=== PATIENT | female | born 1950 | race Caucasian/White ===

== ENCOUNTER 2018-04-21 06:08 | Inpatient (IN) ==
[~2018-04-21 06:08] MED LIST: SODIUM CHLORIDE IX ONE; TALC IX ONE
[2018-04-21] MEDS ORDERED: SUGAMMADEX SODIUM 500 MG/5 ML VIAL IV ONE (06:32)
--- NOTE | 2018-04-21 06:35 | Anesthesia Evaluation PreOp ---
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: Denies Any Significant HX Other Medical History: GERD, Other (esophageal cancer treated with chemo) Anesthesia History: No Prior Anesthetic Complications, Past Anesthesia (EDWARD, EGD, Hernia repair, c-scope) Alcohol Use: none Drug use: none Medications and Allergies Omeprazole [PriLOSEC] 20 mg PO BIDAC 12/12/17 [History] Lisinopril-HCTZ 10-12.5 [Prinzide 10-12.5] 10 - 12.5 mg DAILY 04/21/18 [History] Allergy/AdvReac Type Severity Reaction Status Date / Time No Known Allergies Allergy Verified 04/13/18 09:45 - Meds/Allergy Pre-op Review Medications Reviewed: Yes Allergies Reviewed: Yes Beta Blockers on Current Med List: No Anesthesia Results - Labs Laboratory Tests 03/01/18 04/13/18 04/13/18 08:17 09:50 09:50 Hgb 13.2 Hct 40.2 Plt Count 178 Sodium 137 Potassium 4.2 Chloride 102 Carbon Dioxide 26 BUN 15 Creatinine 0.95 Serum Total Protein 6.3 L - Imaging EKG: report reviewed (SINUS RHYTHM MARKED LEFT AXIS DEVIATION) Anesthesia Exam Weight: 77kg BMI35 NPO (# of Hours): 8 Pain Scale: 8 - HEENT Pupil (Motor): EOMI Mallampati: II Teeth: Edentulous Oral Opening: Greater than 3 - FARM MANAGEMENT AGENT LOC: Oriented FARM MANAGEMENT AGENT Motor: Normal RUE, Normal LUE, Normal RLE, Normal LLE, Normal Face FARM MANAGEMENT AGENT Sensory: Normal: RUE, LUE, RLE, LLE, Face - Cardiac Rhythm: Regular Murmur: None - Pulmonary Breath Sounds: bilateral Clear Respiratory Effort: Symmetrical Anesthesia Assess/Plan ASA Score: 3 Level of consciousness: Cooperative, Oriented, Tranquil Anesthetic Plan: General Monitoring Plan: Standard Monitors, A-Line Recovery Plan: PACU (agrees to GA, a-line, bllod and possible ICU stay. Aware of possible prolonged intubation)
[2018-04-21] MEDS ORDERED: *HR* FentaNYL (PF) 100 MCG/2 ML VIAL ONE ×2 (06:37→10:50)
[2018-04-21] MEDS ORDERED: Lidocaine -MPF 2% 2 ML VIAL ONE ×2 (06:38→06:48)
[2018-04-21] MEDS ORDERED: *HR* Propofol 200 MG/20 ML VIAL IVP ONE ×2 (06:39→13:15)
[2018-04-21] MEDS ORDERED: Dexamethasone 4 MG/ML VIAL ONE (06:40)
[2018-04-21] MEDS ORDERED: Ondansetron 4 MG/2 ML VIAL ONE (06:40)
[2018-04-21] MEDS ORDERED: *HR* Succinylcholine 200 MG/10 ML VIAL IVP ONE ×2 (06:40→13:28)
[2018-04-21] MEDS ORDERED: *HR* Rocuronium Bromide 50 MG/5 ML VIAL ONE (06:40)
[2018-04-21] MEDS ORDERED: Albuterol 2.5 MG/3 ML NEBULIZER IH ONE (06:44)
[2018-04-21] MEDS ORDERED: Albuterol 2.5 MG/3 ML NEBULIZER ONE (06:46)
[2018-04-21] MEDS ORDERED: CeFAZolin Syr 2,000MG/20 ML 2,000 MG/20 ML SYRINGE IVPB ONE (06:56)
[2018-04-21] MEDS ORDERED: Ketorolac 30 MG/ML VIAL ONE (07:01)
--- NOTE | 2018-04-21 07:03 | History & Physical Report ---
Date of Encounter: 04/21/18 Time of Encounter: 07:00 24 Hour HP Update - Instructions Instructions: If the History and Physical is less than 30 days old and was completed prior to A.M. admission and or procedure and has NOT been updated on calendar day of procedure please complete this update prior to performing procedure. - Update Patient reports changes in Medical Condition: No Changes in examination, assessment, or condition: No Changes in Medication: No Preop tests/diagnostics Reviewed: Yes Surgery Remains Indicated: Yes Consent for Planned Operative Procedure(s) Verified: Yes - Pre-Operative Checklist Preoperative Checklist Indicated: Yes Prophylactic Antibiotic Ordered: Yes Home Medications Include Beta Usha: No Is VTE Prophylaxis Indicated?: Yes
[2018-04-21] MEDS ORDERED: KETAMINE HCL 50 MG/ML SYRINGE IV ONE (07:08)
--- NOTE | 2018-04-21 07:30 | History & Physical Report ---
Date of Encounter: 04/21/18 Time of Encounter: 07:30 24 Hour HP Update - Instructions Instructions: If the History and Physical is less than 30 days old and was completed prior to A.M. admission and or procedure and has NOT been updated on calendar day of procedure please complete this update prior to performing procedure. - Update Patient reports changes in Medical Condition: No Changes in examination, assessment, or condition: No Changes in Medication: No Preop tests/diagnostics Reviewed: No Pre-Op MRSA Screen: Negative Surgery Remains Indicated: Yes Consent for Planned Operative Procedure(s) Verified: Yes - Pre-Operative Checklist Preoperative Checklist Indicated: Yes Prophylactic Antibiotic Ordered: Yes Home Medications Include Beta Usha: No Beta Usha Taken Today (Day of Surgery): No Beta Usha Taken Yesterday (Day Prior to Surgery): No Is VTE Prophylaxis Indicated?: Yes
[2018-04-21] MEDS: Ringers Solution, Lactated 1,000 ML IVC SCH ×3 (07:43→20:27)
[2018-04-21] MEDS ORDERED: LIDOCAINE 1% PF 2 ML AMPUL ONE (07:50)
[2018-04-21] MEDS ORDERED: Albumin Human 5% 25.0 GM/500 ML VIAL ONE (11:26)
[2018-04-21] MEDS ORDERED: *HR* Vasopressin 20 UNIT/ML VIAL ONE (11:27)
[2018-04-21] MEDS ORDERED: *HR* Midazolam HCl 2 MG/2 ML VIAL ONE (11:27)
[2018-04-21] MEDS ORDERED: Vasopressin 40 UNIT in D5% in Water 100 ML IV SCH (13:00)
[2018-04-21] MEDS ORDERED: *HR* PHENYLEPHRINE 1,000 MCG/10 ML SYRINGE IVP ONE (13:29)
[2018-04-21] MEDS ORDERED: Lidocaine -MPF 1% 5 ML AMPUL INFILT ONE ×2 (13:50→15:06)
--- NOTE | 2018-04-21 14:09 | Operative Note ---
Date of procedure: 04/21/18 Pre-op diagnosis: Esophageal cancer Post-op diagnosis: same Procedure: #1 transhiatal esophagectomy #2 jejunostomy Anesthesia: MIRYAM Surgeon: Дмитрий Lennon Was there an events and promotions assistant present: Yes Center Consultant: Alli Kumar Estimated blood loss (cc): 200 Specimen: Esophagogastrectomy Condition: stable Disposition: ICU Procedure in Detail: After informed consent the patients taking major operative suite placed supine position given adequate general endotracheal anesthesia. Timeout was taken and patient was identified. Dr. Kumar performed bronchoscopy to confirm that there was no evidence of tissue reaction or invasion in the membranous portion of the trachea or mainstem bronchus on the right lower left. The bronchoscopy appeared to be within normal limits and we decided to proceed with transhiatal esophagectomy without thoracoscopy. The patient was positioned. I started with the neck incision. I made an oblique incision and dissected down the sternocleidomastoid muscle was retracted posteriorly. The jugular vein and the carotid artery were retracted posteriorly the left lobe of the thyroid was retracted anteriorly and I identified the recurrent laryngeal nerve. The nerve was preserved. I was able to identify and surround the esophagus. I started the dissection into the superior mediastinum staying close to the esophagus. Dissection was carried down 8-10 cm. There was no bleeding. Nasogastric tube was advanced to the level of stenosis. Nasogastric tube assist in the dissection. I surrounded the esophagus with a Mcdermitt drain. Attention was then turned to the abdomen. Made a bilateral subcostal bucket handle incision. The abdomen was entered. There was no evidence of metastatic disease. I performed a Berwick maneuver mobilizing the duodenum all the way to the inferior vena cava. The hepatocolic ligament was divided and mobilized. The gastroepiploic artery and vascular arcade was identified and preserved at all times. I divided the omentum off the stomach with clamps and hemostatic ligatures and entered the lesser sac. The lesser sac was scarred and had to be divided manually. Once this was done I began to divide the tissue on the greater curvature the stomach past the last entry site of the gastroepiploic. Most short gastrics had already been taken down from previous Della fundoplication. The gastroesophageal junction was densely scarred with previous Della fundoplication. I undertook a lysis of adhesions and dissection lasting 1 hour to completely take down the Della fundoplication and mobilize and identify the right and left crura of the diaphragm. I was able to make an initial dissection and mediastinum and successfully passed nasogastric tube past the area of stenosis into the stomach. Arterial line had previously been placed and using arterial line guidance for any changes and systolic blood pressure secondary to cardiac compression, I performed a series of mediastinal blunt dissections mobilizing the distal esophagus. Each time the patient should not became hypotensive from compression I removed my arm from the mediastinum and allow the patient recovered. Dissection was carried out until I could reach a ring clamp from the cervical dissection posteriorly along the anterior spinal fascia. I then worked to closely dissected the tissues free from the right and left side of the esophagus until complete mobilization was achieved the nasogastric tube was pulled back and the esophagus was divided at the level of clavicles. I sutured a Jose drain to the esophagus and brought the esophagus and stomach out through the abdominal incision. Gastrectomy was then performed with WILLIS stapler making a lucille-esophagus out of the greater curvature of the stomach. The staple line used 3 loads of WILLIS and was reinforced along its entire length using interrupted 2-[address] Kumar was present for the mediastinal issection in its entirety Pyloroplasty was performed. I opened the pylorus axial and closed longitudinally with interrupted 2-0 Silk. This gave an excellent technical result. The lucille-esophagus was then passed into the posterior mediastinum and placed in a tension-free manner in the lower neck. I aligned the esophagus and stomach in such way that I was able to open the distal staple line of the esophagus and the side of the stomach and advance the laparoscopic stapler from distal to proximal. Stapler was fired. I closed the resulting enterotomy with interrupted Vicryl and silk this gave an excellent technical result. The stomach was sutured to the anterior cervical fascia above the anastomosis creating a completely tension-free anastomosis. Thomas-Stratton drain was placed. The neck was closed in multiple layers using interrupted 2-0 Vicryl. Skin clips were used on the skin. X I returned the abdomen and identified the proximal jejunum. I brought up a loop of jejunum and placed a pursestring stitch. A red rubber catheter was then placed in the distal bowel limb. The pursestring stitch was tied. I then created a Witzel tunnel with 3 stitches of 2-0 silk. This gave an excellent technical result. I was concerned that there may be a relative obstruction at the level of the jejunostomy decided to perform a [id number] enteroenterostomy about 15 cm past the Witzel tunnel. A side to side anastomosis was created using 2-0 silk for the seromuscular layer and running 3-0 chromic for the mucosal layer. This gave an excellent technical result. I irrigated with copious amounts of antibiotic containing solution. I injected 30 mL of Marcaine for local pain management. The abdomen was closed with looped 0 PDS on the posterior fascia and looped 0 PDS on the anterior fascia. Skin was closed with interrupted 2-0 Vicryl's and skin clips. All sponge and needle counts were cor rect. Total blood loss 200 mL. Specimen was sent as esophagogastrectomy. Patient tolerated the procedure well and was transferred to the intensive care unit in stable condition.
--- NOTE | 2018-04-21 14:10 | Event Note ---
Date of Encounter: 04/21/18 Time of Encounter: 14:07 Pt to ICU s/p (see op report) NG in place; Secure and do not reposition EL to neck, maintain suction. Daily dressing care. See orders Plug J-tube, no need for drain PICC/TPN Daily labs LR @ 100 ml May bolus 500 ml for SBP less thna 90, not to exceed 1500 ml. Call surgeon if f urther orders needed Ancef 2G Q8H x2 doses
[2018-04-21] MEDS ORDERED: Phenylephrine 20 MG in D5% in Water 500 ML IVC SCH (14:30)
[2018-04-21] MEDS ORDERED: D10% in Water 500 ML IVC PRN (14:40)
[2018-04-21 15:27] LABS: Basophils % 0.2 %; Hematocrit 27.9 % (35.3-44.9); Immature Granulocytes % 0.3 % (0-4); Lymphocytes # 0.4 K/mcL (0.6-4.6); Lymphocytes % 3.4 %; Mean Corpuscular HGB Conc 32.3 g/dL (31.6-35.5); Mean Corpuscular Hemoglobin 31.9 pg (28.0-33.3); Mean Corpuscular Volume 98.9 fL (83.0-100.0); Mean Platelet Volume 9.3 fL (9.4-12.4); Monocytes # 0.6 K/mcL (0.0-1.3); Neutrophils # 11.6 K/mcL (1.6-8.9); Platelet Count 142 K/mcL (140-400); Red Blood Count 2.82 M/mcL (3.82-4.97); Red Cell Distribution Width 12.9 % (11.5-14.5); Segmented Neutrophils % 91.1 %
[2018-04-21 15:36] LABS: BUN/Creatinine Ratio 20 (6-26); Blood Urea Nitrogen 16 mg/dL (8-23); Calcium 8.1 mg/dL (8.6-10.3); Carbon Dioxide 21 mEq/L (23-29); Chloride 106 mEq/L (98-107); Glucose 229 mg/dL (70-105); Magnesium 1.2 mg/dL (1.6-2.6); Osmolality,Calculated 288 (280-300); Phosphorous 4.8 mg/dL (2.7-4.5); Potassium 3.9 mEq/L (3.5-5.1); Sodium 135 mEq/L (136-145); eGFR For Non-African Americans > 60 (> 60)
[2018-04-21] MEDS ORDERED: Clinimix E 5%-15% SOLUTION 2,000 ML with MVI, adult with vitamin K 10 ML IVC SCH (17:00)
[2018-04-21] MEDS ORDERED: *HR* Heparin 5,000 UNIT/ML VIAL SQ SCH (18:00)
[2018-04-21] MEDS ORDERED: Ondansetron 4 MG/2 ML VIAL IVP PRN (19:10)
[2018-04-21] MEDS ORDERED: OXYCODONE Oral CONC 10 MG/0.5 ML ORAL.SYG SL PRN (19:10)
[2018-04-21] MEDS ORDERED: Ringers Solution, Lactated 500 ML IVC PRN (19:10)
[2018-04-21] MEDS ORDERED: *HR* Promethazine 25 MG/ML VIAL IVP PRN (19:10)
[2018-04-21] MEDS: Acetaminophen IV 1,000 MG/100 ML INFUS..BTL IVPB SCH (20:26)
[2018-04-21] MEDS: Phenylephrine 10 MG in D5% in Water 250 ML IVC SCH (21:55)
[2018-04-21] MEDS: OXYCODONE Oral CONC 10 MG/0.5 ML ORAL.SYG SL PRN (23:46)
[2018-04-21] MEDS ORDERED: D5% in Water 1,000 ML IVC PRN (23:59)
[2018-04-21] MEDS ORDERED: Dextrose Gel 15 GM/37.5 ML TUBE PO PRN ×2 (23:59)
[2018-04-21] MEDS ORDERED: *HR* Dextrose 50 % in Water (Syg) 50 ML SYRINGE IVP PRN (23:59)
[2018-04-22] MEDS: Insulin LISPRO 300 UNITS/3 ML VIAL SQ SCH ×4 (00:12→20:44)
[2018-04-22] MEDS: Vasopressin 40 UNIT in D5% in Water 100 ML IV SCH (00:57)
[2018-04-22] MEDS: Acetaminophen IV 1,000 MG/100 ML INFUS..BTL IVPB SCH ×4 (01:05→20:30)
[2018-04-22] MEDS: Ringers Solution, Lactated 1,000 ML IVC SCH ×3 (03:26→20:33)
[2018-04-22 03:33] LABS: Basophils % 0.1 %; Hematocrit 26.8 % (35.3-44.9); Hemoglobin 9.2 g/dL (11.5-15.4); Immature Granulocytes % 0.3 % (0-4); Lymphocytes # 0.6 K/mcL (0.6-4.6); Lymphocytes % 3.7 %; Mean Corpuscular HGB Conc 34.3 g/dL (31.6-35.5); Mean Corpuscular Volume 96.1 fL (83.0-100.0); Mean Platelet Volume 9.7 fL (9.4-12.4); Monocytes # 0.9 K/mcL (0.0-1.3); Neutrophils # 13.4 K/mcL (1.6-8.9); Platelet Count 121 K/mcL (140-400); Red Blood Count 2.79 M/mcL (3.82-4.97); Red Cell Distribution Width 12.9 % (11.5-14.5); Segmented Neutrophils % 89.9 %
[2018-04-22 03:55] LABS: BUN/Creatinine Ratio 29 (6-26); Blood Urea Nitrogen 25 mg/dL (8-23); Calcium 8.1 mg/dL (8.6-10.3); Carbon Dioxide 20 mEq/L (23-29); Chloride 102 mEq/L (98-107); Glucose 231 mg/dL (70-105); Osmolality,Calculated 284 (280-300); Phosphorous 3.7 mg/dL (2.7-4.5); Potassium 4.2 mEq/L (3.5-5.1); Sodium 131 mEq/L (136-145); eGFR For Non-African Americans > 60 (> 60)
[2018-04-22] MEDS ORDERED: *HR* Heparin 5,000 UNIT/ML VIAL SQ SCH (06:00)
[2018-04-22] MEDS: Pantoprazole 40 MG VIAL IVP SCH (08:12)
[2018-04-22] MEDS: OXYCODONE Oral CONC 10 MG/0.5 ML ORAL.SYG SL PRN (08:13)
--- NOTE | 2018-04-22 12:21 | Operative Note ---
Date of procedure: 04/21/18 Pre-op diagnosis: esophageal cancer s/p concurrent neoadjuvant chemotherap and radiation ther Post-op diagnosis: same Procedure: bronchoscopy, trans hiatal esophagogastrectomy Anesthesia: GETA Surgeon: Дмитрий Lennon Co-Surgeon: Alli Kumar Was there an clerical dentist assistant present: No Estimated blood loss (cc): 200 Specimen: distal esophagus and proximal stomach Condition: stable Disposition: ICU Procedure in Detail: The patient was brought to the operating room and placed on the operating room table in the supine position. After undergoing general anesthesia with sequential compressive devices on bilateral lower extremities and perioperative antibiotics on board a flexible bronchoscopy was performed due to the proximity of the cancer to the emory and membranous portion of the trachea. Fortunately, I did not appreciate any involvement of the emory or distal mainstem bronchus. Because of this we move forward with the exploratory laparotomy and planned esophagogastrectomy with gastric pull-up. I did assist Dr. Lennon with the posterior visceral dissection within the chest. Dr. Lennon completed the resection, anastomosis, and feeding tube.
[2018-04-22] MEDS ORDERED: Isovue-370 500 ML BOTTLE IVP ONE (12:37)
[2018-04-22] MEDS ORDERED: MAGNESIUM SULFATE IVPB ONE (12:40)
[2018-04-22] MEDS ORDERED: SODIUM CHLORIDE 0.9% IVPB ONE (12:40)
[2018-04-22 12:57] LABS: Basophils % 0.1 %; Hematocrit 26.9 % (35.3-44.9); Immature Granulocytes % 0.3 % (0-4); Lymphocytes # 0.7 K/mcL (0.6-4.6); Lymphocytes % 3.6 %; Mean Corpuscular HGB Conc 33.5 g/dL (31.6-35.5); Mean Corpuscular Hemoglobin 32.4 pg (28.0-33.3); Mean Corpuscular Volume 96.8 fL (83.0-100.0); Mean Platelet Volume 9.5 fL (9.4-12.4); Monocytes # 1.1 K/mcL (0.0-1.3); Monocytes % 5.8 %; Neutrophils # 16.5 K/mcL (1.6-8.9); Platelet Count 112 K/mcL (140-400); Red Blood Count 2.78 M/mcL (3.82-4.97); Segmented Neutrophils % 90.2 %
[2018-04-22 13:06] LABS: INR 1.2; Prothrombin Time 13.2 Seconds (9.4-12.1)
[2018-04-22 13:09] LABS: Activated Partial Thrombo Time 25.1 Seconds (26.0-36.0)
[2018-04-22 13:16] LABS: Albumin 2.8 g/dL (3.5-5.7); Albumin/Globulin Ratio 1.6 (1.1-2.2); Bilirubin,Total 0.4 mg/dL (0.3-1.0); Calcium 8.2 mg/dL (8.6-10.3); Globulin 1.7 g/dL (2.4-3.5); Potassium 4.7 mEq/L (3.5-5.1); Total Protein 4.5 g/dL (6.4-8.9)
[2018-04-22] MEDS: *HR* HYDROmorphone (PF) 1 MG/ML SYRINGE IVP PRN ×2 (13:30→17:04)
--- NOTE | 2018-04-22 13:50 | Operative Note ---
Date of procedure: 04/22/18 Pre-op diagnosis: bilateral hemothorax Post-op diagnosis: same Procedure: bilateral chest tube placement Anesthesia: local Surgeon: Alli Kumar Was there an assistant professor of surgery present: No Estimated blood loss (cc): 0 Specimen: 550 left, 575 right Condition: stable Disposition: ICU Procedure in Detail: in the intensive care unit with cardiopulmonary monitoring, bilateral chest tubes were placed after prepping the skin with betadine, administering 25cc [address] sterile dressings applied. follow up chest xray greatly improved
--- NOTE | 2018-04-22 14:12 | General Surgery Progress Note ---
Date of Encounter: 04/22/18 Time of Encounter: 14:10 - Assessment and Plan (1) History of esophagectomy Current Visit: Yes Status: Acute pod 1 transhiatal esophagectomy for esophageal cancer patients vitals stable overnight although at time hypotensive patient complaining of pain left neck EL drain began continuously draining blood, thoracic surgery (present during surgery) came and evaluated patient CTA chest done showing bilateral hemothoraces, bilateral chest tubes placed by Dr Bennett (500 cc blood out left, 450cc blood from right), EL drain stopped draining vitals stable Hb unchanged since yesterday = 9.0 trend Hb transfuse as needed for instability or Hb < 7 npo ngt to contin suction HOB 30 prn pain control gi/dvt prophylaxis (2) Anemia Current Visit: Yes Status: Acute dilutional and secondary to blood loss monitor hold heparin currently Qualifiers: Anemia type: unspecified type Qualified Code(s): D64.9 - Anemia, unspecified (3) Hemothorax on left Current Visit: Yes Status: Acute CT management pulmonary toilet IS scheduled aerosols daily CXR (4) Hemothorax on right Current Visit: Yes Status: Acute CT management pulmonary toilet IS scheduled aerosols daily CXR Subjective Patient reports: still having pain, no flatus, no bowel movement, afebrile (nurse called me to evaluate patient, EL drain in left neck started continuously draining darker thin blood, 300cc in 15 minutes, is not stopping) Objective Vital Signs - Last 8 Hours Temp Pulse Resp BP Pulse Ox 04/22/18 11:00 95 18 103/70 93 04/22/18 10:00 102 18 92/46 93 04/22/18 09:00 100 24 91/51 96 04/22/18 08:00 102 24 92/50 93 04/22/18 07:36 98.6 F 04/22/18 07:00 100 Intake and Output 04/21/18 04/22/18 04/22/18 23:59 07:59 15:59 Intake Total 1452 / 1452 1213 / 1213 1100 / 1100 Output Total 425 / 425 215 / 215 20 / 20 Balance 1027 / 1027 998 / 998 1080 / 1080 Intake: IV Fluids 1452 / 1452 1213 / 1213 1100 / 1100 Phenylephrine 10 MG In Dextrose 113 / 113 5% 250 ML @ 80 MCG/MIN 120.48 mls/hr IVC CONT [facility] Rx#: [id number] Phenylephrine 20 MG In Dextrose 252 / 252 5% 500 ML @ 50 MCG/MIN 75.3 mls/hr IVC CONT [facility]BI Rx#: [id number] Lactated Ringers 1,000 ML @ 100 1000 / 1000 1000 / 1000 1000 / 1000 mls/hr IVC .Q10H [facility] Rx#: [id number] Ofirmev 1,000 mg/100 ml 1,000 100 / 100 100 / 100 100 / 100 mg In 100 ml @ 400 mls/hr IVPB Q6H [facility] Rx#:[id number] Ancef 2,000 MG In 0.9 % Sodium 100 / 100 Chloride 100 ML @ 200 mls/hr IVPB Q8H [facility] Rx#:[id number] Output: Catheter 325 / 325 175 / 175 Gastric Drainage 0 / 0 0 / 0 Wound Drainage 100 / 100 40 / 40 20 / 20 Left Neck 100 / 100 40 / 40 20 / 20 Other: Weight 82.7 kg Blood Glucose* 239 156 Patient Weight 04/22/18 23:59 Weight 82.7 kg - General physical appearance well developed, well nourished, moderate distress, moderate pain - Eyes normal ocular movement - ENT dry mucosa, atraumatic, normocephalic - Neck Neck exam: trachea midline, other (no left neck swelling or hematoma, incision C/D/I with lazara) - Respiratory normal expansion, other (decreased breath sounds bilaterally) - Cardiovascular Cardiovascular exam: Present: tachycardia - Abdomen Abdomen: Present: soft, tender (appropraite post op tenderness). Absent: bowel sounds present, guarding - Incision Incision: Present: clean and dry, intact - Integumentary no rash, no growths - Neurologic CN 2-12 grossly intact - Musculoskeletal normal posture - Psychiatric oriented to time, oriented to person, oriented to place, speech is normal, memory intact - Labs 04/22/18 12:39 04/22/18 12:39 Diabetes panel 04/21/18 04/21/18 04/22/18 Range/Units 14:55 19:49 03:19 Sodium 135 L 131 L (136-145) mEq/L Potassium 3.9 4.2 (3.5-5.1) mEq/L Chloride 106 102 (98-107) mEq/L Carbon Dioxide 21 L 20 L (23-29) mEq/L BUN 16 25 H (8-23) mg/dL Creatinine 0.79 0.87 (0.60-1.20) mg/dL Glucose 229 H 231 H (70-105) mg/dL Calcium 8.1 L 8.1 L (8.6-10.3) mg/dL AST (13-39) Units/L ALT (7-52) Units/L Alkaline Phosphatase (34-104) Units/L Albumin 3.1 L (3.5-5.7) g/dL Triglycerides (< 150) mg/dL 04/22/18 04/22/18 04/22/18 Range/Units 03:19 03:19 12:39 Sodium 132 L (136-145) mEq/L Potassium 4.7 (3.5-5.1) mEq/L Chloride 101 (98-107) mEq/L Carbon Dioxide 23 (23-29) mEq/L BUN 34 H (8-23) mg/dL Creatinine 1.10 (0.60-1.20) mg/dL Glucose 130 H (70-105) mg/dL Calcium 8.2 L (8.6-10.3) mg/dL AST 63 H (13-39) Units/L ALT 25 (7-52) Units/L Alkaline Phosphatase 35 (34-104) Units/L Albumin 2.8 L 2.8 L (3.5-5.7) g/dL Triglycerides 103 (< 150) mg/dL Calcium panel 04/21/18 04/21/18 04/22/18 Range/Units 14:55 19:49 03:19 Calcium 8.1 L 8.1 L (8.6-10.3) mg/dL Phosphorus 4.8 H 3.7 (2.7-4.5) mg/dL Albumin 3.1 L (3.5-5.7) g/dL 04/22/18 04/22/18 Range/Units 03:19 12:39 Calcium 8.2 L (8.6-10.3) mg/dL Phosphorus (2.7-4.5) mg/dL Albumin 2.8 L 2.8 L (3.5-5.7) g/dL Pituitary panel 04/21/18 04/22/18 04/22/18 Range/Units 14:55 03:19 12:39 Sodium 135 L 131 L 132 L (136-145) mEq/L Potassium 3.9 4.2 4.7 (3.5-5.1) mEq/L Chloride 106 102 101 (98-107) mEq/L Carbon Dioxide 21 L 20 L 23 (23-29) mEq/L BUN 16 25 H 34 H (8-23) mg/dL Creatinine 0.79 0.87 1.10 (0.60-1.20) mg/dL Glucose 229 H 231 H 130 H (70-105) mg/dL Calcium 8.1 L 8.1 L 8.2 L (8.6-10.3) mg/dL Adrenal panel 04/21/18 04/21/18 04/22/18 Range/Units 14:55 19:49 03:19 Sodium 135 L 131 L (136-145) mEq/L Potassium 3.9 4.2 (3.5-5.1) mEq/L Chloride 106 102 (98-107) mEq/L Carbon Dioxide 21 L 20 L (23-29) mEq/L BUN 16 25 H (8-23) mg/dL Creatinine 0.79 0.87 (0.60-1.20) mg/dL Glucose 229 H 231 H (70-105) mg/dL Calcium 8.1 L 8.1 L (8.6-10.3) mg/dL Total Bilirubin (0.3-1.0) mg/dL AST (13-39) Units/L ALT (7-52) Units/L Alkaline Phosphatase (34-104) Units/L Albumin 3.1 L (3.5-5.7) g/dL 04/22/18 04/22/18 Range/Units 03:19 12:39 Sodium 132 L (136-145) mEq/L Potassium 4.7 (3.5-5.1) mEq/L Chloride 101 (98-107) mEq/L Carbon Dioxide 23 (23-29) mEq/L BUN 34 H (8-23) mg/dL Creatinine 1.10 (0.60-1.20) mg/dL Glucose 130 H (70-105) mg/dL Calcium 8.2 L (8.6-10.3) mg/dL Total Bilirubin 0.4 (0.3-1.0) mg/dL AST 63 H (13-39) Units/L ALT 25 (7-52) Units/L Alkaline Phosphatase 35 (34-104) Units/L Albumin 2.8 L 2.8 L (3.5-5.7) g/dL - Imaging CT scan - chest: report reviewed, image reviewed Consult Discharge Plan - Plan Referrals: Maia Barksdale, FADIA [Primary Care Provider] -
[2018-04-22] MEDS: Ipratropium/Albuterol Neb 3 ML IH SCH ×2 (16:37→22:42)
[2018-04-22] MEDS ORDERED: Clinimix E 5%-15% SOLUTION 2,000 ML with MVI, adult with vitamin K 10 ML IVC SCH (17:00)
[2018-04-22 17:57] LABS: BUN/Creatinine Ratio 35 (6-26); Blood Urea Nitrogen 38 mg/dL (8-23); Calcium 8.1 mg/dL (8.6-10.3); Carbon Dioxide 21 mEq/L (23-29); Chloride 102 mEq/L (98-107); Glucose 144 mg/dL (70-105); Osmolality,Calculated 282 (280-300); Potassium 4.6 mEq/L (3.5-5.1); Sodium 130 mEq/L (136-145); eGFR For Non-African Americans 50 (> 60)
[2018-04-23] MEDS: *HR* HYDROmorphone (PF) 1 MG/ML SYRINGE IVP PRN ×2 (00:07→05:59)
[2018-04-23] MEDS: Insulin LISPRO 300 UNITS/3 ML VIAL SQ SCH ×4 (00:11→18:18)
[2018-04-23] MEDS: Acetaminophen IV 1,000 MG/100 ML INFUS..BTL IVPB SCH ×4 (02:02→23:06)
[2018-04-23] MEDS: Ipratropium/Albuterol Neb 3 ML IH SCH ×4 (04:06→22:21)
[2018-04-23] MEDS: Phenylephrine 10 MG in D5% in Water 250 ML IVC SCH (04:18)
[2018-04-23 04:55] LABS: Magnesium 3.2 mg/dL (1.6-2.6); Phosphorous 5.8 mg/dL (2.7-4.5); Potassium 4.8 mEq/L (3.5-5.1)
[2018-04-23 06:41] LABS: Basophils % 0.1 %; Hematocrit 24.7 % (35.3-44.9); Hemoglobin 8.2 g/dL (11.5-15.4); Immature Granulocytes % 0.7 % (0-4); Lymphocytes # 0.5 K/mcL (0.6-4.6); Lymphocytes % 3.1 %; Mean Corpuscular HGB Conc 33.2 g/dL (31.6-35.5); Mean Corpuscular Hemoglobin 32.7 pg (28.0-33.3); Mean Corpuscular Volume 98.4 fL (83.0-100.0); Mean Platelet Volume 10.1 fL (9.4-12.4); Monocytes # 0.9 K/mcL (0.0-1.3); Monocytes % 5.3 %; Platelet Count 109 K/mcL (140-400); Red Blood Count 2.51 M/mcL (3.82-4.97); Red Cell Distribution Width 13.2 % (11.5-14.5); Segmented Neutrophils % 90.8 %
[2018-04-23] MEDS: Pantoprazole 40 MG VIAL IVP SCH (08:28)
[2018-04-23] MEDS ORDERED: Furosemide 20 MG/2 ML VIAL IVP ONE (08:48)
--- NOTE | 2018-04-23 08:51 | Cardiothoracic Progress Note ---
Date of Encounter: 04/23/18 Time of Encounter: 08:49 - Assessment and plan (1) Esophageal cancer Current Visit: Yes Status: Acute The assessment and plan as outlined above was discussed with the patient and/or family members who expressed understanding and agreement. All questions were answered. could remove a line today. enteral feeds to start tomorrow. (2) Hemothorax, postoperative Current Visit: Yes Status: Acute The assessment and plan as outlined above was discussed with the patient and/or family members who expressed understanding and agreement. All questions were answered. chest xray reviewed. give 20 lasix. continue chest tubes to suction. hopefully remove left chest tube tomorrow. - Subjective Interval history: stable over night Vital Signs, Last 4 Hours Temp Pulse Resp BP Pulse Ox 04/23/18 08:00 98.2 F 93 16 105/45 97 04/23/18 07:00 93 04/23/18 06:00 91 16 98/52 96 04/23/18 05:00 89 16 120/55 98 Oxgyen Flow Rate Oxygen Flow Rate (LPM) 4 Clinical Data, last 8 Hours Output, Chest Tube Drainage 20 Amount [Right Mid-Axillary Chest] Output, Chest Tube Drainage 220 Amount [Right Mid-Axillary Chest] Output, Chest Tube Drainage 0 Amount [Left Mid-Axillary Chest] Output, Chest Tube Drainage 50 Amount [Left Mid-Axillary Chest] Weight 04/21/18 04/22/18 04/23/18 23:59 23:59 23:59 Weight 77.111 kg 82.7 kg 83.2 kg - Physical Examination General: Other (responds to questions) HEENT: Atraumatic, Normocephaly Cardiac: Reg Rate and Rhythm, Normal S1 and S2 Chest tubes: Minimal drainage, Other (dressings clean ) Lungs: Decreased breath sounds - Labs 04/23/18 06:27 04/23/18 03:44 Lab Results, Last 24 hours 04/22/18 04/22/18 04/22/18 12:39 12:39 12:39 WBC 18.3 H Hgb 9.0 L Hct 26.9 L Plt Count 112 L INR 1.2 APTT 25.1 L Sodium 132 L Potassium 4.7 Chloride 101 Carbon Dioxide 23 BUN 34 H Creatinine 1.10 Glucose 130 H Calcium 8.2 L Magnesium Total Bilirubin 0.4 AST 63 H ALT 25 Alkaline Phosphatase 35 04/22/18 04/23/18 04/23/18 17:18 03:44 06:27 WBC 17.6 H Hgb 8.2 L Hct 24.7 L Plt Count 109 L INR APTT Sodium 130 L 129 L Potassium 4.6 4.8 Chloride 102 101 Carbon Dioxide 21 L 21 L BUN 38 H 49 H Creatinine 1.09 1.27 H Glucose 144 H 149 H Calcium 8.1 L 8.0 L Magnesium 4.0 H 3.2 H Total Bilirubin AST ALT Alkaline Phosphatase - Imaging Chest Xray: image reviewed Consult Discharge Plan - Plan Referrals: Maia Barksdale, BED OPERATOR [Primary Care Provider] -
[2018-04-23] MEDS: OXYCODONE Oral CONC 10 MG/0.5 ML ORAL.SYG SL PRN (11:09)
[2018-04-23] MEDS ORDERED: 0.9 % Sodium Chloride 1,000 ML IVC SCH (12:15)
[2018-04-23] MEDS ORDERED: *HR* HYDROmorphone 20 MG/20 ML PCA IVC PRN (12:25)
--- NOTE | 2018-04-23 12:25 | General Surgery Progress Note ---
Date of Encounter: 04/23/18 Time of Encounter: 12:22 - Assessment and Plan (1) History of esophagectomy Current Visit: Yes Status: Acute pod 2 transhiatal esophagectomy for esophageal cancer patients vitals stable overnight patient complaining of significant pain - start dilaudid precision machinist, continue scheduled ofirmev, start lidocaine patch over RUQ incision Hb stable platelts decreasing, monitor npo - ok glycerin swabs TPN/NS ngt to contin suction HOB 30 gi/dvt prophylaxis (epcd's/protonix) aggressive pulmonary toilet - poor cough effort currently due to pain daily dressing changes CT management per Dr Kumar (2) Anemia Current Visit: Yes Status: Acute dilutional and secondary to blood loss monitor hold heparin currently Qualifiers: Anemia type: unspecified type Qualified Code(s): D64.9 - Anemia, unspecified (3) Hemothorax on left Current Visit: Yes Status: Acute CT management pulmonary toilet IS scheduled aerosols daily CXR minimal CT output overnight (4) Hemothorax on right Current Visit: Yes Status: Acute CT management pulmonary toilet IS scheduled aerosols daily CXR minimal overnight output (5) Acute kidney injury Current Visit: Yes Status: Acute likely secondary to surgery and blood loss good uop clear yellow monitor continue silva for accurate I/O's (6) Leukocytosis Current Visit: Yes Status: Acute likely secondary to surgical intervention monitor Qualifiers: Leukocytosis type: unspecified Qualified Code(s): D72.829 - Elevated white blood cell count, unspecified Subjective Patient reports: no new complaints, still having pain, no flatus, no bowel movement, afebrile Objective Vital Signs - Last 8 Hours Temp Pulse Resp BP Pulse Ox 04/23/18 11:00 103 16 107/56 98 04/23/18 10:00 92 16 101/60 98 04/23/18 09:00 92 16 106/46 98 04/23/18 08:00 98.2 F 93 16 105/45 97 04/23/18 07:00 93 04/23/18 06:00 91 16 98/52 96 04/23/18 05:00 89 16 120/55 98 04/23/18 04:28 98.6 F Intake and Output 04/22/18 04/23/18 04/23/18 23:59 07:59 15:59 Intake Total 1000 / 1000 398 / 398 100 / 100 Output Total 940 / 940 430 / 430 175 / 175 Balance 60 / 60 -32 / -32 -75 / -75 Intake: IV Fluids 1000 / 1000 398 / 398 100 / 100 Phenylephrine 10 MG In Dextrose 198 / 198 5% 250 ML @ 80 MCG/MIN 120.48 mls/hr IVC CONT [facility] Rx#: [id number] Lactated Ringers 1,000 ML @ 100 1000 / 1000 mls/hr IVC .Q10H [facility] Rx#: [id number] Ofirmev 1,000 mg/100 ml 1,000 200 / 200 100 / 100 mg In 100 ml @ 400 mls/hr IVPB Q6H [facility] Rx#:[id number] Output: Catheter 440 / 440 150 / 150 125 / 125 Gastric Drainage 170 / 170 0 / 0 30 / 30 Wound Drainage 40 / 40 10 / 10 0 / 0 Left Neck 40 / 40 10 / 10 0 / 0 Chest Tube Drainage 290 / 290 270 / 270 20 / 20 Left Mid-Axillary Chest 50 / 50 50 / 50 0 / 0 Right Mid-Axillary Chest 240 / 240 220 / 220 20 / 20 Other: Weight 83.2 kg Blood Glucose* 119 149 Patient Weight 04/23/18 23:59 Weight 83.2 kg - General physical appearance well developed, well nourished, moderate distress, moderate pain - Eyes normal ocular movement - ENT dry mucosa, normocephalic - Neck Neck exam: trachea midline - Respiratory normal expansion, clear to auscultation - Cardiovascular Cardiovascular exam: Present: tachycardia, no murmurs/rubs/gallops - Abdomen Abdomen: Present: soft, tender (appropriate post op tenderness). Absent: bowel sounds present, distended, guarding, rebound Additional Comments: EL - serosang, left CT - serosan right CT - serosang Jtube - clamped - Incision Incision: Present: clean and dry, intact - Integumentary no rash - Neurologic CN 2-12 grossly intact - Musculoskeletal other (supine in left lateral position) - Psychiatric oriented to time, oriented to person, oriented to place, speech is normal, memory intact - Labs 04/23/18 06:27 04/23/18 03:44 Short CBC 04/23/18 04/22/18 Range/Units 06:27 12:39 WBC 17.6 H 18.3 H (4.3-11.1) K/mcL Hgb 8.2 L 9.0 L (11.5-15.4) g/dL Hct 24.7 L 26.9 L (35.3-44.9) % Plt Count 109 L 112 L (140-400) K/mcL Neutrophils # 16.0 H 16.5 H (1.6-8.9) K/mcL BMP 04/23/18 04/22/18 04/22/18 Range/Units 03:44 17:18 12:39 Sodium 129 L 130 L 132 L (136-145) mEq/L Potassium 4.8 4.6 4.7 (3.5-5.1) mEq/L Chloride 101 102 101 (98-107) mEq/L Carbon Dioxide 21 L 21 L 23 (23-29) mEq/L BUN 49 H 38 H 34 H (8-23) mg/dL Creatinine 1.27 H 1.09 1.10 (0.60-1.20) mg/dL Glucose 149 H 144 H 130 H (70-105) mg/dL Calcium 8.0 L 8.1 L 8.2 L (8.6-10.3) mg/dL Liver Function 04/22/18 Range/Units 12:39 Total Bilirubin 0.4 (0.3-1.0) mg/dL AST 63 H (13-39) Units/L ALT 25 (7-52) Units/L Alkaline Phosphatase 35 (34-104) Units/L Albumin 2.8 L (3.5-5.7) g/dL Vital Signs Temp Pulse Resp BP Pulse Ox 04/23/18 11:00 103 16 107/56 98 04/23/18 10:00 92 16 101/60 98 04/23/18 09:00 92 16 106/46 98 04/23/18 08:00 98.2 F 93 16 105/45 97 04/23/18 07:00 93 04/23/18 06:00 91 16 98/52 96 04/23/18 05:00 89 16 120/55 98 04/23/18 04:28 98.6 F 04/23/18 04:06 16 98 04/23/18 04:00 88 16 124/60 95 04/23/18 03:00 80 16 111/55 99 04/23/18 02:25 100 04/23/18 02:00 87 16 108/53 95 04/23/18 01:00 90 18 102/46 96 04/23/18 00:00 93 18 86/40 98 04/22/18 23:40 98.0 F 04/22/18 22:42 18 98 04/22/18 22:15 100 04/22/18 22:00 990 18 108/23 95 04/22/18 21:00 80 18 98/39 95 04/22/18 20:00 102 18 90/46 95 04/22/18 19:00 100 18 79/69 95 04/22/18 18:53 98.7 F 04/22/18 18:00 90 18 100/42 97 04/22/18 17:00 92 18 91/35 97 04/22/18 16:39 18 97 04/22/18 16:00 92 18 93/36 97 04/22/18 15:00 92 18 92/36 97 04/22/18 14:00 97.0 F L 95 16 96/43 97 04/22/18 13:00 114 24 97/43 89 Intake and Output 04/22/18 04/23/18 04/23/18 23:59 07:59 15:59 Intake Total 1000 / 1000 398 / 398 100 / 100 Output Total 940 / 940 430 / 430 175 / 175 Balance 60 / 60 -32 / -32 -75 / -75 Intake: IV Fluids 1000 / 1000 398 / 398 100 / 100 Phenylephrine 10 MG In Dextrose 198 / 198 5% 250 ML @ 80 MCG/MIN 120.48 mls/hr IVC CONT [facility] Rx#: [id number] Lactated Ringers 1,000 ML @ 100 1000 / 1000 mls/hr IVC .Q10H [facility] Rx#: [id number] Ofirmev 1,000 mg/100 ml 1,000 200 / 200 100 / 100 mg In 100 ml @ 400 mls/hr IVPB Q6H [facility] Rx#:[id number] Output: Catheter 440 / 440 150 / 150 125 / 125 Gastric Drainage 170 / 170 0 / 0 30 / 30 Wound Drainage 40 / 40 10 / 10 0 / 0 Left Neck 40 / 40 10 / 10 0 / 0 Chest Tube Drainage 290 / 290 270 / 270 20 / 20 Left Mid-Axillary Chest 50 / 50 50 / 50 0 / 0 Right Mid-Axillary Chest 240 / 240 220 / 220 Other: Weight 83.2 kg Blood Glucose* 119 149 Patient Weight 04/23/18 23:59 Weight 83.2 kg Consult Discharge Plan - Plan Referrals: Maia Barksdale, [employer] [Primary Care Provider] -
[2018-04-23] MEDS: 0.9 % Sodium Chloride 1,000 ML IVC SCH (13:14)
[2018-04-23] MEDS ORDERED: Clinimix E 5%-15% SOLUTION 2,000 ML with MVI, adult with vitamin K 10 ML IVC SCH (17:00)
[2018-04-23] MEDS: Clinimix E 5%-15% SOLUTION 2,000 ML with MVI, adult with vitamin K 10 ML IVC SCH (17:09)
[2018-04-24] MEDS: Ipratropium/Albuterol Neb 3 ML IH SCH ×4 (04:05→21:19)
[2018-04-24 04:24] LABS: Basophils % 0.1 %; Red Blood Count 2.22 M/mcL (3.82-4.97); Segmented Neutrophils % 88.1 %
[2018-04-24 04:26] LABS: Hematocrit 21.9 % (35.3-44.9); Hemoglobin 7.2 g/dL (11.5-15.4); Immature Granulocytes % 1.7 % (0-4); Lymphocytes # 0.6 K/mcL (0.6-4.6); Lymphocytes % 4.4 %; Mean Corpuscular HGB Conc 32.9 g/dL (31.6-35.5); Mean Corpuscular Hemoglobin 32.4 pg (28.0-33.3); Mean Corpuscular Volume 98.6 fL (83.0-100.0); Monocytes # 0.8 K/mcL (0.0-1.3); Monocytes % 5.7 %; Neutrophils # 11.9 K/mcL (1.6-8.9); Red Cell Distribution Width 13.2 % (11.5-14.5)
[2018-04-24 04:32] LABS: Platelet Count 98 K/mcL (140-400)
[2018-04-24 04:45] LABS: BUN/Creatinine Ratio 62 (6-26); Blood Urea Nitrogen 52 mg/dL (8-23); Calcium 8.2 mg/dL (8.6-10.3); Carbon Dioxide 24 mEq/L (23-29); Chloride 102 mEq/L (98-107); Glucose 156 mg/dL (70-105); Magnesium 2.4 mg/dL (1.6-2.6); Osmolality,Calculated 287 (280-300); Phosphorous 3.5 mg/dL (2.7-4.5); Potassium 4.3 mEq/L (3.5-5.1); Sodium 130 mEq/L (136-145); eGFR For Non-African Americans > 60 (> 60)
[2018-04-24] MEDS: Acetaminophen IV 1,000 MG/100 ML INFUS..BTL IVPB SCH ×4 (05:17→23:55)
[2018-04-24] MEDS: Insulin LISPRO 300 UNITS/3 ML VIAL SQ SCH ×5 (06:11→23:51)
[2018-04-24] MEDS: Vasopressin 40 UNIT in D5% in Water 100 ML IV SCH ×3 (08:40→17:55)
--- NOTE | 2018-04-24 08:48 | Cardiothoracic Progress Note ---
Date of Encounter: 04/24/18 Time of Encounter: 08:47 - Assessment and plan (1) Esophageal cancer Current Visit: Yes Status: Acute The assessment and plan as outlined above was discussed with the patient and/or family members who expressed understanding and agreement. All questions were answered. could remove a line today. enteral feeds to start tomorrow. (2) Hemothorax, postoperative Current Visit: Yes Status: Acute The assessment and plan as outlined above was discussed with the patient and/or family members who expressed understanding and agreement. All questions were answered. chest xray reviewed. continue chest tubes to suction . - Subjective Interval history: stable over night. patient states she is doing better Vital Signs, Last 4 Hours Temp Pulse Resp BP Pulse Ox 04/24/18 08:13 98.3 F 04/24/18 08:00 91 18 104/55 96 04/24/18 07:00 101 20 117/73 99 04/24/18 06:00 99 18 130/71 99 04/24/18 05:00 109 18 108/64 99 Oxgyen Flow Rate Oxygen Flow Rate (LPM) 4 Clinical Data, last 8 Hours Output, Chest Tube Drainage 30 Amount [Right Mid-Axillary Chest] Output, Chest Tube Drainage 70 Amount [Right Mid-Axillary Chest] Output, Chest Tube Drainage 50 Amount [Left Mid-Axillary Chest] Weight 04/22/18 04/23/18 04/24/18 23:59 23:59 23:59 Weight 82.7 kg 83.2 kg 84 kg - Physical Examination General: Conversant, No Apparent Distress HEENT: Atraumatic, Normocephaly Cardiac: Reg Rate and Rhythm, No Murmur Incision: Other (dressings with shadows. need changed ) Chest tubes: Other (thin serosanguinous drainage) Lungs: Normal Breath Sounds Neuro: Alert and responsive, No focal deficits noted, Cranial nerves intact Vascular: Normal capillary refill Extremities: No Edema, Normal Pulses - Labs 04/24/18 03:55 04/24/18 04:00 Lab Results, Last 24 hours 04/24/18 04/24/18 03:55 04:00 WBC 13.5 H Hgb 7.2 L Hct 21.9 L Plt Count 98 L Sodium 130 L Potassium 4.3 Chloride 102 Carbon Dioxide 24 BUN 52 H Creatinine 0.84 Glucose 156 H Calcium 8.2 L Magnesium 2.4 - Imaging Chest Xray: image reviewed Consult Discharge Plan - Plan Referrals: Maia Barksdale CNP [Primary Care Provider] -
[2018-04-24] MEDS: Pantoprazole 40 MG VIAL IVP SCH (08:50)
[2018-04-24] MEDS: Orphenadrine 60 MG/2 ML VIAL IVP SCH ×2 (08:51→20:49)
[2018-04-24] MEDS ORDERED: Furosemide 20 MG/2 ML VIAL IVP ONE (08:56)
[2018-04-24] MEDS ORDERED: Saliva Stimulant 100ml BOTTLE PO PRN (09:02)
--- NOTE | 2018-04-24 09:04 | General Surgery Progress Note ---
Date of Encounter: 04/24/18 Time of Encounter: 07:15 - Assessment and Plan (1) Esophageal cancer Current Visit: Yes Status: Acute Date of procedure: 04/21/18 Pre-op diagnosis: Esophageal cancer Post-op diagnosis: same Procedure: #1 transhiatal esophagectomy #2 jejunostomy Anesthesia: MIRYAM Surgeon: Дмитрий Lennon Was there an production assistant present: Yes Fountain Operator: Alli Kumar POD #3 as above, pathology pending. She is noted to have had some difficulty with pain control for which scheduled Ofirmev, lidocaine, and Dilaudid OSTEOLOGIST which have seemed to help, but she still complains of back pain and spasm. Over the weekend she was also noted to have an increase in EL output, continuously draining blood, thoracic surgery came in evaluated the patient and ordered a chest CTA. Showed bilateral hemothorax sees. Bilateral chest tubes replaced by Dr. Bennett (500 cc blood out left, 450cc blood from right), EL drain stopped draining. Her hgb remained stable, but has decreased to 7.2 today. Her VSS and she is afebrile. she is requesting to get OOB. Plan: Continue NPO (expect prolonged NPO, at least 1 week - anticipate earliest would be 04/28 pending clinical course) Continue NG to LIWS (DO NOT) reposition NG. Noted per bedside RN, Pt pulled NG out slightly 04/23/2018 from 30 cm to 25 cm. Currentl secured at 25 cm. Continue supportive care and discomfort management while awaiting return of bowel function Scheduled Ofirmev, lidocaine patches, Dilaudid OSTEOLOGIST Add scheduled muscle relaxants Continue GI and DVT prophylaxis (EPCDs only currently d/t decreased hgb and blood loss) Will Consult PT/OT for mobilization and d/c planning, after hgb is corrected. OK for pt to get OOB Transfuse 2U PRBCs for acute blood loss anemia and check iron studies May begin trickle feeds per J-tube today. PICC/TPN (total IVF fluid rate MIV +TPN titrate to TPN goal) prn antiemetics Qualifiers: Malignant neoplasm of esophagus location: unspecified location Qualified Code(s): C15.9 - Malignant neoplasm of esophagus, unspecified (2) Acute blood loss anemia Current Visit: Yes Status: Acute Noted hgb trending 9.0>>8.2>>7.2. Will transfuse 2U PRBCs now and also check iron studies. Suspect acute blood loss anemia on anemia of chronic disease. (3) DVT prophylaxis Current Visit: Yes Status: Acute EPCDs Hold heparin d/t acute blood loss anemia (4) Hemothorax, postoperative Current Visit: Yes Status: Acute Management per Thoracic surgery Noted left CT with aprox 250 ml output in 24 hours and Right with 690 ml output. (5) Acute kidney injury Current Visit: Yes Status: Acute Creatinine is normal today. Will transfuse 2 units PRBC. Continue to follow Subjective Patient reports: feels better, still having pain, pain is less, voiding w/o difficulty (per silva), no flatus, no bowel movement, afebrile Narrative: Denies n/v. states she has back pain and would like to get out o bed. Objective Vital Signs - Last 8 Hours Temp Pulse Resp BP Pulse Ox 04/24/18 08:13 98.3 F 04/24/18 08:00 91 18 104/55 96 04/24/18 07:00 101 20 117/73 99 04/24/18 06:00 99 18 130/71 99 04/24/18 05:00 109 18 108/64 99 04/24/18 04:06 18 100 04/24/18 04:00 99 16 119/69 100 04/24/18 03:59 98.8 F 04/24/18 03:00 93 04/24/18 02:00 97 16 103/58 99 04/24/18 01:00 93 16 102/48 100 Intake and Output 04/23/18 04/24/18 04/24/18 23:59 07:59 15:59 Intake Total 100 / 100 200 / 200 Output Total 895 / 895 325 / 325 308 / 308 Balance -795 / -795 -125 / -125 -308 / -308 Intake: IV Fluids 100 / 100 200 / 200 Ofirmev 1,000 mg/100 ml 1,000 100 / 100 200 / 200 mg In 100 ml @ 400 mls/hr IVPB Q6H [facility] Rx#:[id number] Output: Catheter 575 / 575 200 / 200 275 / 275 Gastric Drainage 50 / 50 Wound Drainage / 5 3 / 3 Left Neck 3 / 3 Chest Tube Drainage 260 / 260 120 / 120 30 / 30 Left Mid-Axillary Chest 80 / 80 50 / 50 Right Mid-Axillary Chest 180 / 180 70 / 70 30 / 30 Other: Weight 84 kg Blood Glucose* 160 Patient Weight 04/24/18 23:59 Weight 84 kg - General physical appearance no distress, moderate pain, other - Eyes normal ocular movement - ENT atraumatic, normocephalic - Neck Neck exam: trachea midline, other (EL drain site WNL, Incisions CDI) - Respiratory other (decreased course breath sounds) - Cardiovascular Cardiovascular exam: Present: RRR - Abdomen Abdomen: Present: soft, tender (expected postoperative). Absent: bowel sounds present - Incision Incision: Present: clean and dry, intact - Integumentary no rash - Neurologic normal sensation - Psychiatric oriented to time, oriented to person, oriented to place, speech is normal - Labs 04/24/18 03:55 04/24/18 04:00 Diabetes panel 04/24/18 Range/Units 04:00 Sodium 130 L (136-145) mEq/L Potassium 4.3 (3.5-5.1) mEq/L Chloride 102 (98-107) mEq/L Carbon Dioxide 24 (23-29) mEq/L BUN 52 H (8-23) mg/dL Creatinine 0.84 (0.60-1.20) mg/dL Glucose 156 H (70-105) mg/dL Calcium 8.2 L (8.6-10.3) mg/dL Calcium panel 04/24/18 Range/Units 04:00 Calcium 8.2 L (8.6-10.3) mg/dL Phosphorus 3.5 (2.7-4.5) mg/dL Pituitary panel 04/24/18 Range/Units 04:00 Sodium 130 L (136-145) mEq/L Potassium 4.3 (3.5-5.1) mEq/L Chloride 102 (98-107) mEq/L Carbon Dioxide 24 (23-29) mEq/L BUN 52 H (8-23) mg/dL Creatinine 0.84 (0.60-1.20) mg/dL Glucose 156 H (70-105) mg/dL Calcium 8.2 L (8.6-10.3) mg/dL Adrenal panel 04/24/18 Range/Units 04:00 Sodium 130 L (136-145) mEq/L Potassium 4.3 (3.5-5.1) mEq/L Chloride 102 (98-107) mEq/L Carbon Dioxide 24 (23-29) mEq/L BUN 52 H (8-23) mg/dL Creatinine 0.84 (0.60-1.20) mg/dL Glucose 156 H (70-105) mg/dL Calcium 8.2 L (8.6-10.3) mg/dL Consult Discharge Plan - Plan Referrals: Maia Barksdale, [employer] [Primary Care Provider] -
[2018-04-24] MEDS: Phenylephrine 10 MG in D5% in Water 250 ML IVC SCH ×2 (09:06→19:29)
[2018-04-24 09:12] LABS: Iron < 10 mcg/dL (50-170); Transferrin 93 mg/dL (203-362)
[2018-04-24] MEDS ORDERED: 0.9 % Sodium Chloride 250 ML ONE ×2 (10:45→15:14)
[2018-04-24] MEDS ORDERED: D10% in Water 500 ML IVC PRN (11:34)
[2018-04-24] MEDS ORDERED: Naloxone 0.4 MG/ML INJ IVP PRN (12:57)
[2018-04-24] MEDS ORDERED: *HR* HYDROmorphone 20 MG/20 ML PCA IVC PRN (12:57)
[2018-04-24] MEDS: Iron Sucrose Complex 250 MG in 0.9 % Sodium Chloride 250 ML IVPB SCH (13:44)
[2018-04-24] MEDS: 0.9 % Sodium Chloride 1,000 ML IVC SCH (16:27)
--- NOTE | 2018-04-24 16:29 | Electrocardiograph Report ---
[place] [id number] Test Date: 2018-04-21 Pat Name: Dawn Lobo Department: 109 Room: [facility] Gender: F Mac Developer: : [id number] Requested By: Дмитрий Lennon Order Number: [id number] Reading MD: Deana Nino Measurements Intervals Downs Rate: 67 P: 21 CT: 164 QRS: -33 QRSD: 91 T: -25 QT: 457 QTc: 483 Interpretive Statements SINUS RHYTHM LEFT AXIS DEVIATION PROLONGED QT INTERVAL NONSPECIFIC T-WAVE ABNORMALITY Electronically Signed On 04-24-2018 16:28:28 EST by Deana Nino
[2018-04-24] MEDS ORDERED: Clinimix E 5%-15% SOLUTION 2,000 ML with MVI, adult with vitamin K 10 ML IVC SCH (17:00)
[2018-04-24] MEDS: Clinimix E 5%-15% SOLUTION 2,000 ML with MVI, adult with vitamin K 10 ML IVC SCH (17:58)
[2018-04-25 01:35] LABS: Hematocrit 29.3 % (35.3-44.9); Hemoglobin 9.7 g/dL (11.5-15.4)
[2018-04-25] MEDS: Ipratropium/Albuterol Neb 3 ML IH SCH ×4 (03:58→21:37)
[2018-04-25 04:34] LABS: Basophils # 0.1 K/mcL (0.0-0.2); Basophils % 0.4 %; Eosinophils % 0.1 %; Hematocrit 28.2 % (35.3-44.9); Hemoglobin 9.5 g/dL (11.5-15.4); Immature Granulocytes % 1.9 % (0-4); Lymphocytes # 0.5 K/mcL (0.6-4.6); Lymphocytes % 3.2 %; Mean Corpuscular HGB Conc 33.7 g/dL (31.6-35.5); Mean Corpuscular Hemoglobin 31.7 pg (28.0-33.3); Mean Platelet Volume 9.7 fL (9.4-12.4); Monocytes % 5.7 %; Neutrophils # 13.2 K/mcL (1.6-8.9); Nucleated Red Blood Cells 0.4 /100 WBC (0); Red Cell Distribution Width 15.9 % (11.5-14.5); Segmented Neutrophils % 88.7 %
[2018-04-25 04:35] LABS: Monocytes # 0.9 K/mcL (0.0-1.3); Platelet Count 89 K/mcL (140-400)
[2018-04-25 04:53] LABS: BUN/Creatinine Ratio 79 (6-26); Blood Urea Nitrogen 52 mg/dL (8-23); Calcium 8.2 mg/dL (8.6-10.3); Carbon Dioxide 23 mEq/L (23-29); Chloride 104 mEq/L (98-107); Glucose 137 mg/dL (70-105); Magnesium 2.1 mg/dL (1.6-2.6); Osmolality,Calculated 290 (280-300); Phosphorous 3.5 mg/dL (2.7-4.5); Potassium 4.9 mEq/L (3.5-5.1); Sodium 132 mEq/L (136-145); eGFR For Non-African Americans > 60 (> 60)
[2018-04-25] MEDS: Acetaminophen IV 1,000 MG/100 ML INFUS..BTL IVPB SCH ×4 (05:49→23:17)
[2018-04-25] MEDS: Orphenadrine 60 MG/2 ML VIAL IVP SCH ×2 (05:50→16:58)
[2018-04-25] MEDS: Insulin LISPRO 300 UNITS/3 ML VIAL SQ SCH ×4 (05:52→23:16)
[2018-04-25] MEDS ORDERED: 0.9 % Sodium Chloride 500 ML IVC ONE (07:35)
[2018-04-25] MEDS ORDERED: Piperacillin/Tazobactam 3.375 GM in Water for inj. (sterile) 20 ML 20 ML IVP ONE (07:36)
[2018-04-25] MEDS ORDERED: Piperacillin/Tazobactam 3.375 GM in 0.9 % Sodium Chloride Mini Bag 100 ML IVP ONE (08:20)
[2018-04-25] MEDS: Iron Sucrose Complex 250 MG in 0.9 % Sodium Chloride 250 ML IVPB SCH (08:26)
[2018-04-25] MEDS: Pantoprazole 40 MG VIAL IVP SCH (08:29)
--- NOTE | 2018-04-25 08:56 | General Surgery Progress Note ---
<AdamSowmya Morse - Last Filed: 04/25/18 08:46> Date of Encounter: 04/25/18 Time of Encounter: 07:15 - Assessment and Plan (1) Esophageal cancer Current Visit: Yes Status: Acute Date of procedure: 04/21/18 Pre-op diagnosis: Esophageal cancer Post-op diagnosis: same Procedure: #1 transhiatal esophagectomy #2 jejunostomy Anesthesia: GETA Surgeon: Дмитрий Lennon Was there an manufacturing assistant present: Yes Finger Cobbler: Alli Kumar POD #4 as above, pathology pending. Bedside RN reports that her NG tube had further dislodged from 25 cm to 20 cm. Notably the NG was secured with transport tape. The NG was easily manipulated within the tape. This DOBBY LOOM FIXER repositioned the NG tube to 25 cm and security NG tube using the following method: clean nose with alcohol allowed to dry. Apply Alkare skin prep allowed to dry. Apply Mastisol, allow to dry. Secure NG with appropriate NG tovar. Saftey pin NG to pillow or clothing. Her UOP and VSS are stable, but she does remain a little tachy and is -500ml total fluid balance this admission. Will bolus with 500 ml NS, then continue total fluid rate (MIV and TPN) at TPN goal. May continue IV at KVO for [employer]. She was transfused 2U PRBC for acute blood loss anemia and started on Venofer for chronic iron def anemia, with good results. Her hgb increased from 7.2 to 9.7, hct 21.9 to 29.3 and creatinine decreased from 1.27 to 0.84 to 0.66. Plan: Continue NPO (expect prolonged NPO, at least 1 week - anticipate earliest would be 04/28 pending clinical course) Continue NG to LIWS (DO NOT) reposition NG.Please ensure the NG is appropriately secured at 25 cm. Notify surgery if NG is dislodged. Continue supportive care and discomfort management while awaiting return of bowel function Scheduled Ofirmev, lidocaine patches, Dilaudid [employer] (demand only) for another 24 hours Continue scheduled muscle relaxants Continue GI and DVT prophylaxis EPCDs and will resume Heparin SQ BID Will Consult SW/PT/OT for mobilization and d/c planning OK for pt to get OOB Continue trickle feeds per J-tube today. Add 15 ml free water flushes Q4H PICC/TPN (total IVF fluid rate MIV +TPN titrate to TPN goal) prn antiemetics electrolyte protocol start iv Zosyn Q8H for pulmonary opacities Repeat am labs Continue to closely monitor in the ICU Qualifiers: Malignant neoplasm of esophagus location: unspecified location Qualified Code(s): C15.9 - Malignant neoplasm of esophagus, unspecified (2) Acute blood loss anemia Current Visit: Yes Status: Acute see assessment and plan above. Resolving. (3) Hemothorax, postoperative Current Visit: Yes Status: Acute Management per Thoracic surgery By basilar obesity's noted per CXR on 04/25/2017. We will add IV Zosyn Q8 hours and continue aggressive pulmonary toileting (4) Acute kidney injury Current Visit: Yes Status: Acute See assessment and plan above. Significant improved with transfusion and venofer (5) DVT prophylaxis Current Visit: Yes Status: Acute EPCDs Heparin 5000 uits SQ BID (6) Severe protein-calorie malnutrition Current Visit: Yes Status: Acute Continue TPN Nutrition following for TF and TPN Subjective Patient reports: no new complaints, feels better, pain is less, voiding w/o difficulty (PER [place]), no flatus, no bowel movement, afebrile Narrative: denies n/v, cp, or sob, states pain is well controlled. Bedside RN reports her NG has further dislodged from 25 to 20 cm. Objective Vital Signs - Last 8 Hours Temp Pulse Resp BP Pulse Ox 04/25/18 07:20 99.0 F 04/25/18 06:00 105 18 133/72 95 04/25/18 05:00 105 16 117/71 94 04/25/18 04:00 112 18 125/63 94 04/25/18 03:34 98.6 F 04/25/18 03:00 102 18 96/57 94 04/25/18 02:00 95 20 115/68 98 04/25/18 01:00 102 20 96/51 98 Intake and Output 04/24/18 04/25/18 04/25/18 23:59 07:59 15:59 Intake Total 1508 / 1508 264 / 264 Output Total 580 / 580 1036 / 1036 Balance 928 / 928 -772 / -772 Intake: IV Fluids 1100 / 1100 200 / 200 0.9 % Sodium Chloride 1,000 ML 1000 / 1000 @ 40 mls/hr IVC .Q24H [facility] Rx#: [id number] Ofirmev 1,000 mg/100 ml 1,000 100 / 100 200 / 200 mg In 100 ml @ 400 mls/hr IVPB Q6HR [facility] Rx#:[id number] Tube Feeding 58 / 58 64 / 64 Blood Product 350 / 350 Rbcs Leuko Poor As-1 Unit 350 / 350 [id number] Output: Catheter 350 / 350 625 / 625 Gastric Drainage 0 / 0 Wound Drainage 20 / 20 3 / 3 Left Neck 20 / 20 3 / 3 Chest Tube Drainage 210 / 210 408 / 408 Left Mid-Axillary Chest 30 / 30 70 / 70 Right Mid-Axillary Chest 180 / 180 338 / 338 Other: Weight 87.7 kg Blood Glucose* 142 155 Patient Weight 04/25/18 23:59 Weight 87.7 kg - General physical appearance no distress, no pain - Eyes normal ocular movement - ENT normal nares (NG secured left nares. See assessment and plan for further information) - Neck Neck exam: trachea midline, other (Left neck EL site within normal limits) - Respiratory other (Decreased course/rub breath sounds) - Cardiovascular Cardiovascular exam: Present: tachycardia, murmurs - Abdomen Abdomen: Present: soft, tender (Expected postoperative). Absent: bowel sounds present - Incision Incision: Present: clean and dry, intact (Neck and abdominal incisions are clean, dry, intact, and without signs of erythema, drainage, or warmth) - Integumentary no rash, other (Left lower extremity forearm is with ecchymosis and edema) - Neurologic normal sensation - Musculoskeletal normal posture - Psychiatric oriented to time, oriented to person, oriented to place - Labs 04/25/18 04:20 04/25/18 04:20 Diabetes panel 04/24/18 04/25/18 Range/Units 04:00 04:20 Sodium 130 L 132 L (136-145) mEq/L Potassium 4.3 4.9 (3.5-5.1) mEq/L Chloride 102 104 (98-107) mEq/L Carbon Dioxide 24 23 (23-29) mEq/L BUN 52 H 52 H (8-23) mg/dL Creatinine 0.84 0.66 (0.60-1.20) mg/dL Glucose 156 H 137 H (70-105) mg/dL Calcium 8.2 L 8.2 L (8.6-10.3) mg/dL Calcium panel 04/24/18 04/25/18 Range/Units 04:00 04:20 Calcium 8.2 L 8.2 L (8.6-10.3) mg/dL Phosphorus 3.5 3.5 (2.7-4.5) mg/dL Pituitary panel 04/24/18 04/25/18 Range/Units 04:00 04:20 Sodium 130 L 132 L (136-145) mEq/L Potassium 4.3 4.9 (3.5-5.1) mEq/L Chloride 102 104 (98-107) mEq/L Carbon Dioxide 24 23 (23-29) mEq/L BUN 52 H 52 H (8-23) mg/dL Creatinine 0.84 0.66 (0.60-1.20) mg/dL Glucose 156 H 137 H (70-105) mg/dL Calcium 8.2 L 8.2 L (8.6-10.3) mg/dL Adrenal panel 04/24/18 04/25/18 Range/Units 04:00 04:20 Sodium 130 L 132 L (136-145) mEq/L Potassium 4.3 4.9 (3.5-5.1) mEq/L Chloride 102 104 (98-107) mEq/L Carbon Dioxide 24 23 (23-29) mEq/L BUN 52 H 52 H (8-23) mg/dL Creatinine 0.84 0.66 (0.60-1.20) mg/dL Glucose 156 H 137 H (70-105) mg/dL Calcium 8.2 L 8.2 L (8.6-10.3) mg/dL Consult Discharge Plan - Plan Referrals: Maia Barksdale, MANAGER [employer] [employer] [Primary Care Provider] - <Дмитрий Lennon - Last Filed: 04/25/18 13:17> Date of Encounter: 04/25/18 Objective Vital Signs - Last 8 Hours Temp Pulse Resp BP Pulse Ox 04/25/18 13:00 97.7 F 04/25/18 11:00 113 16 152/88 100 04/25/18 10:00 109 18 138/73 94 04/25/18 09:00 110 18 130/72 96 04/25/18 08:00 90 16 144/66 93 04/25/18 07:20 99.0 F 04/25/18 07:00 97 16 123/64 93 04/25/18 06:00 105 18 133/72 95 Intake and Output 04/24/18 04/25/18 04/25/18 23:59 07:59 15:59 Intake Total 1508 / 1508 264 / 264 377.5 / 377.5 Output Total 580 / 580 1036 / 1036 471 / 471 Balance 928 / 928 -772 / -772 -93.5 / -93.5 Intake: IV Fluids 1100 / 1100 200 / 200 362.5 / 362.5 0.9 % Sodium Chloride 1,000 ML 1000 / 1000 @ 40 mls/hr IVC .Q24H [facility] Rx#: [id number] Ofirmev 1,000 mg/100 ml 1,000 100 / 100 200 / 200 100 / 100 mg In 100 ml @ 400 mls/hr IVPB Q6HR [facility] Rx#:[id number] Venofer 250 MG In 0.9 % Sodium 262.5 / 262.5 Chloride 250 ML @ 130 mls/hr IVPB DAILY [facility] Rx#:[id number] Tube Feeding 58 / 58 64 / 64 Blood Product 350 / 350 Rbcs Leuko Poor As-1 Unit 350 / 350 [id number] Free Water Intake Amount 15 Output: Catheter 350 / 350 625 / 625 375 / 375 Gastric Drainage 0 / 0 Wound Drainage / 3 / 3 0 / 0 Left Neck 3 / 3 0 / 0 Chest Tube Drainage 210 / 210 408 / 408 96 / 96 Left Mid-Axillary Chest 30 / 30 70 / 70 0 / 0 Right Mid-Axillary Chest 180 / 180 338 / 338 96 / 96 Other: Weight 87.7 kg 87.7 kg Blood Glucose* 142 155 132 Patient Weight 04/25/18 23:59 Weight 87.7 kg - Labs 04/25/18 04:20 04/25/18 04:20 Diabetes panel 04/25/18 Range/Units 04:20 Sodium 132 L (136-145) mEq/L Potassium 4.9 (3.5-5.1) mEq/L Chloride 104 (98-107) mEq/L Carbon Dioxide 23 (23-29) mEq/L BUN 52 H (8-23) mg/dL Creatinine 0.66 (0.60-1.20) mg/dL Glucose 137 H (70-105) mg/dL Calcium 8.2 L (8.6-10.3) mg/dL Calcium panel 04/25/18 Range/Units 04:20 Calcium 8.2 L (8.6-10.3) mg/dL Phosphorus 3.5 (2.7-4.5) mg/dL Pituitary panel 04/25/18 Range/Units 04:20 Sodium 132 L (136-145) mEq/L Potassium 4.9 (3.5-5.1) mEq/L Chloride 104 (98-107) mEq/L Carbon Dioxide 23 (23-29) mEq/L BUN 52 H (8-23) mg/dL Creatinine 0.66 (0.60-1.20) mg/dL Glucose 137 H (70-105) mg/dL Calcium 8.2 L (8.6-10.3) mg/dL Adrenal panel 04/25/18 Range/Units 04:20 Sodium 132 L (136-145) mEq/L Potassium 4.9 (3.5-5.1) mEq/L Chloride 104 (98-107) mEq/L Carbon Dioxide 23 (23-29) mEq/L BUN 52 H (8-23) mg/dL Creatinine 0.66 (0.60-1.20) mg/dL Glucose 137 H (70-105) mg/dL Calcium 8.2 L (8.6-10.3) mg/dL - Attending Attestation The patient is seen and evaluated on morning rounds with the clinical nurse practitioner. Her pain is under much better control today. The nasogastric tube drainage has dropped off however the nasogastric tube has pulled back. This will be repositioned at 25 cm. The chest x-ray is reviewed. She has some mild opacification of the right lung. Her white blood cell count was slightly elevated at 14,000. Based on this we will start antibiotic therapy. The left chest tube drainage is serosanguineous and dropping off. Incisions are clean and dry. There is no bilious or salivary drainage in the Thomas-Stratton drain in the neck area patient is doing quite well. Continue trickle feeds via jejunostomy. Continue TPN Дмитрий Lennon MD FACS
--- NOTE | 2018-04-25 11:05 | Cardiothoracic Progress Note ---
Date of Encounter: 04/25/18 Time of Encounter: 11:05 - Assessment and plan (1) Esophageal cancer Current Visit: Yes Status: Acute The assessment and plan as outlined above was discussed with the patient and/or family members who expressed understanding and agreement. All questions were answered. could remove a line today. enteral feeds to start tomorrow. Qualifiers: Malignant neoplasm of esophagus location: unspecified location Qualified Code(s): C15.9 - Malignant neoplasm of esophagus, unspecified (2) Hemothorax, postoperative Current Visit: Yes Status: Acute The assessment and plan as outlined above was discussed with the patient and/or family members who expressed understanding and agreement. All questions were a nswered. chest xray reviewed. continue chest tubes to suction . - Subjective Interval history: stable over night. Vital Signs, Last 4 Hours Temp Pulse Resp BP Pulse Ox 04/25/18 09:00 110 18 130/72 96 04/25/18 08:00 90 16 144/66 93 04/25/18 07:20 99.0 F Oxgyen Flow Rate Oxygen Flow Rate (LPM) 2 Clinical Data, last 8 Hours Output, Chest Tube Drainage 23 Amount [Right Mid-Axillary Chest] Output, Chest Tube Drainage 75 Amount [Right Mid-Axillary Chest] Output, Chest Tube Drainage 20 Amount [Left Mid-Axillary Chest] Output, Chest Tube Drainage 40 Amount [Left Mid-Axillary Chest] Weight 04/23/18 04/24/18 04/25/18 23:59 23:59 23:59 Weight 83.2 kg 84 kg 87.7 kg - Physical Examination General: Conversant HEENT: Atraumatic Cardiac: Reg Rate and Rhythm, Normal S1 and S2 Chest tubes: Other (thin serosanguinous chest tube drainage) Lungs: Normal Breath Sounds Neuro: Alert and responsive, No focal deficits noted, Cranial nerves intact - Labs 04/25/18 04:20 04/25/18 04:20 Lab Results, Last 24 hours 04/25/18 04/25/18 04/25/18 01:28 04:20 04:20 WBC 14.9 H Hgb 9.7 L D 9.5 L Hct 29.3 L 28.2 L Plt Count 89 L Sodium 132 L Potassium 4.9 Chloride 104 Carbon Dioxide 23 BUN 52 H Creatinine 0.66 Glucose 137 H Calcium 8.2 L Magnesium 2.1 Consult Discharge Plan - Plan Referrals: Maia Barksdale, FADIA [Primary Care Provider] -
[2018-04-25] MEDS: Vasopressin 40 UNIT in D5% in Water 100 ML IV SCH (15:59)
[2018-04-25] MEDS: 0.9 % Sodium Chloride 1,000 ML IVC SCH (16:59)
[2018-04-25] MEDS ORDERED: Clinimix E 5%-15% SOLUTION 2,000 ML with MVI, adult with vitamin K 10 ML IVC SCH (17:00)
[2018-04-25] MEDS: Phenylephrine 10 MG in D5% in Water 250 ML IVC SCH (19:28)
[2018-04-26] MEDS: Ipratropium/Albuterol Neb 3 ML IH SCH ×4 (03:12→21:47)
[2018-04-26 03:30] LABS: Basophils # 0.1 K/mcL (0.0-0.2); Basophils % 0.6 %; Eosinophils # 0.1 K/mcL (0.0-0.6); Eosinophils % 0.5 %; Hematocrit 28.4 % (35.3-44.9); Hemoglobin 9.2 g/dL (11.5-15.4); Immature Granulocytes % 8.3 % (0-4); Lymphocytes # 0.4 K/mcL (0.6-4.6); Lymphocytes % 3.1 %; Mean Corpuscular HGB Conc 32.4 g/dL (31.6-35.5); Mean Corpuscular Hemoglobin 31.4 pg (28.0-33.3); Mean Corpuscular Volume 96.9 fL (83.0-100.0); Mean Platelet Volume 9.9 fL (9.4-12.4); Monocytes # 0.8 K/mcL (0.0-1.3); Monocytes % 6.1 %; Neutrophils # 10.3 K/mcL (1.6-8.9); Nucleated Red Blood Cells 0.5 /100 WBC (0); Red Blood Count 2.93 M/mcL (3.82-4.97); Segmented Neutrophils % 81.4 %
[2018-04-26 03:31] LABS: Platelet Count 75 K/mcL (140-400)
[2018-04-26 03:50] LABS: Magnesium 1.7 mg/dL (1.6-2.6); Phosphorous 2.9 mg/dL (2.7-4.5)
[2018-04-26 04:14] LABS: Platelet Estimate Slight Decrease (Normal)
[2018-04-26] MEDS: Acetaminophen IV 1,000 MG/100 ML INFUS..BTL IVPB SCH ×4 (05:11→23:16)
[2018-04-26] MEDS: Orphenadrine 60 MG/2 ML VIAL IVP SCH ×2 (05:12→17:58)
[2018-04-26] MEDS: Insulin LISPRO 300 UNITS/3 ML VIAL SQ SCH ×4 (05:14→23:17)
--- NOTE | 2018-04-26 06:57 | Cardiothoracic Progress Note ---
Date of Encounter: 04/26/18 Time of Encounter: 06:55 - Assessment and plan (1) Hemothorax on right Current Visit: Yes Status: Acute The patient remained hemodynamically stable overnight. Chest tube drainage is decreasing. Chest x-ray shows a small left pleural effusion. Chest tube will remain in place until the the drainage has stopped. The chest tube should remain on suction. The assessment and plan as outlined above was discussed with the patient and/or family members who expressed understanding and agreement. All questions were answered. - Subjective Interval history: The patient remained hemodynamically stable overnight. She is resting comfortably in her hospital bed and breathing comfortably. She has no complaints. Vital Signs, Last 4 Hours Temp Pulse Resp BP Pulse Ox 04/26/18 06:00 99 16 112/82 94 04/26/18 05:00 109 18 130/78 95 04/26/18 04:00 106 16 142/77 93 04/26/18 03:13 18 94 04/26/18 03:00 99.3 F 108 16 134/79 94 Oxgyen Flow Rate Oxygen Flow Rate (LPM) 2 Clinical Data, last 8 Hours Output, Chest Tube Drainage 70 Amount [Right Mid-Axillary Chest] Output, Chest Tube Drainage 70 Amount [Right Mid-Axillary Chest] Output, Chest Tube Drainage 50 Amount [Left Mid-Axillary Chest] Output, Chest Tube Drainage 80 Amount [Left Mid-Axillary Chest] Weight 04/24/18 04/25/18 04/26/18 23:59 23:59 23:59 Weight 84 kg 87.7 kg 88.1 kg - Physical Examination General: Conversant, No Apparent Distress Neck: No JVD, Normal carotid pulses Cardiac: Reg Rate and Rhythm, Normal S1 and S2, No Murmur Incision: No signs of infection, Dry/intact dressing Chest tubes: Minimal drainage, Other (No air leak) Lungs: Normal Breath Sounds, No Wheeze, Rales, Rhonchi Neuro: Alert and responsive, No focal deficits noted Vascular: Normal capillary refill Extremities: No Clubbing, No Cyanosis, No Edema - Labs 04/26/18 03:21 04/25/18 04:20 Lab Results, Last 24 hours 04/26/18 04/26/18 03:21 03:21 WBC 12.7 H Hgb 9.2 L Hct 28.4 L Plt Count 75 L Magnesium 1.7 - Imaging Chest Xray: image reviewed (No pneumothorax. Persistent bilateral pulmonary opacities consistent with atelectasis. Small left pleural effusion.) Consult Discharge Plan - Plan Referrals: Maia Barksdale CNP [Primary Care Provider] -
[2018-04-26] MEDS ORDERED: *HR* Alteplase (Cathflo) 2 MG VIAL IVP ONE ×2 (07:22→16:29)
[2018-04-26] MEDS: Pantoprazole 40 MG VIAL IVP SCH (07:57)
[2018-04-26] MEDS: Piperacillin/Tazobactam 3.375 GM in 0.9 % Sodium Chloride Mini Bag 100 ML IVPB SCH ×3 (07:57→23:17)
--- NOTE | 2018-04-26 08:03 | General Surgery Progress Note ---
Date of Encounter: 04/26/18 Time of Encounter: 07:00 - Assessment and Plan (1) Acute blood loss anemia Current Visit: Yes Status: Acute The patient received transfusion for acute blood loss anemia associated with surgery. Her low hematocrit was 21.9%. After transfusion she was 29.7%. This helped resolve her tachycardia. (2) Severe protein-calorie malnutrition Current Visit: Yes Status: Acute The patient currently has trickle feeds going through a jejunostomy inadequate for 24-hour caloric support and nutritional needs. She is also receiving total parenteral nutrition via PICC line. (3) Esophageal cancer Current Visit: Yes Status: Acute The patient had successful transhiatal esophagectomy. Postoperative complications included bilateral pleural effusions. This is been managed with chest tube placement and the patient is doing well. The proximal anastomosis appears intact on physical examination, we will plan on Gastrografin swallow tomorrow. Pathology is pending. Qualifiers: Malignant neoplasm of esophagus location: middle third Qualified Code(s): 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 Subjective Narrative: Patient seen and evaluated on morning rounds the patient is much improved compared to yesterday. She has much less pain. The chest tube drainage has dropped on both sides. The Thomas-Stratton drain demonstrates serosanguineous drainage less than 5 mL with no foaming and no biliary staining. Nasogastric tube was placed with very low volume nasogastric drainage. The jejunostomy tube is functioning normally. She does not really have much in way bowel sounds and has had no flatus or bowel movement midline incision is intact she has no complaints and we will work on getting her up to the chair today Objective Vital Signs - Last 8 Hours Temp Pulse Resp BP Pulse Ox 04/26/18 06:00 99 16 112/82 94 04/26/18 05:00 109 18 130/78 95 04/26/18 04:00 106 16 142/77 93 04/26/18 03:13 18 94 04/26/18 03:00 99.3 F 108 16 134/79 94 04/26/18 02:00 105 16 123/68 93 04/26/18 01:00 100 14 119/70 93 Intake and Output 04/25/18 04/26/18 04/26/18 23:59 07:59 15:59 Intake Total 1619 / 1619 228 / 228 Output Total 1311 / 1311 570 / 570 Balance 308 / 308 -342 / -342 Intake: IV Fluids 1200 / 1200 100 / 100 0.9 % Sodium Chloride 1,000 ML 1000 / 1000 @ 40 mls/hr IVC .Q24H [facility] Rx#: [id number] Ofirmev 1,000 mg/100 ml 1,000 200 / 200 100 / 100 mg In 100 ml @ 400 mls/hr IVPB Q6HR [facility] Rx#:[id number] Tube Feeding 404 / 404 98 / 98 Free Water 15 / 15 Free Water Intake Amount 30 / 30 Output: Catheter 900 / 900 450 / 450 Gastric Drainage 0 / 0 Wound Drainage 1 / 0 / 0 Left Neck 1 / 0 / 0 Chest Tube Drainage 410 / 410 120 / 120 Left Mid-Axillary Chest 190 / 190 50 / 50 Right Mid-Axillary Chest 220 / 220 70 / 70 Other: Weight 88.1 kg Patient Weight 04/26/18 23:59 Weight 88.1 kg - General physical appearance no pain - Respiratory normal expansion, normal respiratory effort, clear to percussion, clear to auscultation - Cardiovascular Cardiovascular exam: Present: RRR, no murmurs/rubs/gallops - Abdomen Abdomen: Present: soft, non tender (No bowel sounds jejunostomy tube intact and functioning) - Incision Incision: Present: clean and dry - Neurologic normal coordination, normal sensation - Psychiatric oriented to time, oriented to person, oriented to place, speech is normal, memory intact - Labs 04/26/18 03:21 04/25/18 04:20 Calcium panel 04/26/18 Range/Units 03:21 Phosphorus 2.9 (2.7-4.5) mg/dL - Imaging Chest x-ray: image reviewed (Opacification of the right lung is much improved chest tubes were in place costophrenic angles are clear) Consult Discharge Plan - Plan Referrals: Maia Barksdale, B[employer]ER [Primary Care Provider] -
[2018-04-26 10:13] LABS: BUN/Creatinine Ratio 77 (6-26); Blood Urea Nitrogen 41 mg/dL (8-23); Calcium 8.7 mg/dL (8.6-10.3); Carbon Dioxide 26 mEq/L (23-29); Chloride 107 mEq/L (98-107); Glucose 144 mg/dL (70-105); Osmolality,Calculated 295 (280-300); Potassium 4.4 mEq/L (3.5-5.1); Sodium 136 mEq/L (136-145); eGFR For Non-African Americans > 60 (> 60)
[2018-04-26] MEDS: Iron Sucrose Complex 250 MG in 0.9 % Sodium Chloride 250 ML IVPB SCH (10:52)
[2018-04-26] MEDS: Vasopressin 40 UNIT in D5% in Water 100 ML IV SCH (13:23)
[2018-04-26] MEDS ORDERED: Clinimix E 5%-15% SOLUTION 2,000 ML with MVI, adult with vitamin K 10 ML IVC SCH (17:00)
[2018-04-26] MEDS: 0.9 % Sodium Chloride 1,000 ML IVC SCH (17:24)
[2018-04-26] MEDS: Phenylephrine 10 MG in D5% in Water 250 ML IVC SCH (21:54)
[2018-04-27 03:35] LABS: Mean Corpuscular HGB Conc 32.6 g/dL (31.6-35.5); Mean Corpuscular Hemoglobin 31.7 pg (28.0-33.3); Mean Corpuscular Volume 97.2 fL (83.0-100.0); Mean Platelet Volume 9.9 fL (9.4-12.4); Monocytes % 6.2 %; Nucleated Red Blood Cells 0.2 /100 WBC (0)
[2018-04-27 03:37] LABS: Basophils # 0.1 K/mcL (0.0-0.2); Basophils % 0.4 %; Eosinophils # 0.1 K/mcL (0.0-0.6); Eosinophils % 0.6 %; Hematocrit 27.6 % (35.3-44.9); Immature Granulocytes % 12.5 % (0-4); Lymphocytes # 0.4 K/mcL (0.6-4.6); Lymphocytes % 3.4 %; Monocytes # 0.8 K/mcL (0.0-1.3); Neutrophils # 9.6 K/mcL (1.6-8.9); Red Blood Count 2.84 M/mcL (3.82-4.97); Red Cell Distribution Width 15.7 % (11.5-14.5); Segmented Neutrophils % 76.9 %
[2018-04-27 03:48] LABS: Platelet Count 82 K/mcL (140-400)
[2018-04-27 03:53] LABS: BUN/Creatinine Ratio 63 (6-26); Blood Urea Nitrogen 32 mg/dL (8-23); Calcium 8.4 mg/dL (8.6-10.3); Carbon Dioxide 26 mEq/L (23-29); Chloride 108 mEq/L (98-107); Glucose 130 mg/dL (70-105); Osmolality,Calculated 295 (280-300); Potassium 4.2 mEq/L (3.5-5.1); Sodium 138 mEq/L (136-145); eGFR For Non-African Americans > 60 (> 60)
[2018-04-27 03:57] LABS: Magnesium 1.7 mg/dL (1.6-2.6); Phosphorous 3.2 mg/dL (2.7-4.5)
[2018-04-27] MEDS: Ipratropium/Albuterol Neb 3 ML IH SCH ×4 (04:07→21:47)
[2018-04-27] MEDS: Acetaminophen IV 1,000 MG/100 ML INFUS..BTL IVPB SCH ×3 (05:24→17:24)
[2018-04-27] MEDS: Orphenadrine 60 MG/2 ML VIAL IVP SCH (05:24)
[2018-04-27] MEDS: Insulin LISPRO 300 UNITS/3 ML VIAL SQ SCH ×3 (05:24→17:15)
--- NOTE | 2018-04-27 06:30 | Cardiothoracic Progress Note ---
Date of Encounter: 04/27/18 Time of Encounter: 06:24 - Assessment and plan (1) Hemothorax on right Current Visit: Yes Status: Acute The patient remained hemodynamically stable overnight. Chest tube drainage is decreasing. The chest tubes will remain in place until the the drainage has stopped. The chest tubes should remain on suction. The assessment and plan as outlined above was discussed with the patient and/or family members who expressed understanding and agreement. All questions were answered. - Subjective Interval history: The patient remained hemodynamically stable overnight. She is resting com fortably in her hospital bed and breathing comfortably. She has no complaints. Vital Signs, Last 4 Hours Temp Pulse Resp BP Pulse Ox 04/27/18 06:00 99 14 97/45 98 04/27/18 05:00 106 14 116/76 96 04/27/18 04:07 14 96 04/27/18 04:00 97.1 F L 112 16 119/59 100 04/27/18 03:00 106 18 112/83 96 Oxgyen Flow Rate Oxygen Flow Rate (LPM) 3 Clinical Data, last 8 Hours Output, Chest Tube Drainage 60 Amount [Right Mid-Axillary Chest] Output, Chest Tube Drainage 50 Amount [Right Mid-Axillary Chest] Output, Chest Tube Drainage 40 Amount [Left Mid-Axillary Chest] Output, Chest Tube Drainage 70 Amount [Left Mid-Axillary Chest] Weight 04/25/18 04/26/18 04/27/18 23:59 23:59 23:59 Weight 87.7 kg 80.3 kg 88.9 kg - Physical Examination General: Conversant, No Apparent Distress Neck: No JVD, Normal carotid pulses Cardiac: Reg Rate and Rhythm, Normal S1 and S2, No Murmur Incision: No signs of infection, Dry/intact dressing Chest tubes: Minimal drainage, Other (No air leak) Lungs: Normal Breath Sounds, No Wheeze, Rales, Rhonchi Neuro: Alert and responsive, No focal deficits noted Vascular: Normal capillary refill Extremities: No Clubbing, No Cyanosis, No Edema - Labs 04/27/18 03:18 04/27/18 03:18 Lab Results, Last 24 hours 04/26/18 04/27/18 04/27/18 09:45 03:18 03:18 WBC 12.5 H Hgb 9.0 L Hct 27.6 L Plt Count 82 L Sodium 136 Potassium 4.4 Chloride 107 Carbon Dioxide 26 BUN 41 H Creatinine 0.53 L Glucose 144 H Calcium 8.7 Magnesium 1.7 04/27/18 03:18 WBC Hgb Hct Plt Count Sodium 138 Potassium 4.2 Chloride 108 H Carbon Dioxide 26 BUN 32 H Creatinine 0.51 L Glucose 130 H Calcium 8.4 L Magnesium Consult Discharge Plan - Plan Referrals: Maia Barksdale, GEOPHYSICAL SUPPORT SPECIALIST [Primary Care Provider] -
[2018-04-27] MEDS: Pantoprazole 40 MG VIAL IVP SCH (08:14)
[2018-04-27] MEDS: Iron Sucrose Complex 250 MG in 0.9 % Sodium Chloride 250 ML IVPB SCH (08:14)
[2018-04-27] MEDS: Piperacillin/Tazobactam 3.375 GM in 0.9 % Sodium Chloride Mini Bag 100 ML IVPB SCH ×2 (08:14→17:14)
--- NOTE | 2018-04-27 08:37 | General Surgery Progress Note ---
<AdamSowmya Morse - Last Filed: 04/27/18 08:35> Date of Encounter: 04/27/18 Time of Encounter: 07:30 - Assessment and Plan (1) Esophageal cancer Current Visit: Yes Status: Acute Date of procedure: 04/21/18 Pre-op diagnosis: Esophageal cancer Post-op diagnosis: same Procedure: #1 transhiatal esophagectomy #2 jejunostomy Anesthesia: GETA Surgeon: Дмитрий Lennon Was there an minister assistant present: Yes Hydraulic Chair Assembler: Alli Kumar POD #6 as above, pathology pending. NG tube accidental removal per patient 04/26 Her UOP and VSS are stable, but she does remain a little tachy and is -500ml total fluid balance this admission. Will bolus with 500 ml NS, then continue total fluid rate (MIV and TPN) at TPN goal. May continue IV at KVO for FLANGER. She was transfused 2U PRBC for acute blood loss anemia and started on Venofer for chronic iron def anemia, with good results. Hgb stable. No evidence of bleeding Noted per Dr. Starr, MCKENNA CTs to remain until drainage has stopped Plan: UGI with gastrograffin today Continue supportive care and discomfort management while awaiting return of bowel function Scheduled Ofirmev, lidocaine patches, Stop Dilaudid FLANGER Change Orpehnadrine to PRN Continue GI and DVT prophylaxis EPCDs and will resume Heparin SQ BID Continue PICC and TPN until adequate TF. 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 Resolving. (3) Hemothorax, postoperative Current Visit: Yes Status: Acute Management per Thoracic surgery (4) Acute kidney injury Current Visit: Yes Status: Resolved See assessment and plan above. (5) DVT prophylaxis Current Visit: Yes Status: Acute EPCDs Heparin 5000 uits SQ BID (6) Severe protein-calorie malnutrition Current Visit: Yes Status: Acute Continue TPN Nutrition following for TF and TPN Subjective Patient reports: no new complaints, feels better, still having pain, pain is less, voiding w/o difficulty, no flatus, no bowel movement, afebrile Narrative: Bedside RN reports difficulty with PICC clogging. She did try out pace twice yesterday. Objective Vital Signs - Last 8 Hours Temp Pulse Resp BP Pulse Ox 04/27/18 06:00 99 14 97/45 98 04/27/18 05:00 106 14 116/76 96 04/27/18 04:07 14 96 04/27/18 04:00 97.1 F L 112 16 119/59 100 04/27/18 03:00 106 18 112/83 96 04/27/18 02:00 105 14 133/90 97 04/27/18 01:00 110 16 140/63 99 Intake and Output 04/26/18 04/27/18 04/27/18 23:59 07:59 15:59 Intake Total 1245 / 1245 215 / 215 100 / 100 Output Total 915 / 915 810 / 810 Balance 330 / 330 -595 / -595 100 / 100 Intake: IV Fluids 1200 / 1200 200 / 200 100 / 100 0.9 % Sodium Chloride 1,000 ML 1000 / 1000 @ 40 mls/hr IVC .Q24H [facility] Rx#: [id number] Ofirmev 1,000 mg/100 ml 1,000 100 / 100 100 / 100 100 / 100 mg In 100 ml @ 400 mls/hr IVPB Q6HR [facility] Rx#:[id number] Zosyn 3.375 GM In 0.9 % Sodium 100 / 100 100 / 100 Chloride (Mini-Bag +) 100 ML @ 25 mls/hr IVPB Q8HR [facility] Rx#: [id number] Free Water Intake Amount 45 / 45 15 / 15 Output: Catheter 625 / 625 575 / 575 Gastric Drainage 0 / 0 0 / 0 Wound Drainage 0 / 0 15 / 15 Left Neck 0 / 0 15 / 15 Chest Tube Drainage 290 / 290 220 / 220 Left Mid-Axillary Chest 160 / 160 110 / 110 Right Mid-Axillary Chest 130 / 130 110 / 110 Other: Weight 88.9 kg Blood Glucose* 113 Patient Weight 04/27/18 23:59 Weight 88.9 kg - General physical appearance no distress, no pain - Eyes normal ocular movement - ENT normal nares, normal mucosa, dentures, atraumatic, normocephalic - Neck Neck exam: trachea midline - Respiratory other (clear, rubbing breath sounds) - Cardiovascular Cardiovascular exam: Present: RRR - Abdomen Abdomen: Present: bowel sounds present (hypoactive), soft, tender (expected postoperative) Hernia: none - Incision Incision: Present: clean and dry, intact - Integumentary no rash, other (Ecchymosis to left forearm remains) - Neurologic normal sensation - Musculoskeletal normal posture - Psychiatric oriented to time, oriented to person, oriented to place - Labs 04/27/18 03:18 04/27/18 03:18 Diabetes panel 04/26/18 04/27/18 Range/Units 09:45 03:18 Sodium 136 138 (136-145) mEq/L Potassium 4.4 4.2 (3.5-5.1) mEq/L Chloride 107 108 H (98-107) mEq/L Carbon Dioxide 26 26 (23-29) mEq/L BUN 41 H 32 H (8-23) mg/dL Creatinine 0.53 L 0.51 L (0.60-1.20) mg/dL Glucose 144 H 130 H (70-105) mg/dL Calcium 8.7 8.4 L (8.6-10.3) mg/dL Calcium panel 04/26/18 04/27/18 04/27/18 Range/Units 09:45 03:18 03:18 Calcium 8.7 8.4 L (8.6-10.3) mg/dL Phosphorus 3.2 (2.7-4.5) mg/dL Pituitary panel 04/26/18 04/27/18 Range/Units 09:45 03:18 Sodium 136 138 (136-145) mEq/L Potassium 4.4 4.2 (3.5-5.1) mEq/L Chloride 107 108 H (98-107) mEq/L Carbon Dioxide 26 26 (23-29) mEq/L BUN 41 H 32 H (8-23) mg/dL Creatinine 0.53 L 0.51 L (0.60-1.20) mg/dL Glucose 144 H 130 H (70-105) mg/dL Calcium 8.7 8.4 L (8.6-10.3) mg/dL Adrenal panel 04/26/18 04/27/18 Range/Units 09:45 03:18 Sodium 136 138 (136-145) mEq/L Potassium 4.4 4.2 (3.5-5.1) mEq/L Chloride 107 108 H (98-107) mEq/L Carbon Dioxide 26 26 (23-29) mEq/L BUN 41 H 32 H (8-23) mg/dL Creatinine 0.53 L 0.51 L (0.60-1.20) mg/dL Glucose 144 H 130 H (70-105) mg/dL Calcium 8.7 8.4 L (8.6-10.3) mg/dL Consult Discharge Plan - Plan Referrals: Maia Barksdale, CALL CENTER COORDINATOR [Primary Care Provider] - <Дмитрий Lennon - Last Filed: 04/27/18 15:30> Date of Encounter: 04/27/18 - Assessment and Plan (1) Acute blood loss anemia Current Visit: Yes Status: Acute (2) Severe protein-calorie malnutrition Current Visit: Yes Status: Acute (3) Esophageal cancer Current Visit: Yes Status: Acute Qualifiers: Malignant neoplasm of esophagus location: middle third Qualified Code(s): 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 Objective Vital Signs - Last 8 Hours Temp Pulse Resp BP Pulse Ox 04/27/18 12:04 14 91 04/27/18 12:00 98.3 F 04/27/18 11:00 112 14 120/76 91 04/27/18 09:00 105 14 127/67 92 04/27/18 08:00 98.9 F 99 14 119/63 96 Intake and Output 04/26/18 04/27/18 04/27/18 23:59 07:59 15:59 Intake Total 1245 / 1245 230 / 230 615 / 615 Output Total 915 / 915 810 / 810 890 / 890 Balance 330 / 330 -580 / -580 -275 / -275 Intake: IV Fluids 1200 / 1200 200 / 200 600 / 600 0.9 % Sodium Chloride 1,000 ML 1000 / 1000 500 / 500 @ 40 mls/hr IVC .Q24H [facility] Rx#: [id number] Ofirmev 1,000 mg/100 ml 1,000 100 / 100 100 / 100 100 / 100 mg In 100 ml @ 400 mls/hr IVPB Q6HR [facility] Rx#:[id number] Zosyn 3.375 GM In 0.9 % Sodium 100 / 100 100 / 100 Chloride (Mini-Bag +) 100 ML @ 25 mls/hr IVPB Q8HR [facility] Rx#: [id number] Free Water Intake Amount 45 / 45 30 / 30 15 Output: Catheter 625 / 625 575 / 575 600 / 600 Gastric Drainage 0 / 0 0 / 0 Wound Drainage 0 / 0 15 / 15 0 / 0 Left Neck 0 / 0 15 / 15 0 / 0 Chest Tube Drainage 290 / 290 220 / 220 290 / 290 Left Mid-Axillary Chest 160 / 160 110 / 110 170 / 170 Right Mid-Axillary Chest 130 / 130 110 / 110 120 / 120 Other: Weight 88.9 kg Blood Glucose* 113 83 Patient Weight 04/27/18 23:59 Weight 88.9 kg - Labs 04/27/18 03:18 04/27/18 03:18 Diabetes panel 04/27/18 Range/Units 03:18 Sodium 138 (136-145) mEq/L Potassium 4.2 (3.5-5.1) mEq/L Chloride 108 H (98-107) mEq/L Carbon Dioxide 26 (23-29) mEq/L BUN 32 H (8-23) mg/dL Creatinine 0.51 L (0.60-1.20) mg/dL Glucose 130 H (70-105) mg/dL Calcium 8.4 L (8.6-10.3) mg/dL Calcium panel 04/27/18 04/27/18 Range/Units 03:18 03:18 Calcium 8.4 L (8.6-10.3) mg/dL Phosphorus 3.2 (2.7-4.5) mg/dL Pituitary panel 04/27/18 Range/Units 03:18 Sodium 138 (136-145) mEq/L Potassium 4.2 (3.5-5.1) mEq/L Chloride 108 H (98-107) mEq/L Carbon Dioxide 26 (23-29) mEq/L BUN 32 H (8-23) mg/dL Creatinine 0.51 L (0.60-1.20) mg/dL Glucose 130 H (70-105) mg/dL Calcium 8.4 L (8.6-10.3) mg/dL Adrenal panel 04/27/18 Range/Units 03:18 Sodium 138 (136-145) mEq/L Potassium 4.2 (3.5-5.1) mEq/L Chloride 108 H (98-107) mEq/L Carbon Dioxide 26 (23-29) mEq/L BUN 32 H (8-23) mg/dL Creatinine 0.51 L (0.60-1.20) mg/dL Glucose 130 H (70-105) mg/dL Calcium 8.4 L (8.6-10.3) mg/dL - Attending Attestation The patient is seen and evaluated on morning rounds. We will order a Gastrografin swallow to evaluate the proximal anastomosis. If this is intact we will start clear liquids. The patient is awake and alert with normal voice chest tube drainage is falling Дмитрий Lennon MD FACS
[2018-04-27] MEDS ORDERED: OXYCODONE Oral CONC 10 MG/0.5 ML ORAL.SYG SL PRN ×3 (08:39→12:13)
[2018-04-27] MEDS ORDERED: Orphenadrine 60 MG/2 ML VIAL IVP PRN ×2 (08:41→12:13)
[2018-04-27] MEDS: Vasopressin 40 UNIT in D5% in Water 100 ML IV SCH (11:50)
[2018-04-27] MEDS ORDERED: Phenylephrine 10 MG in D5% in Water 250 ML IVC SCH (12:13)
[2018-04-27] MEDS ORDERED: Dextrose Gel 15 GM/37.5 ML TUBE PO PRN ×2 (12:13)
[2018-04-27] MEDS ORDERED: *HR* Dextrose 50 % in Water (Syg) 50 ML SYRINGE IVP PRN (12:13)
[2018-04-27] MEDS ORDERED: Saliva Stimulant 100ml BOTTLE PO PRN (12:13)
[2018-04-27] MEDS ORDERED: Naloxone 0.4 MG/ML INJ IVP PRN (12:13)
[2018-04-27] MEDS ORDERED: Vasopressin 40 UNIT in D5% in Water 100 ML IV SCH (12:13)
[2018-04-27] MEDS ORDERED: Ondansetron 4 MG/2 ML VIAL IVP PRN (12:13)
[2018-04-27] MEDS ORDERED: *HR* Promethazine 25 MG/ML VIAL IVP PRN (12:13)
[2018-04-27] MEDS ORDERED: Clinimix E 5%-15% SOLUTION 2,000 ML with MVI, adult with vitamin K 10 ML IVC SCH ×3 (12:13→17:00)
[2018-04-27] MEDS ORDERED: D5% in Water 1,000 ML IVC PRN (12:13)
[2018-04-27] MEDS ORDERED: Ringers Solution, Lactated 500 ML IVC PRN (12:13)
[2018-04-27] MEDS ORDERED: D10% in Water 500 ML IVC PRN (12:13)
[2018-04-27] MEDS: *HR* Morphine 2 MG/ML SYRINGE IVP PRN (15:00)
[2018-04-27] MEDS: OXYCODONE Oral CONC 10 MG/0.5 ML ORAL.SYG SL PRN ×2 (17:29→20:38)
[2018-04-28] MEDS: Acetaminophen IV 1,000 MG/100 ML INFUS..BTL IVPB SCH ×4 (00:01→17:02)
[2018-04-28] MEDS: Piperacillin/Tazobactam 3.375 GM in 0.9 % Sodium Chloride Mini Bag 100 ML IVPB SCH ×3 (00:02→16:47)
[2018-04-28] MEDS: Insulin LISPRO 300 UNITS/3 ML VIAL SQ SCH ×4 (03:07→17:26)
[2018-04-28] MEDS: Ipratropium/Albuterol Neb 3 ML IH SCH ×4 (03:43→22:47)
[2018-04-28] MEDS: OXYCODONE Oral CONC 10 MG/0.5 ML ORAL.SYG SL PRN ×3 (03:50→21:07)
[2018-04-28 04:23] LABS: Nucleated Red Blood Cells 0.2 /100 WBC (0); Red Cell Distribution Width 15.7 % (11.5-14.5)
[2018-04-28 04:25] LABS: Basophils # 0.1 K/mcL (0.0-0.2); Basophils % 0.5 %; Eosinophils # 0.1 K/mcL (0.0-0.6); Eosinophils % 0.6 %; Hematocrit 27.8 % (35.3-44.9); Hemoglobin 8.8 g/dL (11.5-15.4); Immature Granulocytes % 12.1 % (0-4); Immature Platelets 3.6 % (1.1-6.1); Lymphocytes # 0.5 K/mcL (0.6-4.6); Lymphocytes % 3.5 %; Mean Corpuscular HGB Conc 31.7 g/dL (31.6-35.5); Mean Corpuscular Hemoglobin 31.1 pg (28.0-33.3); Mean Corpuscular Volume 98.2 fL (83.0-100.0); Mean Platelet Volume 10.2 fL (9.4-12.4); Monocytes # 0.7 K/mcL (0.0-1.3); Monocytes % 5.2 %; Red Blood Count 2.83 M/mcL (3.82-4.97); Segmented Neutrophils % 78.1 %
[2018-04-28 04:27] LABS: BUN/Creatinine Ratio 63 (6-26); Blood Urea Nitrogen 33 mg/dL (8-23); Calcium 8.4 mg/dL (8.6-10.3); Carbon Dioxide 25 mEq/L (23-29); Chloride 108 mEq/L (98-107); Glucose 145 mg/dL (70-105); Magnesium 1.8 mg/dL (1.6-2.6); Osmolality,Calculated 296 (280-300); Phosphorous 3.3 mg/dL (2.7-4.5); Potassium 4.3 mEq/L (3.5-5.1); Sodium 138 mEq/L (136-145); eGFR For Non-African Americans > 60 (> 60)
[2018-04-28 04:30] LABS: Platelet Count 81 K/mcL (140-400)
[2018-04-28 04:56] LABS: Platelet Estimate Decreased (Normal)
--- NOTE | 2018-04-28 07:18 | Cardiothoracic Progress Note ---
Date of Encounter: 04/28/18 Time of Encounter: 07:17 - Assessment and plan (1) Hemothorax on right Current Visit: Yes Status: Acute The patient remained hemodynamically stable overnight. Chest tube drainage is decreasing. The chest tubes will remain in place until the the drainage has stopped. The chest tubes should remain on suction. The assessment and plan as outlined above was discussed with the patient and/or family members who expressed understanding and agreement. All questions were answered. - Subjective Interval history: The patient remained hemodynamically stable overnight. She is resting com fortably in her hospital bed and breathing comfortably. She has no complaints. Vital Signs, Last 4 Hours Temp Pulse Resp BP Pulse Ox 04/28/18 05:13 98.6 F 112 18 118/70 94 04/28/18 03:44 20 96 Oxgyen Flow Rate Oxygen Flow Rate (LPM) 3 Clinical Data, last 8 Hours Output, Chest Tube Drainage 60 Amount [Right Mid-Axillary Chest] Output, Chest Tube Drainage 60 Amount [Left Mid-Axillary Chest] Weight 04/26/18 04/27/18 04/28/18 23:59 23:59 23:59 Weight 80.3 kg 88.9 kg - Physical Examination General: Conversant, No Apparent Distress Neck: No JVD, Normal carotid pulses Cardiac: Reg Rate and Rhythm, Normal S1 and S2, No Murmur Incision: No signs of infection, Dry/intact dressing Chest tubes: Minimal drainage, Other (No air leak) Lungs: Normal Breath Sounds, No Wheeze, Rales, Rhonchi Neuro: Alert and responsive, No focal deficits noted Vascular: Normal capillary refill Extremities: No Clubbing, No Cyanosis, No Edema - Labs 04/28/18 03:40 04/28/18 03:40 Lab Results, Last 24 hours 04/28/18 04/28/18 03:40 03:40 WBC 14.1 H Hgb 8.8 L Hct 27.8 L Plt Count 81 L Sodium 138 Potassium 4.3 Chloride 108 H Carbon Dioxide 25 BUN 33 H Creatinine 0.52 L Glucose 145 H Calcium 8.4 L Magnesium 1.8 Consult Discharge Plan - Plan Referrals: Maia Barksdale, LOGISTICS SUPPLY OFFICER [Primary Care Provider] -
--- NOTE | 2018-04-28 09:02 | General Surgery Progress Note ---
Date of Encounter: 04/28/18 Time of Encounter: 07:30 - Assessment and Plan (1) Acute blood loss anemia Current Visit: Yes Status: Acute The patient received transfusion for acute blood loss anemia associated with surgery. Her low hematocrit was 21.9%. After transfusion she was 29.7%. This helped resolve her tachycardia. (2) Severe protein-calorie malnutrition Current Visit: Yes Status: Acute The patient currently has trickle feeds going through a jejunostomy inadequate for 24-hour caloric support and nutritional needs. She is also receiving total parenteral nutrition via PICC line. (3) Esophageal cancer Current Visit: Yes Status: Acute The patient had successful transhiatal esophagectomy. Postoperative complications included bilateral pleural effusions. This is been managed with chest tube placement and the patient is doing well. The proximal anastomosis appears intact on physical examination, we will plan on Gastrografin swallow tomorrow. Pathology is pending. 04/28/2018 the patient is progressing very well. There is no evidence of leak on Gastrografin swallow. She is now on clear liquid diet. We will advance the jejunostomy tube feedings as soon as she has flatus or bowel movement. TPN will be weaned off at that time. 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 She is doing quite well with very little postoperative pain. She tolerated oral intake of clear liquids. We will allow her to advance to a clear liquid diet and as soon as she passes flatus or bowel movement we will advance the jejunostomy tube feedings and wean her TPN to off. I am very pleased with her overall clinical course. The chest tubes will be removed when drainage subsides drainage is serosanguineous Objective Vital Signs - Last 8 Hours Temp Pulse Resp BP Pulse Ox 04/28/18 07:33 98.3 F 105 16 118/66 93 04/28/18 05:13 98.6 F 112 18 118/70 94 04/28/18 03:44 20 96 Intake and Output 04/27/18 04/28/18 04/28/18 23:59 07:59 15:59 Intake Total 260 / 260 160 / 160 0 / 0 Output Total 630 / 630 720 / 720 Balance -370 / -370 -560 / -560 0 / 0 Intake: IV Fluids 200 / 200 100 / 100 Ofirmev 1,000 mg/100 ml 1,000 100 / 100 100 / 100 mg In 100 ml @ 400 mls/hr IVPB Q6HR [facility] Rx#:[id number] Zosyn 3.375 GM In 0.9 % Sodium 100 / 100 Chloride (Mini-Bag +) 100 ML @ 25 mls/hr IVPB Q8HR [facility] Rx#: [id number] Oral 60 / 60 0 / 0 Free Water Intake Amount 0 / 0 60 / 60 Output: Catheter 550 / 550 600 / 600 Urethral (Mitchell) 600 / 600 Wound Drainage 0 / 0 Left Neck 0 / 0 Chest Tube Drainage 80 / 80 120 / 120 Left Mid-Axillary Chest 70 / 70 60 / 60 Right Mid-Axillary Chest 10 / 10 60 / 60 Other: Meal NPO Percent of Meal Consumed 0% Blood Glucose* 127 141 - General physical appearance well developed, well nourished, no distress, no pain - Respiratory normal expansion (Chest tube drainage decreasing with serosanguineous drainage), normal respiratory effort, clear to percussion, clear to auscultation - Cardiovascular Cardiovascular exam: Present: RRR, no murmurs/rubs/gallops - Abdomen Abdomen: Present: bowel sounds present - Neurologic CN 2-12 grossly intact, normal coordination, normal sensation - Psychiatric oriented to time, oriented to person, oriented to place, speech is normal, memory intact - Labs 04/28/18 03:40 04/28/18 03:40 Diabetes panel 04/28/18 Range/Units 03:40 Sodium 138 (136-145) mEq/L Potassium 4.3 (3.5-5.1) mEq/L Chloride 108 H (98-107) mEq/L Carbon Dioxide 25 (23-29) mEq/L BUN 33 H (8-23) mg/dL Creatinine 0.52 L (0.60-1.20) mg/dL Glucose 145 H (70-105) mg/dL Calcium 8.4 L (8.6-10.3) mg/dL Calcium panel 04/28/18 Range/Units 03:40 Calcium 8.4 L (8.6-10.3) mg/dL Phosphorus 3.3 (2.7-4.5) mg/dL Pituitary panel 04/28/18 Range/Units 03:40 Sodium 138 (136-145) mEq/L Potassium 4.3 (3.5-5.1) mEq/L Chloride 108 H (98-107) mEq/L Carbon Dioxide 25 (23-29) mEq/L BUN 33 H (8-23) mg/dL Creatinine 0.52 L (0.60-1.20) mg/dL Glucose 145 H (70-105) mg/dL Calcium 8.4 L (8.6-10.3) mg/dL Adrenal panel 04/28/18 Range/Units 03:40 Sodium 138 (136-145) mEq/L Potassium 4.3 (3.5-5.1) mEq/L Chloride 108 H (98-107) mEq/L Carbon Dioxide 25 (23-29) mEq/L BUN 33 H (8-23) mg/dL Creatinine 0.52 L (0.60-1.20) mg/dL Glucose 145 H (70-105) mg/dL Calcium 8.4 L (8.6-10.3) mg/dL - Imaging Chest x-ray: image reviewed (Slight opacification of the right lung has now resolved. Costophrenic angles are sharp. Chest tubes in place bilaterally) Consult Discharge Plan - Plan Referrals: Maia Barksdale, RING PACKER [Primary Care Provider] -
[2018-04-28] MEDS: Pantoprazole 40 MG VIAL IVP SCH (09:03)
[2018-04-28] MEDS ORDERED: Clinimix E 5%-15% SOLUTION 2,000 ML with MVI, adult with vitamin K 10 ML IVC SCH (17:00)
[2018-04-28] MEDS: *HR* Morphine 2 MG/ML SYRINGE IVP PRN (23:56)
[2018-04-29] MEDS: Piperacillin/Tazobactam 3.375 GM in 0.9 % Sodium Chloride Mini Bag 100 ML IVPB SCH ×3 (00:05→16:10)
[2018-04-29] MEDS: Acetaminophen IV 1,000 MG/100 ML INFUS..BTL IVPB SCH ×5 (00:07→23:48)
[2018-04-29] MEDS: OXYCODONE Oral CONC 10 MG/0.5 ML ORAL.SYG SL PRN ×2 (03:01→19:41)
[2018-04-29] MEDS: Ipratropium/Albuterol Neb 3 ML IH SCH ×4 (04:11→21:37)
[2018-04-29] MEDS: *HR* Morphine 2 MG/ML SYRINGE IVP PRN ×4 (04:31→21:38)
[2018-04-29] MEDS: Insulin LISPRO 300 UNITS/3 ML VIAL SQ SCH ×4 (06:01→19:36)
[2018-04-29 06:37] LABS: Mean Corpuscular Volume 98.2 fL (83.0-100.0)
[2018-04-29 06:39] LABS: Hematocrit 27.8 % (35.3-44.9); Hemoglobin 8.9 g/dL (11.5-15.4); Immature Platelets 3.6 % (1.1-6.1); Lymphocytes # 0.6 K/mcL (0.6-4.6); Mean Corpuscular Hemoglobin 31.4 pg (28.0-33.3); Nucleated Red Blood Cells 0.2 /100 WBC (0); Red Blood Count 2.83 M/mcL (3.82-4.97); Red Cell Distribution Width 16.1 % (11.5-14.5)
[2018-04-29 06:55] LABS: BUN/Creatinine Ratio 57 (6-26); Blood Urea Nitrogen 35 mg/dL (8-23); Calcium 8.3 mg/dL (8.6-10.3); Carbon Dioxide 24 mEq/L (23-29); Chloride 104 mEq/L (98-107); Glucose 137 mg/dL (70-105); Magnesium 1.9 mg/dL (1.6-2.6); Osmolality,Calculated 288 (280-300); Phosphorous 3.6 mg/dL (2.7-4.5); Potassium 4.3 mEq/L (3.5-5.1); Sodium 134 mEq/L (136-145); eGFR For Non-African Americans > 60 (> 60)
--- NOTE | 2018-04-29 07:16 | Cardiothoracic Progress Note ---
Date of Encounter: 04/29/18 Time of Encounter: 07:15 - Assessment and plan (1) Hemothorax on right Current Visit: Yes Status: Acute The patient remained hemodynamically stable overnight. The chest tubes were removed. The assessment and plan as outlined above was discussed with the patient and/or family members who expressed understanding and agreement. All questions were answered. - Subjective Interval history: The patient remained hemodynamically stable overnight. She is resting comfortably in her hospital bed and breathing comfortably. She has no complaints. Vital Signs, Last 4 Hours Temp Pulse Resp BP Pulse Ox 04/29/18 06:41 98.2 F 101 18 103/65 93 04/29/18 04:12 20 91 04/29/18 04:00 98.4 F 101 20 105/65 92 Oxgyen Flow Rate Oxygen Flow Rate (LPM) 0 Weight 04/27/18 04/28/18 04/29/18 23:59 23:59 23:59 Weight 88.9 kg 95.6 kg - Physical Examination General: Conversant, No Apparent Distress Neck: No JVD, Normal carotid pulses Cardiac: Reg Rate and Rhythm, Normal S1 and S2, No Murmur Incision: No signs of infection, Dry/intact dressing Chest tubes: Minimal drainage, Other (No air leak) Lungs: Normal Breath Sounds, No Wheeze, Rales, Rhonchi Neuro: Alert and responsive, No focal deficits noted Vascular: Normal capillary refill Extremities: No Clubbing, No Cyanosis, No Edema - Labs 04/28/18 03:40 04/29/18 06:15 Lab Results, Last 24 hours 04/29/18 06:15 Sodium 134 L Potassium 4.3 Chloride 104 Carbon Dioxide 24 BUN 35 H Creatinine 0.61 Glucose 137 H Calcium 8.3 L Magnesium 1.9 - Imaging Chest Xray: image reviewed (No pneumothorax. Minimal bibasilar atelectasis/infiltrates.) Consult Discharge Plan - Plan Referrals: Дмитрий Lennon MD [Partnered Physician] - Maia Barksdale CNP [Primary Care Provider] - Alli Kumar MD [Partnered Physician] -
[2018-04-29 07:39] LABS: Platelet Count 85 K/mcL (140-400)
[2018-04-29 07:49] LABS: Monocytes # 0.3 K/mcL (0.0-1.3); Platelet Estimate Decreased (Normal)
[2018-04-29] MEDS: Pantoprazole 40 MG VIAL IVP SCH (08:57)
[2018-04-29] MEDS ORDERED: Clinimix E 5%-15% SOLUTION 2,000 ML with MVI, adult with vitamin K 10 ML IVC SCH (17:00)
[2018-04-30] MEDS: Piperacillin/Tazobactam 3.375 GM in 0.9 % Sodium Chloride Mini Bag 100 ML IVPB SCH ×4 (00:22→23:46)
[2018-04-30] MEDS: Ipratropium/Albuterol Neb 3 ML IH SCH ×4 (04:00→21:47)
[2018-04-30 04:22] LABS: Basophils % 0.1 %; Eosinophils # 0.1 K/mcL (0.0-0.6); Eosinophils % 0.5 %; Hematocrit 28.5 % (35.3-44.9); Hemoglobin 7.6 g/dL (11.5-15.4); Lymphocytes # 0.5 K/mcL (0.6-4.6); Mean Corpuscular HGB Conc 26.7 g/dL (31.6-35.5); Mean Corpuscular Hemoglobin 31.5 pg (28.0-33.3); Mean Platelet Volume 10.6 fL (9.4-12.4); Monocytes # 0.5 K/mcL (0.0-1.3); Monocytes % 3.1 %; Red Blood Count 2.41 M/mcL (3.82-4.97); Red Cell Distribution Width 17.2 % (11.5-14.5); Segmented Neutrophils % 89.3 %
[2018-04-30] MEDS: Insulin LISPRO 300 UNITS/3 ML VIAL SQ SCH ×5 (04:23→23:57)
[2018-04-30 04:24] LABS: Mean Corpuscular Volume 118.3 fL (83.0-100.0); Neutrophils # 14.5 K/mcL (1.6-8.9); Platelet Count 78 K/mcL (140-400)
[2018-04-30] MEDS: *HR* Morphine 2 MG/ML SYRINGE IVP PRN ×3 (04:26→17:19)
[2018-04-30 04:48] LABS: Anisocytosis 2+ (Not Present); Macrocytosis Present (Not Present); Platelet Estimate Decreased (Normal)
[2018-04-30] MEDS: Acetaminophen IV 1,000 MG/100 ML INFUS..BTL IVPB SCH ×4 (06:24→23:47)
[2018-04-30 06:27] LABS: BUN/Creatinine Ratio 54 (6-26); Blood Urea Nitrogen 32 mg/dL (8-23); Calcium 8.3 mg/dL (8.6-10.3); Carbon Dioxide 24 mEq/L (23-29); Chloride 102 mEq/L (98-107); Glucose 154 mg/dL (70-105); Osmolality,Calculated 284 (280-300); Phosphorous 3.2 mg/dL (2.7-4.5); Potassium 4.3 mEq/L (3.5-5.1); Sodium 132 mEq/L (136-145); eGFR For Non-African Americans > 60 (> 60)
[2018-04-30] MEDS: Pantoprazole 40 MG VIAL IVP SCH (07:41)
[2018-04-30] MEDS: OXYCODONE Oral CONC 10 MG/0.5 ML ORAL.SYG SL PRN ×3 (07:42→21:18)
[2018-04-30] MEDS ORDERED: *HR* Alteplase (Cathflo) 2 MG VIAL IVP ONE ×2 (08:47→08:48)
--- NOTE | 2018-04-30 08:54 | General Surgery Progress Note ---
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 Subjective Patient reports: no new complaints, feels better, still having pain, pain is less, no flatus, no bowel movement, afebrile Objective Vital Signs - Last 8 Hours Temp Pulse Resp BP Pulse Ox 04/30/18 08:44 18 96 04/30/18 06:34 98.2 F 98 20 103/60 97 04/30/18 04:38 94 04/30/18 04:20 98 F 98 20 101/54 95 04/30/18 04:01 21 92 Intake and Output 04/29/18 04/30/18 04/30/18 23:59 07:59 15:59 Intake Total 345 / 345 315 / 315 Output Total 150 / 150 650 / 650 Balance 195 / 195 -335 / -335 Intake: IV Fluids 200 / 200 300 / 300 Ofirmev 1,000 mg/100 ml 1,000 100 / 100 200 / 200 mg In 100 ml @ 400 mls/hr IVPB Q6HR [facility] Rx#:[id number] Zosyn 3.375 GM In 0.9 % Sodium 100 / 100 100 / 100 Chloride (Mini-Bag +) 100 ML @ 25 mls/hr IVPB Q8HR [facility] Rx#: [id number] Oral 130 / 130 Free Water Intake Amount 15 / 15 15 / 15 Output: Catheter 150 / 150 650 / 650 Wound Drainage 0 / 0 0 / 0 Left Neck 0 / 0 0 / 0 Other: Meal Dinner Weight 95.7 kg Blood Glucose* 135 133 Patient Weight 04/30/18 23:59 Weight 95.7 kg - General physical appearance no distress - Respiratory normal expansion, normal respiratory effort - Cardiovascular Cardiovascular exam: Present: RRR - Abdomen Abdomen: Present: soft, tender (minimal discomfort) - Incision Incision: Present: clean and dry, intact - Neurologic CN 2-12 grossly intact - Psychiatric oriented to time, oriented to person, oriented to place - Labs 04/30/18 04:00 04/30/18 05:58 Diabetes panel 04/30/18 Range/Units 05:58 Sodium 132 L (136-145) mEq/L Potassium 4.3 (3.5-5.1) mEq/L Chloride 102 (98-107) mEq/L Carbon Dioxide 24 (23-29) mEq/L BUN 32 H (8-23) mg/dL Creatinine 0.59 L (0.60-1.20) mg/dL Glucose 154 H (70-105) mg/dL Calcium 8.3 L (8.6-10.3) mg/dL Calcium panel 04/30/18 Range/Units 05:58 Calcium 8.3 L (8.6-10.3) mg/dL Phosphorus 3.2 (2.7-4.5) mg/dL Pituitary panel 04/30/18 Range/Units 05:58 Sodium 132 L (136-145) mEq/L Potassium 4.3 (3.5-5.1) mEq/L Chloride 102 (98-107) mEq/L Carbon Dioxide 24 (23-29) mEq/L BUN 32 H (8-23) mg/dL Creatinine 0.59 L (0.60-1.20) mg/dL Glucose 154 H (70-105) mg/dL Calcium 8.3 L (8.6-10.3) mg/dL Adrenal panel 04/30/18 Range/Units 05:58 Sodium 132 L (136-145) mEq/L Potassium 4.3 (3.5-5.1) mEq/L Chloride 102 (98-107) mEq/L Carbon Dioxide 24 (23-29) mEq/L BUN 32 H (8-23) mg/dL Creatinine 0.59 L (0.60-1.20) mg/dL Glucose 154 H (70-105) mg/dL Calcium 8.3 L (8.6-10.3) mg/dL Consult Discharge Plan - Plan Referrals: Дмитрий Lennon MD [Partnered Physician] - Maia Barksdale CNP [Primary Care Provider] - Alli Kumar MD [Partnered Physician] -
--- NOTE | 2018-04-30 10:16 | General Surgery Progress Note ---
Date of Encounter: 04/30/18 Time of Encounter: 10:14 - Assessment and Plan (1) Esophageal cancer Current Visit: Yes Status: Acute 67F POD #9 s/p transhiatal esophagectomy with feeding jejunostomy; no respiratory difficulties; OOBTC; WBC still elevated neuro: cont current pain regimen pulm: PNA; currently on abx; IS usage 10 breaths an hr GI: cont with TPN; okay to advance J tube feeds; increase to 40mls/hr and advancing 10 mL q4hr to goal of 60mls/hr : still with silva catheter; still with good UOP; okay to d/c ID; Cont current abx regimen; if not decrease in WBC on 05/01, then recommend ID consult heme: slow down trend in H/h; will cont to hold chemical dvt prophylaxix and cont mechanical dvt prophylaxis until h/h remains stable; currently HDS, HR wnl; will hold on transfusion at present; if patient becomes tachycardic or SBP begins to drop, then will plan for transfusion MSk: OOBTC; activity as tolerated Qualifiers: Malignant neoplasm of esophagus location: middle third Qualified Code(s): 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 Subjective Patient reports: no new complaints, feels better, still having pain, pain is less, flatus, afebrile Objective Vital Signs - Last 8 Hours Temp Pulse Resp BP Pulse Ox 04/30/18 08:44 18 96 04/30/18 06:34 98.2 F 98 20 103/60 97 04/30/18 04:38 94 04/30/18 04:20 98 F 98 20 101/54 95 04/30/18 04:01 21 92 Intake and Output 04/29/18 04/30/18 04/30/18 23:59 07:59 15:59 Intake Total 345 / 345 315 / 315 375 / 375 Output Total 150 / 150 650 / 650 0 / 0 Balance 195 / 195 -335 / -335 375 / 375 Intake: IV Fluids 200 / 200 300 / 300 Ofirmev 1,000 mg/100 ml 1,000 100 / 100 200 / 200 mg In 100 ml @ 400 mls/hr IVPB Q6HR [facility] Rx#:[id number] Zosyn 3.375 GM In 0.9 % Sodium 100 / 100 100 / 100 Chloride (Mini-Bag +) 100 ML @ 25 mls/hr IVPB Q8HR [facility] Rx#: [id number] Oral 130 / 130 360 / 360 Free Water Intake Amount Output: Catheter 150 / 150 650 / 650 Wound Drainage 0 / 0 0 / 0 0 / 0 Left Neck 0 / 0 0 / 0 0 / 0 Other: Meal Dinner Breakfast Weight 95.7 kg Blood Glucose* 135 133 Patient Weight 04/30/18 23:59 Weight 95.7 kg - General physical appearance no distress - Respiratory normal expansion, normal respiratory effort, clear to auscultation - Abdomen Abdomen: Present: soft, non tender - Incision Incision: Present: clean and dry - Neurologic CN 2-12 grossly intact - Psychiatric oriented to time, oriented to person, oriented to place - Labs 04/30/18 04:00 04/30/18 05:58 Diabetes panel 04/30/18 Range/Units 05:58 Sodium 132 L (136-145) mEq/L Potassium 4.3 (3.5-5.1) mEq/L Chloride 102 (98-107) mEq/L Carbon Dioxide 24 (23-29) mEq/L BUN 32 H (8-23) mg/dL Creatinine 0.59 L (0.60-1.20) mg/dL Glucose 154 H (70-105) mg/dL Calcium 8.3 L (8.6-10.3) mg/dL Calcium panel 04/30/18 Range/Units 05:58 Calcium 8.3 L (8.6-10.3) mg/dL Phosphorus 3.2 (2.7-4.5) mg/dL Pituitary panel 04/30/18 Range/Units 05:58 Sodium 132 L (136-145) mEq/L Potassium 4.3 (3.5-5.1) mEq/L Chloride 102 (98-107) mEq/L Carbon Dioxide 24 (23-29) mEq/L BUN 32 H (8-23) mg/dL Creatinine 0.59 L (0.60-1.20) mg/dL Glucose 154 H (70-105) mg/dL Calcium 8.3 L (8.6-10.3) mg/dL Adrenal panel 04/30/18 Range/Units 05:58 Sodium 132 L (136-145) mEq/L Potassium 4.3 (3.5-5.1) mEq/L Chloride 102 (98-107) mEq/L Carbon Dioxide 24 (23-29) mEq/L BUN 32 H (8-23) mg/dL Creatinine 0.59 L (0.60-1.20) mg/dL Glucose 154 H (70-105) mg/dL Calcium 8.3 L (8.6-10.3) mg/dL - Imaging Chest x-ray: report reviewed, image reviewed (L sided pneumonia, likley right sided as well; ) Consult Discharge Plan - Plan Referrals: Дмитрий Lennon MD [Partnered Physician] - Maia Barksdale CNP [Primary Care Provider] - Alli Kumar MD [Partnered Physician] -
[2018-04-30] MEDS ORDERED: Clinimix E 5%-15% SOLUTION 2,000 ML with MVI, adult with vitamin K 10 ML IVC SCH (17:00)
[2018-05-01] MEDS: Ipratropium/Albuterol Neb 3 ML IH SCH ×3 (04:28→15:57)
[2018-05-01] MEDS: Insulin LISPRO 300 UNITS/3 ML VIAL SQ SCH ×3 (05:12→17:21)
[2018-05-01] MEDS: OXYCODONE Oral CONC 10 MG/0.5 ML ORAL.SYG SL PRN ×2 (05:28→19:39)
[2018-05-01] MEDS: Acetaminophen IV 1,000 MG/100 ML INFUS..BTL IVPB SCH (05:29)
[2018-05-01 07:47] LABS: Basophils % 0.2 %; Mean Platelet Volume 10.6 fL (9.4-12.4); Monocytes % 3.9 %
[2018-05-01 07:49] LABS: Eosinophils # 0.1 K/mcL (0.0-0.6); Eosinophils % 0.5 %; Hematocrit 27.2 % (35.3-44.9); Hemoglobin 8.6 g/dL (11.5-15.4); Immature Granulocytes % 2.5 % (0-4); Immature Platelets 4.4 % (1.1-6.1); Lymphocytes # 0.5 K/mcL (0.6-4.6); Lymphocytes % 2.5 %; Mean Corpuscular HGB Conc 31.6 g/dL (31.6-35.5); Mean Corpuscular Hemoglobin 31.6 pg (28.0-33.3); Monocytes # 0.7 K/mcL (0.0-1.3); Neutrophils # 16.5 K/mcL (1.6-8.9); Red Blood Count 2.72 M/mcL (3.82-4.97); Red Cell Distribution Width 15.9 % (11.5-14.5); Segmented Neutrophils % 90.4 %
[2018-05-01 07:56] LABS: Platelet Count 96 K/mcL (140-400)
[2018-05-01 08:08] LABS: BUN/Creatinine Ratio 57 (6-26); Blood Urea Nitrogen 32 mg/dL (8-23); Calcium 8.3 mg/dL (8.6-10.3); Carbon Dioxide 25 mEq/L (23-29); Chloride 103 mEq/L (98-107); Glucose 150 mg/dL (70-105); Magnesium 1.9 mg/dL (1.6-2.6); Osmolality,Calculated 286 (280-300); Potassium 4.4 mEq/L (3.5-5.1); Sodium 133 mEq/L (136-145); eGFR For Non-African Americans > 60 (> 60)
[2018-05-01] MEDS ORDERED: Furosemide 40 MG/4 ML VIAL IVP ONE (08:36)
[2018-05-01] MEDS: Piperacillin/Tazobactam 3.375 GM in 0.9 % Sodium Chloride Mini Bag 100 ML IVPB SCH ×2 (08:59→18:10)
[2018-05-01] MEDS: Pantoprazole 40 MG VIAL IVP SCH (09:01)
[2018-05-01] MEDS: *HR* OxyCODONE/APAP 5/325 TABLET PO PRN (09:02)
--- NOTE | 2018-05-01 09:31 | General Surgery Progress Note ---
<AdamSowmya Lito - Last Filed: 05/01/18 09:23> Date of Encounter: 05/01/18 Time of Encounter: 07:00 - Assessment and Plan (1) Esophageal cancer Current Visit: Yes Status: Acute Date of procedure: 04/21/18 Pre-op diagnosis: Esophageal cancer Post-op diagnosis: same Procedure: #1 transhiatal esophagectomy #2 jejunostomy Anesthesia: GETA Surgeon: Дмитрий Lennon Was there an assistant store manager sales present: Yes Bottling Attendant: Alli Kumar POD #10 as above, pathology pending (did review tming with pathology who expects results to be signed out in the next 24-48 hours). She was transfused 2U PRBC for acute blood loss anemia and started on Venofer for chronic iron def anemia, with good results. Hgb stable. No evidence of bleeding she is recovering remarkably well. CTs were d/c'd 04/29/[address] surgery. CXr PA/LAt obtained d/t increased WBC and is with noted increasing small right pleural effusion with adjacent atelectasis and interval decrease in the left pleural effusion. We will give 40 mg IV Lasix (1 dose) and the patient is encouraged aggressive pulmonary toileting. Reviewed with bedside RN and nursing associate. She also reports productive cough. She is having difficulty expelling the sputum. We will add Mucomyst and continue aggressive pulmonary toileting Plan: Advance diet to FLD. 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 Resolving. (3) Hemothorax, postoperative Current Visit: Yes Status: Resolved Management per Thoracic surgery (4) Acute kidney injury Current Visit: Yes Status: Resolved See assessment and plan above. (5) DVT prophylaxis Current Visit: Yes Status: Acute EPCDs Heparin 5000 uits SQ BID (6) Severe protein-calorie malnutrition Current Visit: Yes Status: Acute Stop TPN FLD, ok for protein supplement per resin painter recommendations Advance t-feeds as tolerated per dietitian's Objective Vital Signs - Last 8 Hours Temp Pulse Resp BP Pulse Ox 05/01/18 08:49 95 93 05/01/18 04:56 95 05/01/18 04:29 16 98 05/01/18 03:45 98.5 F 98 18 107/67 100 Intake and Output 04/30/18 05/01/18 05/01/18 23:59 07:59 15:59 Intake Total 730 / 730 230 / 230 30 / 30 Output Total 752 / 752 300 / 300 0 / 0 Balance -22 / -22 -70 / -70 30 / 30 Intake: IV Fluids 200 / 200 200 / 200 Ofirmev 1,000 mg/100 ml 1,000 100 / 100 100 / 100 mg In 100 ml @ 400 mls/hr IVPB Q6HR [facility] Rx#:[id number] Zosyn 3.375 GM In 0.9 % Sodium 100 / 100 100 / 100 Chloride (Mini-Bag +) 100 ML @ 25 mls/hr IVPB Q8HR KO[facility] Rx#: [id number] Oral 500 / 500 Free Water 30 / 30 Free Water Intake Amount 30 / 30 30 / 30 Output: Catheter 750 / 750 300 / 300 Wound Drainage 2 / 2 0 / 0 Left Neck 2 / 2 0 / 0 Other: Meal Dinner Blood Glucose* 144 146 - Labs 05/01/18 07:02 05/01/18 07:02 Diabetes panel 05/01/18 Range/Units 07:02 Sodium 133 L (136-145) mEq/L Potassium 4.4 (3.5-5.1) mEq/L Chloride 103 (98-107) mEq/L Carbon Dioxide 25 (23-29) mEq/L BUN 32 H (8-23) mg/dL Creatinine 0.56 L (0.60-1.20) mg/dL Glucose 150 H (70-105) mg/dL Calcium 8.3 L (8.6-10.3) mg/dL Calcium panel 05/01/18 Range/Units 07:02 Calcium 8.3 L (8.6-10.3) mg/dL Phosphorus 3.0 (2.7-4.5) mg/dL Pituitary panel 05/01/18 Range/Units 07:02 Sodium 133 L (136-145) mEq/L Potassium 4.4 (3.5-5.1) mEq/L Chloride 103 (98-107) mEq/L Carbon Dioxide 25 (23-29) mEq/L BUN 32 H (8-23) mg/dL Creatinine 0.56 L (0.60-1.20) mg/dL Glucose 150 H (70-105) mg/dL Calcium 8.3 L (8.6-10.3) mg/dL Adrenal panel 05/01/18 Range/Units 07:02 Sodium 133 L (136-145) mEq/L Potassium 4.4 (3.5-5.1) mEq/L Chloride 103 (98-107) mEq/L Carbon Dioxide 25 (23-29) mEq/L BUN 32 H (8-23) mg/dL Creatinine 0.56 L (0.60-1.20) mg/dL Glucose 150 H (70-105) mg/dL Calcium 8.3 L (8.6-10.3) mg/dL Consult Discharge Plan - Plan Referrals: Дмитрий Lennon MD [Partnered Physician] - Maia Barksdale CNP [Primary Care Provider] - lAli Kumar MD [Partnered Physician] - <Дмитрий Lennon - Last Filed: 05/01/18 12:30> Date of Encounter: 05/01/18 - Assessment and Plan (1) Acute blood loss anemia Current Visit: Yes Status: Acute (2) Severe protein-calorie malnutrition Current Visit: Yes Status: Acute (3) Esophageal cancer Current Visit: Yes Status: Acute Qualifiers: Malignant neoplasm of esophagus location: middle third Qualified Code(s): 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 Adult 10 ml Rx# :[id number] Ofirmev 1,000 mg/100 ml 1,000 100 / 100 200 / 200 mg In 100 ml @ 400 mls/hr IVPB Q6HR [facility] Rx#:[id number] Zosyn 3.375 GM In 0.9 % Sodium 100 / 100 100 / 100 Chloride (Mini-Bag +) 100 ML @ 25 mls/hr IVPB Q8HR [facility] Rx#: [id number] Oral 500 / 500 500 / 500 Free Water 30 / 30 Free Water Intake Amount 30 30 30 / 30 Output: Catheter 750 / 750 300 / 300 800 / 800 Wound Drainage 2 / 2 0 / 0 Left Neck 2 / 2 0 / 0 Other: Meal Dinner Breakfast Percent of Meal Consumed 30% Stool Size Moderate Stool Consistency loose Stool Color Brown Blood Glucose* 144 146 133 - Labs 05/01/18 07:02 05/01/18 07:02 Diabetes panel 05/01/18 Range/Units 07:02 Sodium 133 L (136-145) mEq/L Potassium 4.4 (3.5-5.1) mEq/L Chloride 103 (98-107) mEq/L Carbon Dioxide 25 (23-29) mEq/L BUN 32 H (8-23) mg/dL Creatinine 0.56 L (0.60-1.20) mg/dL Glucose 150 H (70-105) mg/dL Calcium 8.3 L (8.6-10.3) mg/dL Calcium panel 05/01/18 Range/Units 07:02 Calcium 8.3 L (8.6-10.3) mg/dL Phosphorus 3.0 (2.7-4.5) mg/dL Pituitary panel 05/01/18 Range/Units 07:02 Sodium 133 L (136-145) mEq/L Potassium 4.4 (3.5-5.1) mEq/L Chloride 103 (98-107) mEq/L Carbon Dioxide 25 (23-29) mEq/L BUN 32 H (8-23) mg/dL Creatinine 0.56 L (0.60-1.20) mg/dL Glucose 150 H (70-105) mg/dL Calcium 8.3 L (8.6-10.3) mg/dL Adrenal panel 05/01/18 Range/Units 07:02 Sodium 133 L (136-145) mEq/L Potassium 4.4 (3.5-5.1) mEq/L Chloride 103 (98-107) mEq/L Carbon Dioxide 25 (23-29) mEq/L BUN 32 H (8-23) mg/dL Creatinine 0.56 L (0.60-1.20) mg/dL Glucose 150 H (70-105) mg/dL Calcium 8.3 L (8.6-10.3) mg/dL - Attending Attestation The patient is seen and evaluated on morning rounds with the clinical nurse practitioner. Lungs demonstrate some sonorous rhonchi. Her white blood cell count was slightly elevated at 16,000 however, she has no shakes chills or f monika documented. Chest tubes have been removed. She is tolerating clear liquid diet. We will advance her to full liquid diet as well as target jejunostomy tube feedings. Wean TPN to off and remove the Silva catheter. We will anticipate discharge tomorrow likely rehabilitation. Дмитрий Lennon MD FACS
[2018-05-01 10:24] LABS: Bilirubin,Urine Negative (Negative); Blood,Urine Negative (Negative); Clarity,Urine Clear (Clear); Color,Urine Yellow (Yellow); Glucose,Urine (UA) Normal (Normal); Ketones,Urine Negative (Negative); Leukocyte Esterase,Urine Negative (Negative); Nitrite,Urine Negative (Negative); Protein,Urine Negative (Neg-Trace); Specific Gravity,Urine 1.014 (1.010-1.025); Urobilinogen,Urine Normal (Normal)
[2018-05-01] MEDS: Acetylcysteine 10% 2 ML INHSOL IH SCH ×4 (11:14→23:11)
[2018-05-01] MEDS: Albuterol 2.5 MG/3 ML NEBULIZER IH SCH ×4 (11:27→23:11)
[2018-05-01] MEDS: Docusate Oral Soln 100 MG/10 ML UDC GTUBE SCH (11:33)
[2018-05-01] MEDS: Ketorolac 15 MG/ML VIAL IVP SCH ×2 (11:33→18:10)
[2018-05-01] MEDS: *HR* Heparin 5,000 UNIT/ML VIAL SQ SCH (17:20)
[2018-05-01] MEDS ORDERED: Ipratropium/Albuterol Neb 3 ML IH PRN (21:38)
[2018-05-02] MEDS: Piperacillin/Tazobactam 3.375 GM in 0.9 % Sodium Chloride Mini Bag 100 ML IVPB SCH ×2 (00:35→07:39)
[2018-05-02] MEDS: Ketorolac 15 MG/ML VIAL IVP SCH ×4 (00:36→12:57)
[2018-05-02] MEDS: *HR* OxyCODONE/APAP 5/325 TABLET PO PRN (00:36)
[2018-05-02] MEDS: Docusate Oral Soln 100 MG/10 ML UDC GTUBE SCH ×2 (00:37→07:38)
[2018-05-02] MEDS: Insulin LISPRO 300 UNITS/3 ML VIAL SQ SCH ×3 (00:42→12:58)
[2018-05-02] MEDS: Acetylcysteine 10% 2 ML INHSOL IH SCH ×4 (03:49→16:05)
[2018-05-02] MEDS: Albuterol 2.5 MG/3 ML NEBULIZER IH SCH ×4 (03:49→16:04)
[2018-05-02 05:02] LABS: Basophils % 0.2 %; Eosinophils # 0.1 K/mcL (0.0-0.6); Eosinophils % 0.7 %; Hematocrit 28.6 % (35.3-44.9); Immature Granulocytes % 1.8 % (0-4); Lymphocytes # 0.4 K/mcL (0.6-4.6); Mean Corpuscular HGB Conc 31.5 g/dL (31.6-35.5); Mean Corpuscular Hemoglobin 31.4 pg (28.0-33.3); Mean Corpuscular Volume 99.7 fL (83.0-100.0); Mean Platelet Volume 10.7 fL (9.4-12.4); Monocytes # 0.7 K/mcL (0.0-1.3); Neutrophils # 12.8 K/mcL (1.6-8.9); Nucleated Red Blood Cells 0.1 /100 WBC (0); Platelet Count 122 K/mcL (140-400); Red Blood Count 2.87 M/mcL (3.82-4.97); Red Cell Distribution Width 16.1 % (11.5-14.5); Segmented Neutrophils % 89.3 %
[2018-05-02 05:22] LABS: BUN/Creatinine Ratio 55 (6-26); Blood Urea Nitrogen 41 mg/dL (8-23); Calcium 8.4 mg/dL (8.6-10.3); Carbon Dioxide 25 mEq/L (23-29); Chloride 102 mEq/L (98-107); Glucose 137 mg/dL (70-105); Osmolality,Calculated 292 (280-300); Potassium 4.2 mEq/L (3.5-5.1); Sodium 135 mEq/L (136-145); eGFR For Non-African Americans > 60 (> 60)
[2018-05-02] MEDS: *HR* Heparin 5,000 UNIT/ML VIAL SQ SCH (05:41)
[2018-05-02] MEDS: Pantoprazole 40 MG VIAL IVP SCH (07:38)
--- NOTE | 2018-05-02 08:07 | Discharge Summary ---
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 (2) Acute blood loss anemia Priority: Secondary Status: Resolved (3) Hemothorax, postoperative Priority: Secondary Status: Resolved (4) Acute kidney injury Priority: Secondary Status: Resolved (5) DVT prophylaxis Priority: Secondary Status: Acute (6) Severe protein-calorie malnutrition Priority: Secondary Status: Acute Comments: Will require long-term TF as primary source of nutrition for greater than 90 days (7) Pneumonia Priority: Secondary Status: Acute Qualifiers: Pneumonia type: due to unspecified organism Laterality: bilateral Lung location: unspecified part of lung Qualified Code(s): J18.9 - Pneumonia, unspecified organism General Surgery Exam Initial Vital Signs Temp Pulse Resp BP Pulse Ox 98.5 F 109 18 114/73 98 04/21/18 06:52 04/21/18 06:52 04/21/18 06:52 04/21/18 06:52 04/21/18 06:52 Vital Signs Temp Pulse Resp BP Pulse Ox 05/02/18 07:55 86 05/02/18 07:15 18 95 05/02/18 06:36 97.8 F 93 18 108/58 05/02/18 04:04 97.6 F 91 18 105/57 95 05/02/18 03:50 18 96 05/02/18 00:09 98.8 F 98 16 100/58 94 05/01/18 23:12 20 96 05/01/18 19:51 98.4 F 103 18 105/58 96 05/01/18 16:41 98.4 F 107 16 104/64 90 05/01/18 15:58 16 94 05/01/18 15:00 98.4 F 107 16 104/64 90 05/01/18 11:33 101 93 Intake and Output 05/01/18 05/02/18 05/02/18 23:59 07:59 15:59 Intake Total 530 / 530 582 / 582 540 / 540 Output Total 150 / 150 400 / 400 Balance 380 / 380 182 / 182 540 / 540 Intake: IV Fluids 100 / 100 100 / 100 Zosyn 3.375 GM In 0.9 % Sodium 100 / 100 100 / 100 Chloride (Mini-Bag +) 100 ML @ 25 mls/hr IVPB Q8HR [facility] Rx#: [id number] Oral 120 / 120 240 / 240 Tube Feeding 280 / 280 452 / 452 260 / 260 Free Water 15 / 15 Free Water Intake Amount 15 15 30 / 30 40 / 40 Output: Urine 150 / 150 400 / 400 Other: Meal Dinner Breakfast Percent of Meal Consumed 15% 100% Stool Size Smear Moderate Stool Consistency loose liquid Stool Color Brown Brown # Voids 1 Weight 95.4 kg Blood Glucose* 107 133 Patient Weight 05/02/18 23:59 Weight 95.4 kg VITAL SIGNS: Reviewed. See [facility] GENERAL: In no apparent distress. HEENT: Normocephalic, atraumatic, pupils are equal and reactive, extraocular motions intact, oropharynx is pink and moist, there is no neck adenopathy or JVD noted. CHEST/RESPIRATORY: The thorax is free from signs of trauma. Lung sounds: improved, course breath sounds CARDIAC: Regular rate and rhythm. VASCULAR: No Edema. 2+ peripheral pulses. ABDOMEN: soft, expected postoperative tenderness, active bowel sounds. INCISION: Surgical incision is clean, dry, and intact. There are no signs of cellulitis or infection noted. WOUNDS/DRAINS: J-tube site as expected. MUSCULOSKELETAL: generalized weakness noted.. NEUROLOGIC EXAM: Alert and oriented x 3. Speech normal. Follows commands. PSYCHIATRIC: Mood normal. SKIN: No rash or lesions. - Hospital Course Hospital course: Ms. Lobo is a 67 year old female who presented on 04/21/2018 for an elective transhiatal esophagectomy and jejunostomy placement. Her hospital course was complicated bilateral pneumothorax, pneumonia, and acute blood loss anemia on chronic anemia. She was treated with bilateral chest tubes, IV antibiotics, and supported with TPN as well as transfuse 2 units packed red blood cells. She was also treated with five-day course of Venofer. She was recommended to go to ECF for rehab, patient and daughter refuse. She is on continuous tube feeds. We will transition to nocturnal. We will begin discharge planning to home with home health for nursing, aid, PT, and OT. Follow-up in the office in approximately 2 weeks. She was also recommended follow-up with the cardiothoracic surgeon in 2 weeks with a chest x-ray prior. - Time Spent with Patient Total time spent providing and/or coordinating discharge services: Greater than 30 minutes Specific discharge activities: d/c panning, TF, DME, HHC - Discharge Medications Prescriptions: Ondansetron ODT [Zofran ODT] 4 mg SL Q4HR PRN #15 tab.rapdis PRN Reason: Postsurgical nausea RX: OxyCODONE/APAP 5/325 [Percocet 5/325 MG] 1 each PO Q6HR PRN 7 Days #28 tablet PRN Reason: mild-moderate pain Docusate Sodium [Colace] 100 mg PO BID PRN #30 capsule PRN Reason: Contstipation levoFLOXacin [Levaquin] 750 mg PO DAILY 7 Days #7 tablet Home Medications: RX: Omeprazole [PriLOSEC] 20 mg PO BIDAC 12/12/17 [History] RX: Lisinopril-HCTZ 10-12.5 [Prinzide 10-12.5] 1 tab PO DAILY 04/21/18 [History] Docusate Sodium [Colace] 100 mg PO BID PRN #30 capsule 05/02/18 [Rx] Ondansetron ODT [Zofran ODT] 4 mg SL Q4HR PRN #15 tab.rapdis 05/02/18 [Rx] RX: OxyCODONE/APAP 5/325 [Percocet 5/325 MG] 1 each PO Q6HR PRN 7 Days #28 tablet 05/02/18 [Rx] levoFLOXacin [Levaquin] 750 mg PO DAILY 7 Days #7 tablet 05/02/18 [Rx] Allergies/Adverse Reactions: Allergy/AdvReac Type Severity Reaction Status Date / Time No Known Allergies Allergy Verified 04/13/18 09:45 Date of admission: 04/21/18 14:22 Primary care physician: Maia Barksdale CNP Consults: 04/21/18 13:50 Consult to Invasive Line Access Team [CONS] Routine Reason for Consult: Picc Line Insertion Line Type: PICC PICC line indications: Parental nutrition 04/21/18 14:06 consult to manufacturing accountant [Consult to Nutrition] [CONS] Stat Comment: Consulting Provider: NUTRITION Reason for Dietary Consult: TPN Start and Manage 04/21/18 19:10 Consult to Computational Mathematician [CONS] Routine Reason for SW Consult: placement 04/25/18 07:35 Consult to Occupational Therapy [CONS] Routine Comment: Evaluate, develop and implement POC Reason for Consult: Mobilization and d/c planning Does patient have active BEDREST order?: No Is patient medically & hemodynamically stable?: Yes Patient assessed for mobility or mobilized this visit?: No Consult to Physical Therapy [CONS] Routine Comment: Evaluate, develop and implement POC Reason for Consult: Mobilization and discharge planning Does patient have active BEDREST order?: No Is patient medically & hemodynamically stable?: Yes Patient assessed for mobility or mobilized this visit?: No 04/28/18 15:25 Consult to Respiratory Therapy [CONS] Routine Reason for Consult: Aggressive pulmonary toileting. Time Notified: 15:25 Call Completed: No Discharging clinician: Дмитрий Lennon Anticipated date of discharge: 05/02/18 Labs on day of discharge: Labs from last 24 hours 05/02/18 05/02/18 05/02/18 05:45 04:27 04:27 WBC 14.3 H RBC 2.87 L Hgb 9.0 L Hct 28.6 L MCV 99.7 MCH 31.4 MCHC 31.5 L RDW 16.1 H Plt Count 122 L MPV 10.7 Immature Gran % 1.8 Seg Neutrophils % 89.3 Lymphocytes % 3.0 Monocytes % 5.0 Eosinophils % 0.7 Basophils % 0.2 Neutrophils # 12.8 H Lymphocytes # 0.4 L Monocytes # 0.7 Eosinophils # 0.1 Basophils # 0.0 Nucleated RBCs/100 WBC 0.1 H Sodium 135 L Potassium 4.2 Chloride 102 Carbon Dioxide 25 BUN 41 H Creatinine 0.74 Est GFR ( Amer) > 60 Est GFR (Non-Af Amer) > 60 BUN/Creatinine Ratio 55 H Glucose 137 H POC Glucose 133 H Calculated Osmolality 292 Calcium 8.4 L Phosphorus Magnesium Urine Color Urine Clarity Urine pH Ur Specific [place] Urine Protein Urine Glucose (UA) Urine Ketones Urine Blood Urine Nitrite Urine Bilirubin Urine Urobilinogen Ur Leukocyte Esterase Ur Culture Indicated? 05/02/18 05/01/18 05/01/18 00:12 Unknown 16:48 WBC RBC Hgb Hct MCV MCH MCHC RDW Plt Count MPV Immature Gran % Seg Neutrophils % Lymphocytes % Monocytes % Eosinophils % Basophils % Neutrophils # Lymphocytes # Monocytes # Eosinophils # Basophils # Nucleated RBCs/100 WBC Sodium Potassium Chloride Carbon Dioxide BUN Creatinine Est GFR ( Amer) Est GFR (Non-Af Amer) BUN/Creatinine Ratio Glucose POC Glucose 117 H 107 H Calculated Osmolality Calcium Phosphorus Magnesium Urine Color Yellow Urine Clarity Clear Urine pH 6.0 Ur Specific [place] 1.014 Urine Protein Negative Urine Glucose (UA) Normal Urine Ketones Negative Urine Blood Negative Urine Nitrite Negative Urine Bilirubin Negative Urine Urobilinogen Normal Ur Leukocyte Esterase Negative Ur Culture Indicated? NO 05/01/18 05/01/18 05/01/18 10:59 07:47 07:02 WBC RBC Hgb Hct MCV MCH MCHC RDW Plt Count MPV Immature Gran % Seg Neutrophils % Lymphocytes % Monocytes % Eosinophils % Basophils % Neutrophils # Lymphocytes # Monocytes # Eosinophils # Basophils # Nucleated RBCs/100 WBC Sodium 133 L Potassium 4.4 Chloride 103 Carbon Dioxide 25 BUN 32 H Creatinine 0.56 L Est GFR ( Amer) > 60 Est GFR (Non-Af Amer) > 60 BUN/Creatinine Ratio 57 H Glucose 150 H POC Glucose 133 H 139 H Calculated Osmolality 286 Calcium 8.3 L Phosphorus 3.0 Magnesium 1.9 Urine Color Urine Clarity Urine pH Ur Specific [place] Urine Protein Urine Glucose (UA) Urine Ketones Urine Blood Urine Nitrite Urine Bilirubin Urine Urobilinogen Ur Leukocyte Esterase Ur Culture Indicated? 05/01/18 04/30/18 05:09 22:51 WBC RBC Hgb Hct MCV MCH MCHC RDW Plt Count MPV Immature Gran % Seg Neutrophils % Lymphocytes % Monocytes % Eosinophils % Basophils % Neutrophils # Lymphocytes # Monocytes # Eosinophils # Basophils # Nucleated RBCs/100 WBC Sodium Potassium Chloride Carbon Dioxide BUN Creatinine Est GFR ( Amer) Est GFR (Non-Af Amer) BUN/Creatinine Ratio Glucose POC Glucose 146 H 144 H Calculated Osmolality Calcium Phosphorus Magnesium Urine Color Urine Clarity Urine pH Ur Specific [place] Urine Protein Urine Glucose (UA) Urine Ketones Urine Blood Urine Nitrite Urine Bilirubin Urine Urobilinogen Ur Leukocyte Esterase Ur Culture Indicated? - Impressions ITS Impressions Chest CTA 04/22/18 12:37 IMPRESSION: Status post esophagectomy with gastric pull-through. Moderate bilateral pleural effusions with increased attenuation of the pleural fluid on the right compatible with a hemothorax. There is a small amount of air in both hemithoraces related to recent surgery. Compressive bibasilar atelectasis. No evidence of pulmonary embolus. D/ / 04/22/2018 13:32:42 Arben Vazquez MD / earno Interpreting Provider: Arben Vazquez MD Chest X-Ray 04/22/18 13:36 IMPRESSION: 1. Line and tube placements as described. 2. Minimal effusions with bibasilar atelectasis. D/ / 04/22/2018 14:10:00 Florentin Sanchez MD / earno Interpreting Provider: Florentin Sanchez MD Chest X-Ray 04/23/18 08:00 IMPRESSION: Bilateral chest tubes. No definite pneumothorax. Mild pulmonary vascular congestion. Minimal pleural effusion at the left lung base. D/ / Mario Chen MD / Mario Chen MD Interpreting Provider: Mario Chen MD Chest X-Ray 04/24/18 08:00 IMPRESSION: Stable exam with no pneumothorax. D/ / 04/24/2018 08:38:23 Mike Peacock MD / estrella Interpreting Provider: Mike Peacock MD Chest X-Ray 04/25/18 08:00 IMPRESSION: Bilateral chest tubes remain in place with no visible pneumothorax. Slightly increased bibasilar opacities, favored to represent atelectasis. D/ / Bogdan Hwang MD / Bogdan Hwang MD Interpreting Provider: Bogdan Hwang MD Chest X-Ray 04/26/18 08:00 IMPRESSION: Essentially stable chest. Left-sided chest tube with tiny left apical pneumothorax. Atelectasis or infiltrate in the lung bases. Left pleural effusion. Follow up to resolution is suggested. D/ / 04/26/2018 07:35:33 Roselyn Ruiz MD / [email or web address] Interpreting Provider: Roselyn Ruiz MD Upper GI Series 04/27/18 07:11 IMPRESSION: 1. Postsurgical change from esophagectomy with gastric pull-through without evidence of leak. D/ / Wes Carmona MD / Wes Carmona MD Interpreting Provider: Wes Carmona MD Chest X-Ray 04/29/18 06:00 IMPRESSION: Increased pleural effusions and bilateral lung consolidation bilaterally. Postsurgical change from esophagectomy and gastric pull-through D/ / Oleg Ralph MD / Oleg Ralph MD Interpreting Provider: Oleg Ralph MD Chest X-Ray 05/01/18 07:09 IMPRESSION: Increasing small right pleural effusion with adjacent atelectasis. Interval decrease in size of left pleural effusion. D/ / Terri Horton MD / Terri Horton MD Interpreting Provider: Terri Horton MD - Patient Status Disposition: Home Health Service Condition: Fair Functional capacity at discharge: uses cane/walker Overall status at discharge: patient is not back to baseline - Ambulatory Orders Ambulatory Orders: XR chest 2V [XR] Time Frame: 2 Weeks, Facility: [facility], Location: Radiology - Discharge Instructions Instructions: Complete Blenderized Diet (GEN), Tube Feeding (GEN), Esophagectomy (DC) Follow Up With: Maia Barksdale CNP [Primary Care Provider] - Alli Kumar MD [Partnered Physician] - (2 weeks; CXR prior to visit) Дмитрий Lennon MD [Partnered Physician] - 05/16/18 8:55 am Additional Instructions: General Surgical Discharge Instructions 1. No pushing, pulling, or lifting greater than 15 lbs for 6 weeks. 2. You may shower beginning today, but no tub baths, soaking, or swimming for 2 weeks. 3. You may resume driving when you are off narcotics,are safe to react in a car, and cleared by home health to do so. 4. Crush medications prior to taking them. Take narcotics as directed. Do not take more narcotics then directed and do not share your narcotics with any other person. Do not drink alcohol while on narcotics. 5. Take stool softeners (Colace) or a water based laxative (Miralax) while taking narcotics. You may hold for loose stools. 6. Report any fevers greater than 100.5F, increase abdominal discomfort, drainage that looks like pus, increased redness or pain at the surgical site, or any vomiting. 7. Report any pain in the calves, shortness of breath, or rapid heartbeat. 8. Follow-up in the office as directed. 9. Take your antibiotics (for Pneumonia)as directed. 10. DO NOT DEVIATE FROM A FULL LIQUID DIET until seen in follow-up by Dr. Lennon and advised to do so. Your by mouth diet is for pleasure. Your tube feeds will supply the primary amount of your nutrition. 11. You may leave your surgical incisions open to air. 12. We will continue Nocturnal tube feeds You will be a high risk for falls. Someone should be with you when you are getting up and walking around. complete the chest x-ray ordered prior to seeing Dr. Wong. 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 Lobo is a 67 year old female - Time Spent with Patient Total time spent providing and/or coordinating discharge services: Date of admission: 04/21/18 14:22 Primary care physician: Maai Barksdale CNP Consults: 04/21/18 13:50 Consult to Invasive Line Access Team [CONS] Routine Reason for Consult: Picc Line Insertion Line Type: PICC PICC line indications: Parental nutrition 04/21/18 14:06 consult to manufacturing accountant [Consult to Nutrition] [CONS] Stat Comment: Consulting Provider: NUTRITION Reason for Dietary Consult: TPN Start and Manage 04/21/18 19:10 Consult to Computational Mathematician [CONS] Routine Reason for SW Consult: placement 04/25/18 07:35 Consult to Occupational Therapy [CONS] Routine Comment: Evaluate, develop and implement POC Reason for Consult: Mobilization and d/c planning Does patient have active BEDREST order?: No Is patient medically & hemodynamically stable?: Yes Patient assessed for mobility or mobilized this visit?: No Consult to Physical Therapy [CONS] Routine Comment: Evaluate, develop and implement POC Reason for Consult: Mobilization and discharge planning Does patient have active BEDREST order?: No Is patient medically & hemodynamically stable?: Yes Patient assessed for mobility or mobilized this visit?: No 04/28/18 15:25 Consult to Respiratory Therapy [CONS] Routine Reason for Consult: Aggressive pulmonary toileting. Time Notified: 15:25 Call Completed: No Labs on day of discharge: Labs from last 24 hours 05/02/18 05/02/18 05/02/18 05:45 04:27 04:27 WBC 14.3 H RBC 2.87 L Hgb 9.0 L Hct 28.6 L MCV 99.7 MCH 31.4 MCHC 31.5 L RDW 16.1 H Plt Count 122 L MPV 10.7 Immature Gran % 1.8 Seg Neutrophils % 89.3 Lymphocytes % 3.0 Monocytes % 5.0 Eosinophils % 0.7 Basophils % 0.2 Neutrophils # 12.8 H Lymphocytes # 0.4 L Monocytes # 0.7 Eosinophils # 0.1 Basophils # 0.0 Nucleated RBCs/100 WBC 0.1 H Sodium 135 L Potassium 4.2 Chloride 102 Carbon Dioxide 25 BUN 41 H Creatinine 0.74 Est GFR ( Amer) > 60 Est GFR (Non-Af Amer) > 60 BUN/Creatinine Ratio 55 H Glucose 137 H POC Glucose 133 H Calculated Osmolality 292 Calcium 8.4 L 05/02/18 05/01/18 05/01/18 00:12 16:48 07:47 WBC RBC Hgb Hct MCV MCH MCHC RDW Plt Count MPV Immature Gran % Seg Neutrophils % Lymphocytes % Monocytes % Eosinophils % Basophils % Neutrophils # Lymphocytes # Monocytes # Eosinophils # Basophils # Nucleated RBCs/100 WBC Sodium Potassium Chloride Carbon Dioxide BUN Creatinine Est GFR ( Amer) Est GFR (Non-Af Amer) BUN/Creatinine Ratio Glucose POC Glucose 117 H 107 H 139 H Calculated Osmolality Calcium 05/01/18 04/30/18 05:09 22:51 WBC RBC Hgb Hct MCV MCH MCHC RDW Plt Count MPV Immature Gran % Seg Neutrophils % Lymphocytes % Monocytes % Eosinophils % Basophils % Neutrophils # Lymphocytes # Monocytes # Eosinophils # Basophils # Nucleated RBCs/100 WBC Sodium Potassium Chloride Carbon Dioxide BUN Creatinine Est GFR ( Amer) Est GFR (Non-Af Amer) BUN/Creatinine Ratio Glucose POC Glucose 146 H 144 H Calculated Osmolality Calcium - Impressions ITS Impressions Chest CTA 04/22/18 12:37 IMPRESSION: Status post esophagectomy with gastric pull-through. Moderate bilateral pleural effusions with increased attenuation of the pleural fluid on the right compatible with a hemothorax. There is a small amount of air in both hemithoraces related to recent surgery. Compressive bibasilar atelectasis. No evidence of pulmonary embolus. D/ / 04/22/2018 13:32:42 Arben Vazquez MD [facility] Interpreting Provider: Arben Vazquez MD Chest X-Ray 04/22/18 13:36 IMPRESSION: 1. Line and tube placements as described. 2. Minimal effusions with bibasilar atelectasis. D/ / 04/22/2018 14:10:00 Florentin Sanchez MD / earnold Interpreting Provider: Florentin Sanchez MD Chest X-Ray 04/23/18 08:00 IMPRESSION: Bilateral chest tubes. No definite pneumothorax. Mild pulmonary vascular congestion. Minimal pleural effusion at the left lung base. D/ / Mario Chen MD / Mario Chen MD Interpreting Provider: Mario Chen MD Chest X-Ray 04/24/18 08:00 IMPRESSION: Stable exam with no pneumothorax. D/ / 04/24/2018 08:38:23 Mike Peacock MD / estrella Interpreting Provider: Mike Peacock MD Chest X-Ray 04/25/18 08:00 IMPRESSION: Bilateral chest tubes remain in place with no visible pneumothorax. Slightly increased bibasilar opacities, favored to represent atelectasis. D/ / Bogdan Hwang MD / Bogdan Hwang MD Interpreting Provider: Bogdan Hwang MD Chest X-Ray 04/26/18 08:00 IMPRESSION: Essentially stable chest. Left-sided chest tube with tiny left apical pneumothorax. Atelectasis or infiltrate in the lung bases. Left pleural effusion. Follow up to resolution is suggested. D/ / 04/26/2018 07:35:33 Roselyn Ruiz MD / [email or web address] Interpreting Provider: Roselyn Ruiz MD Upper GI Series 04/27/18 07:11 IMPRESSION: 1. Postsurgical change from esophagectomy with gastric pull-through without evidence of leak. D/ / Wes Carmona MD / Wes Carmona MD Interpreting Provider: Wes Carmona MD Chest X-Ray 04/29/18 06:00 IMPRESSION: Increased pleural effusions and bilateral lung consolidation bilaterally. Postsurgical change from esophagectomy and gastric pull-through D/ / Oleg Ralph MD / Oleg Ralph MD Interpreting Provider: Oleg Ralph MD Chest X-Ray 05/01/18 07:09 IMPRESSION: Increasing small right pleural effusion with adjacent atelectasis. Interval decrease in size of left pleural effusion. D/ / Terri Horton MD / Terri Horton MD Interpreting Provider: Terri Horton MD - Attending Attestation The patient is seen and evaluated with the clinical nurse practitioner in her care plan discussed. I have reviewed the discharge note and this is accurate. She will be discharged home on full liquid diet with nighttime jejunal supplemental feedings no bolus feedings at this time. Return to clinic one week Дмитрий Lennon MD FACS
--- NOTE | 2018-05-02 08:45 | Cardiothoracic Progress Note ---
Date of Encounter: 05/02/18 Time of Encounter: 08:44 - Assessment and plan (1) Esophageal cancer Current Visit: Yes Status: Acute The assessment and plan as outlined above was discussed with the patient and/or family members who expressed understanding and agreement. All questions were answered. home today. 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 All questions were answered. follow up in my office in 2 weeks with a chest xray . - Subjective Interval history: stable over night. happy to go home today. Vital Signs, Last 4 Hours Temp Pulse Resp BP Pulse Ox 05/02/18 07:55 86 05/02/18 07:15 18 95 05/02/18 06:36 97.8 F 93 18 108/58 Oxgyen Flow Rate Oxygen Flow Rate (LPM) 2 Clinical Data, last 8 Hours Output, Urine Amount 400 Weight 04/30/18 05/01/18 05/02/18 23:59 23:59 23:59 Weight 95.7 kg 95.4 kg - Physical Examination General: Conversant, No Apparent Distress HEENT: Atraumatic, Normocephaly Cardiac: Reg Rate and Rhythm, Normal S1 and S2, No Murmur Incision: Dry/intact dressing Lungs: Normal Breath Sounds Neuro: Alert and responsive, No focal deficits noted, Cranial nerves intact - Labs 05/02/18 04:27 05/02/18 04:27 Lab Results, Last 24 hours 05/02/18 05/02/18 04:27 04:27 WBC 14.3 H Hgb 9.0 L Hct 28.6 L Plt Count 122 L Sodium 135 L Potassium 4.2 Chloride 102 Carbon Dioxide 25 BUN 41 H Creatinine 0.74 Glucose 137 H Calcium 8.4 L Consult Discharge Plan - Plan Referrals: Дмитрий Lennon MD [Partnered Physician] - Maia Barksdale CNP [Primary Care Provider] - Alli Kumar MD [Partnered Physician] -
--- NOTE | 2018-05-02 11:27 | Physician Discharge Referral ---
Addendum entered and electronically signed by Sowmya Medina CNP 05/02/18 11:30: Do not aspirate J-tube. There is no need to check residuals and a J-tube because it is post pyloric. Original Note: <Sowmya Medina - Last Filed: 05/02/18 11:25> Home Health/Hosp Referral Info Transfer to: Home Health Attending Provider: Dr. Дмитрий Lennon Provider in Charge Post Discharge: Other (same) - Diagnosis (1) Esophageal cancer Priority: Primary Status: Acute (2) Acute blood loss anemia Priority: Secondary Status: Resolved (3) Hemothorax, postoperative Priority: Secondary Status: Resolved (4) Acute kidney injury Priority: Secondary Status: Resolved (5) DVT prophylaxis Priority: Secondary Status: Acute (6) Severe protein-calorie malnutrition Priority: Secondary Status: Acute (7) Pneumonia Priority: Secondary Status: Acute - Respiratory Orders Smoking Cessation: Smoking cessation has been advised. For more information, call the [place] Tobacco Quit Line at 3-122-JZZENOW. - Dressing/Wound Care Site: Neck and abdomen: May leave open to air or cover with a dry dressing - Diet/Nutrition Diet/Nutrition: List: Nocturnal tube feeds osmolality 1.2 kamla at 120 mL per hour for 12 hours may have full liquid/pured diet by mouth for pleasure only. No carbonation. Crash medications intake with applesauce or putting. Colace is okay to take is a capsule with applesauce or putting. - Activity Activity: List: per PtOt recommendations [facility]SC and [facility] scripts provided - Services Needed Following services are medically necessary services: Nursing, Home Health Aide, Physical Therapy, Occupational Therapy, Home Infusion Home Care Orders: General Surgical Discharge Instructions 1. No pushing, pulling, or lifting greater than 15 lbs for 6 weeks. 2. You may shower beginning today, but no tub baths, soaking, or swimming for 2 weeks. 3. You may resume driving when you are off narcotics,are safe to react in a car, and cleared by home health to do so. 4. Crush medications prior to taking them. Take narcotics as directed. Do not take more narcotics then directed and do not share your narcotics with any other person. Do not drink alcohol while on narcotics. 5. Take stool softeners (Colace) or a water based laxative (Miralax) while taking narcotics. You may hold for loose stools. 6. Report any fevers greater than 100.5F, increase abdominal discomfort, drainage that looks like pus, increased redness or pain at the surgical site, or any vomiting. 7. Report any pain in the calves, shortness of breath, or rapid heartbeat. 8. Follow-up in the office as directed. 9. Take your antibiotics (for Pneumonia)as directed. 10. DO NOT DEVIATE FROM A FULL LIQUID DIET until seen in follow-up by Dr. Lennon and advised to do so. Your by mouth diet is for pleasure. Your tube feeds will supply the primary amount of your nutrition. 11. You may leave your surgical incisions open to air. 12. We will continue Nocturnal tube feeds You will be a high risk for falls. Someone should be with you when you are getting up and walking around. complete the chest x-ray ordered prior to seeing Dr. Wong. - Transfer Medications Prescriptions: Ondansetron ODT [Zofran ODT] 4 mg SL Q4HR PRN #15 tab.rapdis PRN Reason: Postsurgical nausea RX: OxyCODONE/APAP 5/325 [Percocet 5/325 MG] 1 each PO Q6HR PRN 7 Days #28 tablet PRN Reason: mild-moderate pain Docusate Sodium [Colace] 100 mg PO BID PRN #30 capsule PRN Reason: Contstipation levoFLOXacin [Levaquin] 750 mg PO DAILY 7 Days #7 tablet Home Medications: RX: Omeprazole [PriLOSEC] 20 mg PO BIDAC 12/12/17 [History] RX: Lisinopril-HCTZ 10-12.5 [Prinzide 10-12.5] 1 tab PO DAILY 04/21/18 [History] Docusate Sodium [Colace] 100 mg PO BID PRN #30 capsule 05/02/18 [Rx] Ondansetron ODT [Zofran ODT] 4 mg SL Q4HR PRN #15 tab.rapdis 05/02/18 [Rx] RX: OxyCODONE/APAP 5/325 [Percocet 5/325 MG] 1 each PO Q6HR PRN 7 Days #28 tablet 05/02/18 [Rx] levoFLOXacin [Levaquin] 750 mg PO DAILY 7 Days #7 tablet 05/02/18 [Rx] Allergies/Adverse Reactions: Allergy/AdvReac Type Severity Reaction Status Date / Time No Known Allergies Allergy Verified 04/13/18 09:45 Certification: Further, I certify that my clinical findings support that this patient is homebound (i.e. absences from home require considerable and taxing effort and are for medical reasons or scientology services or infrequently or short duration when for other reasons) because: Homebound Reason: Patient requires assistance of a person or device to safely leave home, Post-surgery restriction and or conditions limit ability to leave home, Leaving home requires considerable and taxing effort due to condition Attestation: My signature below is to certify that this patient is under my care and that I, or nurse practitioner, or a physician's assistant buyer working with me, has a vxba-be-fumb encounter with this patient. <Дмитрий Lennon - Last Filed: 05/02/18 15:37> - Diagnosis (1) Acute blood loss anemia Status: Acute (2) Severe protein-calorie malnutrition Status: Acute (3) Esophageal cancer Status: Acute - Respiratory Orders Smoking Cessation: Smoking cessation has been advised. For more information, call the [place] Tobacco Quit Line at 1-510-FKSNNOW. Certification: Further, I certify that my clinical findings support that this patient is homebound (i.e. absences from home require considerable and taxing effort and are for medical reasons or scientology services or infrequently or short duration when for other reasons) because: Attestation: My signature below is to certify that this patient is under my care and that I, or nurse practitioner, or a physician's assistant buyer working with me, has a xray-vo-wces encounter with this patient.
[2018-05-02] MEDS: OXYCODONE Oral CONC 10 MG/0.5 ML ORAL.SYG SL PRN (13:03)
[2018-05-02 17:08] VITALS: BP 116/58
== END 2018-05-02 18:00 | disposition home health service (06) | DRG 326 ==
LOC: SAMDAY 06:08 → ICNU 14:22 → 2NNU 04-27 20:32
PROVIDERS: ADMIT Surgery; ATTEND Surgery

== ENCOUNTER 2018-05-03 00:26 | Inpatient (IN) ==
[2018-05-03 00:59] LABS: Basophils % 0.2 %; Hematocrit 31.7 % (35.3-44.9); Hemoglobin 10.2 g/dL (11.5-15.4); Lymphocytes # 0.4 K/mcL (0.6-4.6); Lymphocytes % 1.9 %; Mean Corpuscular HGB Conc 32.2 g/dL (31.6-35.5); Mean Corpuscular Hemoglobin 31.9 pg (28.0-33.3); Mean Corpuscular Volume 99.1 fL (83.0-100.0); Mean Platelet Volume 10.3 fL (9.4-12.4); Monocytes # 0.8 K/mcL (0.0-1.3); Monocytes % 4.1 %; Neutrophils # 18.6 K/mcL (1.6-8.9); Platelet Count 146 K/mcL (140-400); Red Cell Distribution Width 15.6 % (11.5-14.5); Segmented Neutrophils % 92.8 %
[2018-05-03] MEDS ORDERED: Piperacillin/Tazobactam 3.375 GM in Water for inj. (sterile) 20 ML 20 ML IVP ONE (01:08)
[2018-05-03] MEDS ORDERED: Levofloxacin 750 MG/150 ML 750 MG/150 ML BAG IVPB ONE (01:08)
--- NOTE | 2018-05-03 01:11 | Emergency Department Note ---
Disposition Clinical Impression: Pleural effusion Pneumonia Qualifiers: Pneumonia type: due to unspecified organism Laterality: right Lung location: unspecified part of lung Qualified Code(s): J18.9 - Pneumonia, unspecified organism Disposition: Admitted As Inpatient Condition: Good Time of Disposition: 03:31 General Adult HPI - General Chief complaint: ED Shortness of Breath/Dyspnea Stated complaint: SoB Time Seen by Provider: 05/03/18 00:35 Source: patient, family, EMS Limitations: no limitations Nursing Notes Reviewed: Yes Vital Signs Reviewed: Yes - History of Present Illness HPI Narrative: Female patient with a history of esophageal cancer who underwent surgery for this approximately [address] Lennon. She is presenting to the emergency department with shortness of breath. Her course here was complicated by bilateral hemothoraces as well as pneumonia. She was treated with bilateral chest tubes which had a bloody drainage. These were removed 2 days ago. Vince padilla had a repeat chest x-ray which did show mild effusion however significantly resolved. Patient does not use oxygen at home. She was a previous smoker but does not smoke at this time. Reports increasing shortness of breath over the past 2 days. EMS brought patient in a reported an oxygen sat uration around 88% at home. They placed her on 2 L. On 2 L she has been doing well with an oxygen saturation around 98%. Patient denies any chest pain does report some clear drainage to her abdominal wound. She denies any abdominal pain. She does report shortness of breath. Pain Scale: 0 - Related Data Home Medications Medication Instructions Recorded Confirmed Omeprazole [PriLOSEC] 20 mg PO BIDAC 12/12/17 05/03/18 Lisinopril-HCTZ 10-12.5 [Prinzide 1 tab PO DAILY 04/21/18 05/03/18 10-12.5] Previous Rx's Medication Instructions Recorded Docusate Sodium [Colace] 100 mg PO BID PRN #30 capsule 05/02/18 Ondansetron ODT [Zofran ODT] 4 mg SL Q4HR PRN #15 tab.rapdis 05/02/18 OxyCODONE/APAP 5/325 [Percocet 1 each PO Q6HR PRN 7 Days #28 05/02/18 5/325 MG] tablet levoFLOXacin [Levaquin] 750 mg PO DAILY 7 Days #7 tablet 05/02/18 Allergies Allergy/AdvReac Type Severity Reaction Status Date / Time No Known Allergies Allergy Verified 04/13/18 09:45 All systems ED: reviewed and negative except as stated. Review of Systems: As Per HPI Constitutional: Denies: fever Cardiovascular: Denies: chest pain Respiratory: Reports: dyspnea Gastrointestinal: Denies: abdominal pain, nausea, vomiting, diarrhea Musculoskeletal: Reports: back pain (Chronic) Past Medical History - Past Medical History Attestation: Yes The following information was validated with the patient. Source: patient Medical history: Reports: cancer, GERD, hypertension Surgical history: Reports: herniorrhaphy, hysterectomy Psychiatric history: Reports: no psych history - Social History Smoking Status: Former smoker Smokeless Tobacco Status: No Alcohol use: Reports: none Drug use: Reports: none Physical Exam - General Limitations: no limitations General appearance: alert, in distress (Appear short of breath) - Head Head exam: atraumatic, normocephalic, normal inspection - Eye Eye exam: Present: normal appearance, PERRL, EOMI - ENT ENT exam: normal exam, normal oropharynx, mucous membranes moist - Neck Neck exam: Present: normal inspection, full ROM, trachea midline - Chest Chest inspection: Present: normal inspection, symmetric chest wall rise - Respiratory Respiratory exam: Present: respiratory distress, accessory muscle use, other (Rhonchi to the right. Patient dyspneic appearing using accessory muscles to breathe.) - Cardiovascular Cardiovascular exam: Present: regular rate, normal rhythm, normal heart sounds - Abdominal Exam Abdominal exam: Present: soft, Non-Tender, other (Incision. Serosanguineous discharge. Some mild erythema to the right lateral aspect of incision. Does not appear to be grossly infected.). Absent: tenderness, distention, guarding, rebound, rigidity - Extremities Exam Extremities exam: Present: normal inspection, full ROM, normal capillary refill. Absent: tenderness, pedal edema, calf tenderness - Neurological Exam Neurological exam: Present: alert, oriented X3 - Psychiatric Psychiatric exam: Present: normal affect, normal mood - Skin Skin exam: Present: warm, dry, intact, normal color. Absent: cyanosis, craig phoresis Course Course Narrative: Patient with rhonchi throughout the right lobe. Decreased lung sounds in the right lower lobe. Requiring oxygen to maintain an oxygen saturation in the high 90s. Is not on oxygen at home. Was recently discharged approximately 6 hours ago for being admitted for her esophageal cancer surgery. Patient reports that her shortness of breath is gotten increasingly worse and she was at home. She was sent home on Levaquin. Chest x-ray on the did appear to be significantly improved from the chest x-ray we had today. Does appear as if she has a pleural effusion as well as superimposed pneumonia. We will be treating patient with Levaquin and Zosyn and vancomycin here. We will get a CT as well. Patient has a leukocytosis that is new from yesterday as well. Patient's hemoglobin does appear to be improving. We will be admitting patient to the hospital for increased oxygen demand as well as respiratory distress and right sided pneumonia and pleural effusion. - Reevaluation(s) Reevaluation #1: Patient CT showed moderate sized loculated pleural effusion on the right as well as a small left-sided pleural effusion. We will continue with admission to the hospital here. - Consultations Consultation #1: I spoke with Dr. bladimir pickering. He is requesting a CT of patient's chest feel this is reasonable. We will initially concerned that the patient would be able to lay flat however patient states that she can receive some pain medication for her back pain she thinks she can lay flat for around 5 minutes. Time: 01:36 Vital Signs Temperature 98.0 F 05/03/18 00:39 Pulse Rate 109 05/03/18 00:39 Respiratory Rate 20 05/03/18 00:39 Blood Pressure 136/69 05/03/18 00:39 O2 Sat by Pulse Oximetry 100 05/03/18 00:39 Temperature 98.0 F 05/03/18 00:39 Pulse Rate 116 05/03/18 02:50 Respiratory Rate 20 05/03/18 02:50 Blood Pressure 92/62 05/03/18 02:50 O2 Sat by Pulse Oximetry 95 05/03/18 02:50 Oxygen Delivery Oxygen Delivery Nasal Cannula Medical Decision Making - Medical Records Medical records reviewed: Yes I reviewed the patient's medical records. - Lab Data Lab results reviewed: Yes I reviewed the patient's lab results. Result diagrams: 05/03/18 00:45 05/03/18 00:45 Lab Results 05/03/18 05/03/18 05/03/18 Range/Units 00:45 00:45 00:45 WBC 20.0 H (4.3-11.1) K/mcL RBC 3.20 L (3.82-4.97) M/mcL Hgb 10.2 L (11.5-15.4) g/dL Hct 31.7 L (35.3-44.9) % MCV 99.1 (83.0-100.0) fL MCH 31.9 (28.0-33.3) pg MCHC 32.2 (31.6-35.5) g/dL RDW 15.6 H (11.5-14.5) % Plt Count 146 (140-400) K/mcL MPV 10.3 (9.4-12.4) fL Immature Gran % 1.0 (0-4) % Seg Neutrophils % 92.8 % Lymphocytes % 1.9 % Monocytes % 4.1 % Eosinophils % 0.0 % Basophils % 0.2 % Neutrophils # 18.6 H (1.6-8.9) K/mcL Lymphocytes # 0.4 L (0.6-4.6) K/mcL Monocytes # 0.8 (0.0-1.3) K/mcL Eosinophils # 0.0 (0.0-0.6) K/mcL Basophils # 0.0 (0.0-0.2) K/mcL Sodium 133 L (136-145) mEq/L Potassium 4.7 (3.5-5.1) mEq/L Chloride 100 (98-107) mEq/L Carbon Dioxide 25 (23-29) mEq/L BUN 45 H (8-23) mg/dL Creatinine 0.76 (0.60-1.20) mg/dL Est GFR ( Amer) > 60 (> 60) Est GFR (Non-Af Amer) > 60 (> 60) BUN/Creatinine Ratio 59 H (6-26) Glucose 119 H (70-105) mg/dL Calculated Osmolality 289 (280-300) Lactic Acid 1.1 (0.5-2.2) mmol/L Calcium 8.6 (8.6-10.3) mg/dL Troponin I < 0.03 (< 0.04) ng/mL B-Natriuretic Peptide (Less than 100) pg/mL 05/03/18 Range/Units 00:45 WBC (4.3-11.1) K/mcL RBC (3.82-4.97) M/mcL Hgb (11.5-15.4) g/dL Hct (35.3-44.9) % MCV (83.0-100.0) fL MCH (28.0-33.3) pg MCHC (31.6-35.5) g/dL RDW (11.5-14.5) % Plt Count (140-400) K/mcL MPV (9.4-12.4) fL Immature Gran % (0-4) % Seg Neutrophils % % Lymphocytes % % Monocytes % % Eosinophils % % Basophils % % Neutrophils # (1.6-8.9) K/mcL Lymphocytes # (0.6-4.6) K/mcL Monocytes # (0.0-1.3) K/mcL Eosinophils # (0.0-0.6) K/mcL Basophils # (0.0-0.2) K/mcL Sodium (136-145) mEq/L Potassium (3.5-5.1) mEq/L Chloride (98-107) mEq/L Carbon Dioxide (23-29) mEq/L BUN (8-23) mg/dL Creatinine (0.60-1.20) mg/dL Est GFR ( Amer) (> 60) Est GFR (Non-Af Amer) (> 60) BUN/Creatinine Ratio (6-26) Glucose (70-105) mg/dL Calculated Osmolality (280-300) Lactic Acid (0.5-2.2) mmol/L Calcium (8.6-10.3) mg/dL Troponin I (< 0.04) ng/mL B-Natriuretic Peptide 103 H (Less than 100) pg/mL - Radiology Data Radiology results reviewed: Yes I reviewed the patient's radiology results. Chest X-Ray 05/03/18 00:35 IMPRESSION: Marked increase in abnormal opacity throughout the right lung since the previous exam most suggestive of an enlarging right pleural effusion and volume loss. Consider CT chest for further evaluation. D/ / Tha Ramirez MD / Tha Ramirez MD Interpreting Provider: Tha Ramirez MD Chest CT 05/03/18 01:35 IMPRESSION: 1. Status post esophagectomy with gastric pull-through. 2. Loculated right pleural effusion with tiny left pleural effusion. Bilateral airspace disease probably represents atelectasis though pneumonia cannot be excluded. D/ / Braden Mariee MD / Braden Mariee MD Interpreting Provider: Braden Mariee MD - EKG Data EKG #1 EKG attestation: Yes I reviewed and interpreted this EKG. EKG results narrative: Sinus tachycardia at a rate of 109. MI interval is 129. QRS duration is 75. QT is 316. QTC is 426. Poor R-wave progression. This does appear to worsen since the previous EKG dated 04/21/2018. Patient did have T-wave inversion in leads V1 and V2 and V3. These do appear to have resolved in leads V2 and V3.
[2018-05-03 01:22] LABS: BUN/Creatinine Ratio 59 (6-26); Blood Urea Nitrogen 45 mg/dL (8-23); Calcium 8.6 mg/dL (8.6-10.3); Carbon Dioxide 25 mEq/L (23-29); Chloride 100 mEq/L (98-107); Glucose 119 mg/dL (70-105); Osmolality,Calculated 289 (280-300); Potassium 4.7 mEq/L (3.5-5.1); Sodium 133 mEq/L (136-145); eGFR For Non-African Americans > 60 (> 60)
[2018-05-03] MEDS ORDERED: *HR* HYDROmorphone (PF) 1 MG/ML SYRINGE IVP ONE (01:22)
[2018-05-03 01:23] LABS: Troponin I < 0.03 ng/mL (< 0.04)
[2018-05-03] MEDS ORDERED: *HR* FentaNYL (PF) 100 MCG/2 ML VIAL IVP ONE (02:53)
--- NOTE | 2018-05-03 03:41 | Emergency Department Note ---
Disposition Clinical Impression: Pleural effusion Pneumonia Qualifiers: Pneumonia type: due to unspecified organism Laterality: right Lung location: unspecified part of lung Qualified Code(s): J18.9 - Pneumonia, unspecified organism Disposition: Admitted As Inpatient Condition: Fair General Adult HPI - General Chief complaint: ED Shortness of Breath/Dyspnea Stated complaint: SoB Time Seen by Provider: 05/03/18 00:35 Source: patient, family, EMS Limitations: no limitations Nursing Notes Reviewed: Yes Vital Signs Reviewed: Yes - History of Present Illness Pain Scale: 0 - Related Data Home Medications Medication Instructions Recorded Confirmed Omeprazole [PriLOSEC] 20 mg PO BIDAC 12/12/17 05/03/18 Lisinopril-HCTZ 10-12.5 [Prinzide 1 tab PO DAILY 04/21/18 05/03/18 10-12.5] Previous Rx's Medication Instructions Recorded Docusate Sodium [Colace] 100 mg PO BID PRN #30 capsule 05/02/18 Ondansetron ODT [Zofran ODT] 4 mg SL Q4HR PRN #15 tab.rapdis 05/02/18 OxyCODONE/APAP 5/325 [Percocet 1 each PO Q6HR PRN 7 Days #28 05/02/18 5/325 MG] tablet levoFLOXacin [Levaquin] 750 mg PO DAILY 7 Days #7 tablet 05/02/18 Allergies Allergy/AdvReac Type Severity Reaction Status Date / Time No Known Allergies Allergy Verified 04/13/18 09:45 Constitutional: Denies: fever Cardiovascular: Denies: chest pain Respiratory: Reports: dyspnea Gastrointestinal: Denies: abdominal pain, nausea, vomiting, diarrhea Musculoskeletal: Reports: back pain (Chronic) Past Medical History - Past Medical History Medical history: Reports: cancer, GERD, hypertension Surgical history: Reports: herniorrhaphy, hysterectomy Psychiatric history: Reports: no psych history - Social History Smoking Status: Former smoker Smokeless Tobacco Status: No Alcohol use: Reports: none Drug use: Reports: none Physical Exam - General Limitations: no limitations General appearance: alert, in distress (Appear short of breath) Course Vital Signs Temperature 98.0 F 05/03/18 00:39 Pulse Rate 109 05/03/18 00:39 Respiratory Rate 20 05/03/18 00:39 Blood Pressure 136/69 05/03/18 00:39 O2 Sat by Pulse Oximetry 100 01/30/19 00:39 Temperature 98.0 F 05/03/18 00:39 Pulse Rate 116 05/03/18 02:50 Respiratory Rate 20 05/03/18 02:50 Blood Pressure 92/62 05/03/18 02:50 O2 Sat by Pulse Oximetry 95 05/03/18 02:50 Oxygen Delivery Oxygen Delivery Nasal Cannula Medical Decision Making - Medical Records Medical records reviewed: Yes I reviewed the patient's medical records. - Lab Data Lab results reviewed: Yes I reviewed the patient's lab results. Result diagrams: 05/03/18 00:45 05/03/18 00:45 Lab Results 05/03/18 05/03/18 05/03/18 Range/Units 00:45 00:45 00:45 WBC 20.0 H (4.3-11.1) K/mcL RBC 3.20 L (3.82-4.97) M/mcL Hgb 10.2 L (11.5-15.4) g/dL Hct 31.7 L (35.3-44.9) % MCV 99.1 (83.0-100.0) fL MCH 31.9 (28.0-33.3) pg MCHC 32.2 (31.6-35.5) g/dL RDW 15.6 H (11.5-14.5) % Plt Count 146 (140-400) K/mcL MPV 10.3 (9.4-12.4) fL Immature Gran % 1.0 (0-4) % Seg Neutrophils % 92.8 % Lymphocytes % 1.9 % Monocytes % 4.1 % Eosinophils % 0.0 % Basophils % 0.2 % Neutrophils # 18.6 H (1.6-8.9) K/mcL Lymphocytes # 0.4 L (0.6-4.6) K/mcL Monocytes # 0.8 (0.0-1.3) K/mcL Eosinophils # 0.0 (0.0-0.6) K/mcL Basophils # 0.0 (0.0-0.2) K/mcL Sodium 133 L (136-145) mEq/L Potassium 4.7 (3.5-5.1) mEq/L Chloride 100 (98-107) mEq/L Carbon Dioxide 25 (23-29) mEq/L BUN 45 H (8-23) mg/dL Creatinine 0.76 (0.60-1.20) mg/dL Est GFR ( Amer) > 60 (> 60) Est GFR (Non-Af Amer) > 60 (> 60) BUN/Creatinine Ratio 59 H (6-26) Glucose 119 H (70-105) mg/dL Calculated Osmolality 289 (280-300) Lactic Acid 1.1 (0.5-2.2) mmol/L Calcium 8.6 (8.6-10.3) mg/dL Troponin I < 0.03 (< 0.04) ng/mL B-Natriuretic Peptide (Less than 100) pg/mL 05/03/18 Range/Units 00:45 WBC (4.3-11.1) K/mcL RBC (3.82-4.97) M/mcL Hgb (11.5-15.4) g/dL Hct (35.3-44.9) % MCV (83.0-100.0) fL MCH (28.0-33.3) pg MCHC (31.6-35.5) g/dL RDW (11.5-14.5) % Plt Count (140-400) K/mcL MPV (9.4-12.4) fL Immature Gran % (0-4) % Seg Neutrophils % % Lymphocytes % % Monocytes % % Eosinophils % % Basophils % % Neutrophils # (1.6-8.9) K/mcL Lymphocytes # (0.6-4.6) K/mcL Monocytes # (0.0-1.3) K/mcL Eosinophils # (0.0-0.6) K/mcL Basophils # (0.0-0.2) K/mcL Sodium (136-145) mEq/L Potassium (3.5-5.1) mEq/L Chloride (98-107) mEq/L Carbon Dioxide (23-29) mEq/L BUN (8-23) mg/dL Creatinine (0.60-1.20) mg/dL Est GFR ( Amer) (> 60) Est GFR (Non-Af Amer) (> 60) BUN/Creatinine Ratio (6-26) Glucose (70-105) mg/dL Calculated Osmolality (280-300) Lactic Acid (0.5-2.2) mmol/L Calcium (8.6-10.3) mg/dL Troponin I (< 0.04) ng/mL B-Natriuretic Peptide 103 H (Less than 100) pg/mL - Radiology Data Radiology results reviewed: Yes I reviewed the patient's radiology results. Chest X-Ray 05/03/18 00:35 IMPRESSION: Marked increase in abnormal opacity throughout the right lung since the previous exam most suggestive of an enlarging right pleural effusion and volume loss. Consider CT chest for further evaluation. D/ / Tha Ramirez MD / Tha Ramirez MD Interpreting Provider: Tha Ramirez MD Chest CT 05/03/18 01:35 IMPRESSION: 1. Status post esophagectomy with gastric pull-through. 2. Loculated right pleural effusion with tiny left pleural effusion. Bilateral airspace disease probably represents atelectasis though pneumonia cannot be excluded. D/ / Braden Mariee MD / Braden Mariee MD Interpreting Provider: Braden Mariee MD - EKG Data EKG #1 EKG attestation: Yes I reviewed and interpreted this EKG. EKG results narrative: EKG shows sinus tachycardia with ventricular rate of 109. Poor R wave progression suggesting possible anterior lateral infarct, probably old. No acute ST elevation or depression. Critical Care Time Critical Care Time: Yes Total Critical Care Time: 40 Attestation: Critical care performed: Time is exclusive of separately billable procedures. Time includes: direct patient care, patient reassessment, coordination of patient care, interpretation of data (laboratory data, radiology data, and respiratory data), review of patient's medical records, medical consultation and documentation of patient care. Procedures included in critical care time: Procedures excluded from critical care time: Attestation Statement - Attestation Attestation: IKali MD, personally evaluated this patient and discussed their management with the resident physician. I reviewed the resident's note and agree with the documented findings, medical decision making, and plan of care. 67-year-old female persisted emergency department with a complaint of increasing shortness of breath over the past few days. Patient recently had esophageal resection for cancer. She had bilateral chest tubes. She was just discharged from the hospital about 6 PM this evening which is a little over 6 hours prior to this ER visit. She states that she was getting more short of breath while in the hospital over the last couple days but became acutely worse after going home tonight. She is not on home oxygen. No fever. No chest pain. Some increased drainage from her upper abdominal incisions. On examination patient is a well-developed well-nourished elderly female in no acute distress. She is alert and oriented 3. There is no cyanosis or diaphoresis. Breath sounds are markedly decreased on the right. Heart regular with a mild tachycardia. Abdomen soft with present bowel sounds. Chest x-ray shows increased density throughout the right lung. CT was recommended and obtained which showed loculated pleural effusions. Cannot rule out pneumonia. Labs reviewed. EKG shows sinus tachycardia with no acute ischemic changes. The hospitalist, Dr. Silver, was consulted and accepted admission of the patient.
[2018-05-03] MEDS ORDERED: Naloxone 0.4 MG/ML INJ IVP PRN ×2 (04:27→12:17)
[2018-05-03] MEDS ORDERED: 0.9 % Sodium Chloride 1,000 ML IVC SCH (04:30)
--- NOTE | 2018-05-03 04:51 | Internal Med History&Physical ---
<Deon Serna - Last Filed: 05/03/18 06:30> Date of Encounter: 05/03/18 Internal Medicine - H&P: HPI History of present illness: Ms. Lobo is a 67 year old female presented to the ED because of her shortness of breath. Patient recently had a surgery for her esophageal cancer approximately 11 days ago which was complicated by bilateral hemothoraces as well as pneumonia. Patient had bilateral chest tube was placed to help with the bloody drainage which was removed 2 days ago. She endorses that she has been having shortness of breath ever since she went home today after her surgery . Squad had to put the patient on 2 L of oxygen and she was satting at 88%. Patient denies any history of COPD, asthma no history of pneumonia, CHF, cirrhosis, or kidney disease. Site of her of surgical incision looks clean although she did have some serosanguineous discharge from her abdominal incisio n. At this moment patient endorses a pain of 3 on a scale of 1-10. Initial workup in the ED showed patient was leukocytotic with WBC 20, Hb: 10.2, Neutrophils :18.6, BNP : 103. Patient chest x-ray showed the marked increase in abnormal opacity to the right lung. Chest CT showed a loculated pleural right pleural effusion with tiny left pleural effusion. There was also evidence of bilateral air space disease probably representing atelectasis through pneumonia. Owing to concerns of pneumonia and pleural effusion patient was admitted to the floor for further management. Past Med Surg Social Fam HX - Past Medical History Medical history: cancer, GERD, hypertension Additional medical history: esophageal cancer Psychiatric history: no psych history - Past Surgical History Surgical History: herniorrhaphy, hysterectomy Additional surgical history: Esophagus stretched. EGD. COLONOSCOPY - Social History Smoking Status: Former smoker Smokeless Tobacco Status: No Alcohol use: none Drug use: none - Family History Mother Living Status: Internal Medicine - H&P: Meds Omeprazole [PriLOSEC] 20 mg PO BIDAC 12/12/17 [History] Lisinopril-HCTZ 10-12.5 [Prinzide 10-12.5] 1 tab PO DAILY 04/21/18 [History] Docusate Sodium [Colace] 100 mg PO BID PRN #30 capsule 05/02/18 [Rx] Ondansetron ODT [Zofran ODT] 4 mg SL Q4HR PRN #15 tab.rapdis 05/02/18 [Rx] OxyCODONE/APAP 5/325 [Percocet 5/325 MG] 1 each PO Q6HR PRN 7 Days #28 tablet 05/02/18 [Rx] levoFLOXacin [Levaquin] 750 mg PO DAILY 7 Days #7 tablet 05/02/18 [Rx] Allergy/AdvReac Type Severity Reaction Status Date / Time No Known Allergies Allergy Verified 04/13/18 09:45 All Systems PM: A 10-system review of systems was performed and is negative for pertinent findings except as documented above in the HPI. - Constitutional Constitutional: no fever(s) - Cardiovascular Cardiovascular ROS IM: no chest pain - Respiratory Respiratory: dyspnea, no hemoptysis - Gastrointestinal Gastrointestinal: no change in bowel habits - Constitutional Vitals: Temp Pulse Resp BP Pulse Ox 98.4 F 111 22 130/75 93 05/03/18 04:08 05/03/18 04:08 05/03/18 04:08 05/03/18 04:08 05/03/18 04:08 Exam: Gen.: Vitals noted. moderate distress. Alert, awake and oriented * [address], [address], and time, well developed, well-nourished resting comfortably in bed. Pleasant. HEENT: oropharynx clear, Normocephalic, atraumatic, MMM Neck: supple, no JVD, no lymphadenopathy, no carotid bruit. Cardiac: RRR, no murmur, +S1/S2, No BLE edema, PMI non-displaced Pulmonary:ronchi in the right lobe, decreased breath sounds R> L. Abdomen: soft, nontender, BS noted, no guarding, No organomegaly, no pulsatile masses, site of surgical incision looks good with no discharge Skin: warm and dry, no visible lesions. Feels warm, clammy, no rashes, no lesions, no erythema MSK: ROM not assessed. no joint swelling noted, gait not assessed while in bed. Non tender calf or clubbing, no cyanosis/clubbing. Bilateral low nonpitting edema Psych: Appropriate mood and behavior, normal speech. Internal Med - H&P Results - Labs CBC & Chem 7: 05/03/18 00:45 05/03/18 00:45 Labs: Short CBC 05/03/18 Range/Units 00:45 WBC 20.0 H (4.3-11.1) K/mcL Hgb 10.2 L (11.5-15.4) g/dL Hct 31.7 L (35.3-44.9) % Plt Count 146 (140-400) K/mcL Neutrophils # 18.6 H (1.6-8.9) K/mcL BMP 05/03/18 00:45 Sodium 133 L Potassium 4.7 Chloride 100 Carbon Dioxide 25 BUN 45 H Creatinine 0.76 Glucose 119 H Calcium 8.6 Cardiac Enzymes 05/03/18 Range/Units 00:45 Troponin I < 0.03 (< 0.04) ng/mL - Impressions ITS Impressions Chest X-Ray 05/03/18 00:35 IMPRESSION: Marked increase in abnormal opacity throughout the right lung since the previous exam most suggestive of an enlarging right pleural effusion and volume loss. Consider CT chest for further evaluation. D/ / Tha Ramirez MD / Tha Ramirez MD Interpreting Provider: Tha Ramirez MD Chest CT 05/03/18 01:35 IMPRESSION: 1. Status post esophagectomy with gastric pull-through. 2. Loculated right pleural effusion with tiny left pleural effusion. Bilateral airspace disease probably represents atelectasis though pneumonia cannot be excluded. D/ / Braden Mariee MD / Braden Mariee MD Interpreting Provider: Braden Mariee MD - Assessment and plan (1) Sepsis Current Visit: Yes Status: Acute Assessment and plan: -Likely due to patient's pneumonia in the right lung. Patient also has undiagnosed baseline emphysema because of her extensive history of smoking which she quit a year ago. -On physical exam patient has decreased breath sounds right lower lobe along with some rhonchi throughout the right lobe. The surgical incision does not look infected and there is no evidence of serosanguineous discharge. -She currently has a WBC of 20, tachcyardic with HR: 110, RR: 22. currently meeting 3/4 SIRS criteria. -Currently patient is on vancomycin and Zosyn . Will hold off on Levaquin because of prolonged QTc (483). (2) Pleural effusion Current Visit: Yes Status: Acute Assessment and plan: -Patient's CT showed loculated right pleural effusion with tiny left pleural effusion. -Currently she is on 3 L of oxygen satting at 93% -Given 40 IV Lasix to help with the pleural effusion. -Will need of pulmonology/cardiothoracic consult if patient's respiratory function does not improve in the next couple hours (3) Pneumonia Current Visit: Yes Status: Acute Assessment and plan: -Recent CT of the chest demonstrated bilateral airspace disease probably repre senting atelectasis/ pneumonia. -Typically does not have any home oxygen requirement but currently she is on 3 L of oxygen satting at 93% -On physical exam she had decreased breath sounds more on the right as compared to the left along with rhonchi in the right lung lou. -Patient is not febrile, but is leukocytotic (20) with neutrophils (18.6) -Currently on a broad-spectrum antibiotic vancomycin, Zosyn and Levaquin. Qualifiers: Pneumonia type: due to unspecified organism Laterality: right Lung location: unspecified part of lung Qualified Code(s): J18.9 - Pneumonia, unspecified organism (4) History of esophagectomy Current Visit: No Status: Acute Assessment and plan: -Patient underwent transhiatal esophagectomy with feeding jejunostomy on 04/21. -Postoperative period was complicated by hemothorax and patient had bilateral chest tube placement. -Site of incision looks good with no evidence of any serosangunus discharge (5) Edema Current Visit: Yes Status: Acute Assessment and plan: -Patient presents to the ED with the bilateral edema. She endorses no history of any CHF or any other cardiovascular pathology/ liver /kidney disease. Patient has not had an echocardiogram recently to look for any evidence of chamber abnormalities/ septal defects/ valvular abnormalities. -Echocardiogram pending. Lasix 40 mg IV given to help with the edema. (6) DVT prophylaxis Current Visit: No Status: Acute Assessment and plan: Patient recently underwent surgery which was complicated by development of hemothorax therefore is not an indication for chemical DVT prophylaxis therefore she'll get EPCDs. - Time Spent With Patient Total time spent is greater than 50% in coordination of care (as documented) at patient's floor/unit and/or counseling patient: <Gaston Castillo - Last Filed: 05/03/18 06:42> Date of Encounter: 05/03/18 Time of Encounter: 05:00 Internal Medicine - H&P: [facility] History of present illness: Ms. Lobo is a 67 year old female All Systems PM: A 10-system review of systems was performed and is negative for pertinent findings except as documented above in the HPI. - Constitutional Vitals: Temp Pulse Resp BP Pulse Ox 98.4 F 111 15 130/75 93 05/03/18 04:08 05/03/18 04:08 05/03/18 05:25 05/03/18 04:08 05/03/18 05:25 Internal Med - H&P Results - Labs CBC & Chem 7: 05/03/18 00:45 05/03/18 00:45 Labs: Short CBC 05/03/18 Range/Units 00:45 WBC 20.0 H (4.3-11.1) K/mcL Hgb 10.2 L (11.5-15.4) g/dL Hct 31.7 L (35.3-44.9) % Plt Count 146 (140-400) K/mcL Neutrophils # 18.6 H (1.6-8.9) K/mcL BMP 05/03/18 00:45 Sodium 133 L Potassium 4.7 Chloride 100 Carbon Dioxide 25 BUN 45 H Creatinine 0.76 Glucose 119 H Calcium 8.6 Cardiac Enzymes 05/03/18 Range/Units 00:45 Troponin I < 0.03 (< 0.04) ng/mL - Impressions ITS Impressions Chest X-Ray 05/03/18 00:35 IMPRESSION: Marked increase in abnormal opacity throughout the right lung since the previous exam most suggestive of an enlarging right pleural effusion and volume loss. Consider CT chest for further evaluation. D/ / Tha Ramirez MD / Tha Ramirez MD Interpreting Provider: Tha Ramirez MD Chest CT 05/03/18 01:35 IMPRESSION: 1. Status post esophagectomy with gastric pull-through. 2. Loculated right pleural effusion with tiny left pleural effusion. Bilateral airspace disease probably represents atelectasis though pneumonia cannot be excluded. D/ / Braden Mariee MD / Braden Mariee MD Interpreting Provider: Braden Mariee MD - Assessment and plan (1) History of esophagectomy Current Visit: No Status: Acute (2) DVT prophylaxis Current Visit: No Status: Acute (3) Pneumonia Current Visit: Yes Status: Acute Qualifiers: Pneumonia type: due to unspecified organism Laterality: right Lung location: unspecified part of lung Qualified Code(s): J18.9 - Pneumonia, unspecified organism (4) Pleural effusion Current Visit: Yes Status: Acute (5) Sepsis Current Visit: Yes Status: Acute (6) Edema Current Visit: Yes Status: Acute - Time Spent With Patient Total time spent is greater than 50% in coordination of care (as documented) at patient's floor/unit and/or counseling patient: - Attending Attestation I performed a history and physical examination of the patient and discussed her management with the resident. I reviewed the resident's note and agree with the assessment and plan of care. In short patient is a 67-year-old female with a significant past medical history of esophageal adenocarcinoma status post transhiatal esophagectomy and jejunostomy on [id number] whose hospital course was complicated by bilateral hemothoraces requiring bilateral chest tube placement, pneumonia and acute blood loss anemia. Patient was discharged around 6 PM on May 02. Patient states she had been getting more short of breath while in the hospital over the last couple days, but became acutely worse shortly after arriving home. EMS was called and patient was found to be satting 88% on room air and in mild respiratory distress. She was subsequently placed on 2 L nasal cannula with improvement in her oxygenation. On arrival patient was afebrile hemodynamically stable with mild tachycardia. Initial laboratory workup was notable for a leukocytosis of 20 which was up from 14.3 on the day of discharge. Patient jayne ed any fever, chills, chest pain or worsening cough. Her initial chest x-ray showed a marked increase in abnormal opacity throughout the right lung from previous exams suggestive of an enlarging right pleural effusion and volume loss. CT scan without contrast was subsequently performed which showed a loculated right pleural effusion and bilateral airspace disease likely representing atelectasis though pneumonia could not be excluded. On my assessment patient was in mild respiratory distress, saturating at 93% on 3-1/2 L. Bilateral expiratory wheeze was noted on physical examination and the patient did have 1-2+ lower extremity edema. Patient was started on broad- spectrum antibiotics due to concern for pneumonia. We will give additional breathing treatment and Lasix. We will obtain an echocardiogram. Pulmonary embolism is also a concern and on the differential given her recent surgery and relative acuity and onset of symptoms. Unfortunately a CTA was not obtained. However, given the acute changes seen on chest x-ray, her hypoxemia is more likely secondary to her pleural effusion versus atelectasis, in addition to possible fluid overload and possible bronchospasm. Given her recent history of bilateral hemothoraces/anemia and surgery, we will hold off on initiating heparin drip for now. We will consult Dr. Jean Baptiste with cardiothoracic surgery.
[2018-05-03] MEDS ORDERED: Furosemide 40 MG/4 ML VIAL IVP ONE (05:05)
[2018-05-03] MEDS ORDERED: Ipratropium/Albuterol Neb 3 ML IH ONE (05:09)
[2018-05-03] MEDS: Ipratropium/Albuterol Neb 3 ML IH SCH ×4 (07:21→19:55)
[2018-05-03] MEDS ORDERED: Piperacillin/Tazobactam 3.375 GM in 0.9 % Sodium Chloride Mini Bag 100 ML IVPB SCH (08:00)
--- NOTE | 2018-05-03 09:19 | Anesthesia Evaluation PreOp ---
Date of Encounter: 05/03/18 Time of Encounter: 09:17 - Past History Planned Operation: VATS on right Cardiac History: HTN Pulmonary History: Former smoker (quit x 8 months) [employer] History: Denies Any Significant HX Other Medical History: GERD, Other (esophageal cancer) Anesthesia History: No Prior Anesthetic Complications, Past Anesthesia ([facility], esophageal resection, hernia) Alcohol Use: none Drug use: none Medications and Allergies Omeprazole [PriLOSEC] 20 mg PO BIDAC 12/12/17 [History] Lisinopril-HCTZ 10-12.5 [Prinzide 10-12.5] 1 tab PO DAILY 04/21/18 [History] Docusate Sodium [Colace] 100 mg PO BID PRN #30 capsule 05/02/18 [Rx] Ondansetron ODT [Zofran ODT] 4 mg SL Q4HR PRN #15 tab.rapdis 05/02/18 [Rx] OxyCODONE/APAP 5/325 [Percocet 5/325 MG] 1 each PO Q6HR PRN 7 Days #28 tablet 05/02/18 [Rx] levoFLOXacin [Levaquin] 750 mg PO DAILY 7 Days #7 tablet 05/02/18 [Rx] Allergy/AdvReac Type Severity Reaction Status Date / Time No Known Allergies Allergy Verified 04/13/18 09:45 - Meds/Allergy Pre-op Review Medications Reviewed: Yes Allergies Reviewed: Yes Beta Blockers on Current Med List: No Anesthesia Results - Labs 05/03/18 00:45 05/03/18 00:45 - Imaging EKG: report reviewed (SINUS RHYTHM LEFT AXIS DEVIATION PROLONGED QT INTERVAL NONSPECIFIC T-WAVE ABNORMALITY) Anesthesia Exam Selected Entries 05/03/18 06:37 Temperature 98.0 F Pulse Rate 111 Respiratory Rate 19 Blood Pressure 106/78 O2 Sat by Pulse Oximetry 91 Oxygen Flow Rate (LPM) 3.5 Oxygen Delivery Method Nasal Cannula Weight: 103kg NPO (# of Hours): 8 - HEENT Pupil (Motor): EOMI Oral Opening: Greater than 3 - [employer]ENTATIVE LOC: Oriented [employer] RE[employer]ENT[employer]IVE Motor: Normal RUE, Normal LUE, Normal RLE, Normal LLE, Normal Face [employer] REPRESENTATIVE Sensory: Normal: RUE, LUE, RLE, LLE, Face - Cardiac Rhythm: Regular Murmur: None - Pulmonary Breath Sounds: bilateral Rhonchi Respiratory Effort: Labored Anesthesia Assess/Plan ASA Score: 4, E Level of consciousness: Cooperative, Oriented Anesthetic Plan: General Monitoring Plan: Standard Monitors Recovery Plan: ICU (patient agrees to GA, aware may require prolonged intubation post op)
[2018-05-03] MEDS ORDERED: Ondansetron 4 MG/2 ML VIAL ONE (09:26)
[2018-05-03] MEDS ORDERED: *HR* Rocuronium Bromide 50 MG/5 ML VIAL ONE (09:26)
[2018-05-03] MEDS ORDERED: Lidocaine -MPF 2% 2 ML VIAL ONE (09:26)
[2018-05-03] MEDS ORDERED: *HR* FentaNYL (PF) 100 MCG/2 ML VIAL ONE (09:26)
[2018-05-03] MEDS ORDERED: Dexamethasone 4 MG/ML VIAL ONE (09:26)
[2018-05-03] MEDS ORDERED: *HR* Succinylcholine 200 MG/10 ML VIAL IVP ONE (09:26)
[2018-05-03] MEDS ORDERED: *HR* Propofol 200 MG/20 ML VIAL IVP ONE (09:26)
[2018-05-03] MEDS ORDERED: EPHEDrine 50 MG/ML VIAL ONE (09:38)
[2018-05-03] MEDS ORDERED: *HR* Vasopressin 20 UNIT/ML VIAL ONE (09:43)
--- NOTE | 2018-05-03 09:48 | Cardiothoracic Consult Note ---
Date of Encounter: 05/03/18 Time of Encounter: 09:46 Assessment and Plan (1) Loculated pleural effusion Current Visit: Yes Status: Acute The assessment and plan as outlined above was discussed with the patient and/or family members who expressed understanding and agreement. All questions were answered. We need to urgently to the operating room. I have spoken with the patient as well as anesthesia and the operating room staff. He need to perform an emergent bronchoscopy with aspiration of the tracheobronchial tree and right thoracoscopy decortication to relieve the trapped lung, allow the lung to reexpand, prevent postoperative pneumonia, and . Preoperative orders have been completed. (2) Acute respiratory failure with hypoxemia Current Visit: Yes Status: Acute The assessment and plan as outlined above was discussed with the patient and/or family members who expressed understanding and agreement. All questions were answered. The patient may require ICU care as well as intubation postoperatively. I hope to avoid postoperative intubation given the above bronchoscopy and aspiration of the tracheobronchial tree with right thoracoscopy decortication. - History of Present Illness Consult date: 05/03/18 Consult reason: loculated effusion Chief complaint: sob History of present illness: Ms. Lobo is a 67 year old female Who recently underwent a trans-hiatal esophagogastro gastrectomy by Dr. Lennon. She was discharged home and now presents with acute onset less than 24 hours of severe respiratory distress at rest. Respiratory failure is not relieved with supplemental oxygen. Chest x-ray and CT scan demonstrate multiple loculated r ight pleural effusions. They are all moderately large in size. Past Med Surg Social Fam HX - Past Medical History Medical history: cancer, GERD, hypertension Additional medical history: esophageal cancer Psychiatric history: no psych history - Past Surgical History Surgical History: herniorrhaphy, hysterectomy Additional surgical history: Esophagus stretched. EGD. COLONOSCOPY - Social History Smoking Status: Former smoker Smokeless Tobacco Status: No Alcohol use: none Drug use: none - Family History Mother Living Status: Medications and Allergies Omeprazole [PriLOSEC] 20 mg PO BIDAC 12/12/17 [History] Lisinopril-HCTZ 10-12.5 [Prinzide 10-12.5] 1 tab PO DAILY 04/21/18 [History] Docusate Sodium [Colace] 100 mg PO BID PRN #30 capsule 05/02/18 [Rx] Ondansetron ODT [Zofran ODT] 4 mg SL Q4HR PRN #15 tab.rapdis 05/02/18 [Rx] OxyCODONE/APAP 5/325 [Percocet 5/325 MG] 1 each PO Q6HR PRN 7 Days #28 tablet 05/02/18 [Rx] levoFLOXacin [Levaquin] 750 mg PO DAILY 7 Days #7 tablet 05/02/18 [Rx] Allergy/AdvReac Type Severity Reaction Status Date / Time No Known Allergies Allergy Verified 04/13/18 09:45 All Systems Review: The remainder of the systems were reviewed and are negative - Constitutional Constitutional: fatigue, weakness - Cardiovascular Cardiovascular: chest pain with exertion, diaphoresis, dyspnea at rest, leg edema - Respiratory Respiratory: cough, dyspnea, wheezing - Psychiatric Psychiatric: anxiety Physical Examination Vital Signs, Last 4 Hours Temp Pulse Resp BP Pulse Ox 05/03/18 07:21 19 91 05/03/18 06:37 98.0 F 111 19 106/78 91 General: Conversant, Other (distressed) HEENT: Atraumatic, Normocephaly, Trachea midline, Other (neck incision healing ) Neck: No JVD Cardiac: Reg Rate and Rhythm, Normal S1 and S2, No Murmur Lungs: Other (moderate rhonchi that does not clear with cough ) Neuro: Alert and responsive, No focal deficits noted, Cranial nerves intact, Motor nerves intact Vascular: Normal capillary refill Abdomen: Soft, Non-tender Extremities: Normal Pulses, Other (trace lower extremity edema ) Results 05/03/18 00:45 05/03/18 00:45 Lab Results, Last 24 hours 05/03/18 05/03/18 05/03/18 00:45 00:45 00:45 WBC 20.0 H Hgb 10.2 L Hct 31.7 L Plt Count 146 Sodium 133 L Potassium 4.7 Chloride 100 Carbon Dioxide 25 BUN 45 H Creatinine 0.76 Glucose 119 H Calcium 8.6 Troponin I < 0.03 B-Natriuretic Peptide 103 H Consult Discharge Plan - Plan Referrals: Дмитрий Lennon MD [Partnered Physician] - 05/16/18 8:55 am Maia Barksdale CNP [Advanced Practice Nurse] - (Office is only open on , Tuesday) Alli Kumar MD [Partnered Physician] -
[2018-05-03] MEDS ORDERED: *HR* Remifentanil 1 MG VIAL IVP ONE (09:53)
[2018-05-03] MEDS ORDERED: *HR* PHENYLEPHRINE 1,000 MCG/10 ML SYRINGE IVP ONE (10:12)
[2018-05-03] MEDS ORDERED: TALC (Sterile Pwd) 4 GM VIAL IX ONE (10:45)
--- NOTE | 2018-05-03 12:16 | Operative Note ---
Date of procedure: 05/03/18 Pre-op diagnosis: pleural effusion Post-op diagnosis: other (chylothorax) Procedure: bronchoscopy with aspiration of the tracheobronchial tree x 2, right thoracotomy decrotication, and chemical pleurodesis Complications: none Anesthesia: LENNIEA Surgeon: Alli Kumar Was there an promotions assistant sales marketing present: No Estimated blood loss (cc): 100 Specimen: tracheal aspiration, pleural fluid culture and labs, pleural peal Condition: critical Disposition: ICU Procedure in Detail: the patient was brought to the operating room emergently and placed on the operating room table in the supine position. Perioperative antibx and dvt prophylaxis on board. After under going general anesthesia, bronchoscopy with aspiration was performed for the acute respiratory failure with hypoxia. Thick white secretions aspirated until clear with sats very slowly recovering from 65% to 90%. She was placed on the OR table in the left lateral position with care to pad all pressure points. Prepped and draped in the usual sterile fashion. A muscle sparring thoracotomy incision made with scalpel and bovie cautery. 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 Chylothorax fluid was sent for labs and cultures. A wedge resection of the right lower lobe performed. The gastric pull up appeared health. I could not identify the thoracic duct leak. The stomach was partially adheared to the spine. Talc was placed to chemical pleurodesis to help seal the thoracic duct leak. 3 chest tubes were placed through separate incisions and secured with 2 ethibond. The surgical counts where incorrect and an intraoperative xray demonstrated NO intrathoracic instruments. The thoracotomy closed with #1 vicryl. The triangle closed with #1 vicryl. A wong drain placed and secured with 2.0 silk. The remaining incision closed with 0 vicryl x 2 and 4.0 monocryl. Sterile dressings applied. After being placed back in the supine position, the single lumen gett placed and a 2nd bronchoscopy with aspiration of thick sections performed with sats improving from 88% to 93%. Patient taken to the ICU.
[2018-05-03] MEDS: 0.9 % Sodium Chloride 1,000 ML IVC SCH ×2 (12:53→18:23)
--- NOTE | 2018-05-03 12:58 | Event Note ---
Date of Encounter: 05/03/18 Time of Encounter: 11:45 H&P reviewed. Patient with recent transhiatal esophagectomy and jejunostomy for esophageal cancer complicated by bilateral hemothoraces and pneumonia was admitted for sepsis with right-sided loculated pleural effusion. Before the patient was evaluated in 2N, she was taken to the OR by thoracic surgery for right thoracotomy decortication and chemical pleurodesis. She was then admitted to ICU on mechanical ventilator with 3 chest tubes, with SpO2 89-90% on FiO2 of 100%. Patient was started on broad spectrum abx overnight already. Spoke to ICU team for transfer of care.
[2018-05-03 13:13] LABS: ABG Base Excess -1 mEq/L (-2 to 3); ABG HCO3 27 mEq/L (21-27); ABG Oxygen Saturation 83 % (95-98); ABG PCO2 58 mmHg (35-45); ABG PH 7.27 pH Units (7.32-7.45); ABG PO2 55 mmHg (85-104); ABG TCO2 28 mEq/L (20-26); Blood Gas Modality VC; Blood Gas PEEP 8 cm H2O; Blood Gas Respiration Rate 14; Blood Gas VT 450 cc
[2018-05-03] MEDS ORDERED: *HR* Midazolam HCl 2 MG/2 ML VIAL IVP ONE (13:15)
[2018-05-03] MEDS ORDERED: Artificial Tears SOLN 15 ML BOTTLE BOTH EYES PRN (13:19)
--- NOTE | 2018-05-03 13:28 | Pulmonology Consult Note ---
<Lety García - Last Filed: 05/03/18 14:31> Date of Encounter: 05/03/18 Time of Encounter: 13:25 Assessment and Plan (1) Acute respiratory failure with hypoxemia Current Visit: Yes Status: Acute Acute respiratory failure with hypoxemia -likely due to s/p OR for bronchoscopy with aspiration, right thoracotomy decrotication but may be contributed to by possible hospital acquired pneumonia -05/03/[address] demonstrating loculated right pleural effusion with tiny left pleural effusion. Bilateral airspace disease suggesting atelectasis or pneumonia. s/p esophagectomy with gastric ulcer. 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 Kumar. -S/p transhiatal esophagectomy and jejunostomy on [id number]. Hospital course was complicated by bilateral hemothoraces requiring bilateral chest tubes, pneumonia, acute blood loss anemia. She was discharged on 05/02/2018. -05/03/[address] demonstrating loculated right pleural effusion with tiny left pleural effusion. Bilateral airspace disease suggesting atelectasis or pneumonia. s/p esophagectomy with gastric ulcer. -05/03/2018 Chest x-ray demonstrating persistent bilateral pulmonary opacities Plan: -continue with [address] on right-sided chest -cardiothoracic surgery following -fluid cultures pending (3) Sepsis Current Visit: Yes Status: Acute Concern for possible sepsis due to patient meeting SIRS criteria: tachycardia 107, WBC 20 -most likely secondary to right-sided loculated chylothorax and possible hospital acquired pneumonia -afebrile, hemodynamically stable -05/03/[address] demonstrating loculated right pleural effusion with tiny left pleural effusion. Bilateral airspace disease suggesting atelectasis or pneumonia. s/p esophagectomy with gastric ulcer. -05/03/2018 Chest x-ray demonstrating persistent bilateral pulmonary opacities -blood cultures negative to date Plan: -continue vancomycin day 1 -continue Zosyn day 1 -sputum culture sent -chylothorax fluid sent to lab for culture -patient receiving albumin -not giving patient 30ml/kg IVF due to having pleural effusion is found to be chylothorax. Patient currently on maintenance fluid will reevaluate if needed for more aggressive IVF Qualifiers: Qualified Code(s): A41.9 - Sepsis, unspecified organism (4) Pneumonia Current Visit: Yes Status: Acute Imaging concerning for possible pneumonia which would be hospital acquired due to recent hospitalization -05/03/[address] demonstrating loculated right pleural effusion with tiny left pleural effusion. Bilateral airspace disease suggesting atelectasis or pneumonia. s/p esophagectomy with gastric ulcer. -05/03/2018 Chest x-ray demonstrating persistent bilateral pulmonary opacities Plan: -continue vancomycin day 1 -continue Zosyn day 1 -sputum culture sent -duonebs prn Qualifiers: Pneumonia type: due to unspecified organism Laterality: right Lung location: unspecified part of lung Qualified Code(s): J18.9 - Pneumonia, unspecified organism (5) Loculated pleural effusion Current Visit: Yes Status: Acute 05/03/[address] demonstrating loculated right pleural effusion with tiny left pleural effusion. Bilateral airspace disease suggesting atelectasis or pneumonia. s/p esophagectomy with gastric ulcer. -Plan as above (6) Anemia Current Visit: No Status: Acute Anemia, hemoglobin at admission 10.2 Likely secondary to blood loss from recent surgeries. Improved hemoglobin since last admission. No obvious active bleeding -will continue to monitor hemoglobin Qualifiers: Anemia type: unspecified type Qualified Code(s): D64.9 - Anemia, unspecified (7) Edema Current Visit: Yes Status: Acute Patient presented with new lower extremity edema. No history of heart failure. May be dependent edema, secondary to fluids, new CHF however BNP is low so unlikely BNP 103 -echocardiogram is ordered Qualifiers: Edema type: localized Qualified Code(s): R60.0 - Localized edema (8) Hypertension Current Visit: Yes Status: Acute History of hypertension taking lisinopril. Blood pressure is his low -holding home medication due to low blood pressure Qualifiers: Hypertension type: essential hypertension Qualified Code(s): I10 - Essential (primary) hypertension (9) DVT prophylaxis Current Visit: No Status: Acute SCD History of Present Illness Consult date: 05/03/18 Requesting physician: Alli Kumar Reason for consult: hypoxemia Chief complaint: Dyspnea History of present illness: 67yo female with past medical history of esophageal adenocarcinoma, hypertension, and GERD who is status post transhiatal esophagectomy and jejunostomy on [id number]. Hospital course was complicated by bilateral hemothoraces requiring bilateral chest tubes, pneumonia, acute blood loss anemia. She was discharged on 05/02/2018. Last night she presented to the ED complaining of dyspnea. On chest CT she was found to have a loculated right pleural effusion with tiny left pleural effusion. Pulmonology/critical care was consulted today due to the patient remaining intubated on mechanical ventilation after returning from the OR. She is status post bronchoscopy with aspiration of the tracheobronchial tree x 2, right thoracotomy decrotication, and chemical pleurodesis by the cardiothoracic surgeon Dr. Kumar. Upon my examination of the patient she is in the ICU intubated. Her daughter and future son-in-law is at the bedside. History is taken from medical records and family. They report that the patient well-being a home had progressively become more short of breath and a home health nurse recommended she go to the ED. The patient is a former smoker who quit 1 year ago however she smoked for 47 years 1ppd. Past Med Surg Social Fam HX - Past Medical History Source: old records reviewed, obtained from family Medical history: cancer, GERD, hypertension Additional medical history: esophageal cancer Psychiatric history: no psych history - Past Surgical History Surgical History: herniorrhaphy, hysterectomy Additional surgical history: Esophagus stretched. EGD. COLONOSCOPY - Social History Smoking Status: Former smoker Smokeless Tobacco Status: No Alcohol use: none Drug use: none - Family History Mother Living Status: Medications and Allergies RX: Omeprazole [PriLOSEC] 20 mg PO BIDAC 12/12/17 [History] RX: Lisinopril-HCTZ 10-12.5 [Prinzide 10-12.5] 1 tab PO DAILY 04/21/18 [History] Docusate Sodium [Colace] 100 mg PO BID PRN #30 capsule 05/02/18 [Rx] Ondansetron ODT [Zofran ODT] 4 mg SL Q4HR PRN #15 tab.rapdis 05/02/18 [Rx] RX: OxyCODONE/APAP 5/325 [Percocet 5/325 MG] 1 each PO Q6HR PRN 7 Days #28 tablet 05/02/18 [Rx] levoFLOXacin [Levaquin] 750 mg PO DAILY 7 Days #7 tablet 05/02/18 [Rx] Allergy/AdvReac Type Severity Reaction Status Date / Time No Known Allergies Allergy Verified 04/13/18 09:45 ROS unobtainable: due to endotracheal tube All Systems: The remainder of the systems were reviewed and are negative Physical Examination Vital Signs: Vital Signs, Last 4 Hours Temp Pulse Resp BP Pulse Ox 05/03/18 13:00 107 12 107/64 100 05/03/18 12:00 97.4 F L 107 12 115/63 89 05/03/18 11:48 12 134/71 93 General appearance: no acute distress, appears uncomfortable Eyes: nonicteric ENT: oropharynx moist Neck: supple Effort: normal Inspection: normal Auscultation: bilateral: rales, other (Course breath sounds) Cardiovascular: regular rate and rhythm Gastrointestinal: normoactive bowel sounds, soft Integumentary: normal Extremities: no cyanosis, edema (Bilateral 1+) Musculoskeletal: no deformities unable to assess due to mental status (Intubated) 2 chest tubes on the right side of thorax Ventilator Settings Ventilator Settings: Ventilator Settings, Last 8 Hours Ventilator Tidal Volume 400 Setting Ventilator Tidal Volume 400 Setting Ventilator Tidal Volume 400 Setting Ventilator Respiratory Rate 12 Setting Ventilator Respiratory Rate 12 Setting Ventilator Respiratory Rate 12 Setting Actual Respiratory Rate 12 Actual Respiratory Rate 12 Actual Respiratory Rate 12 Positive End Expiratory 5 Pressure Positive End Expiratory 5 Pressure Positive End Expiratory 5 Pressure Peak Inspiratory Airway 38 Pressure Results - Laboratory Findings CBC and BMP: 05/03/18 00:45 05/03/18 00:45 ABG ABG pH 7.27 pH Units (7.32-7.45) L 05/03/18 13:05 ABG pCO2 58 mmHg (35-45) H 05/03/18 13:05 ABG pO2 55 mmHg (85-104) L 05/03/18 13:05 ABG O2 Saturation 83 % (95-98) L 05/03/18 13:05 Abnormal lab findings: Abnormal lab results WBC 20.0 K/mcL (4.3-11.1) H 05/03/18 00:45 RBC 3.20 M/mcL (3.82-4.97) L 05/03/18 00:45 Hgb 10.2 g/dL (11.5-15.4) L 05/03/18 00:45 Hct 31.7 % (35.3-44.9) L 05/03/18 00:45 RDW 15.6 % (11.5-14.5) H 05/03/18 00:45 Neutrophils # 18.6 K/mcL (1.6-8.9) H 05/03/18 00:45 Lymphocytes # 0.4 K/mcL (0.6-4.6) L 05/03/18 00:45 ABG pH 7.27 pH Units (7.32-7.45) L 05/03/18 13:05 ABG pCO2 58 mmHg (35-45) H 05/03/18 13:05 ABG pO2 55 mmHg (85-104) L 05/03/18 13:05 ABG Total CO2 28 mEq/L (20-26) H 05/03/18 13:05 ABG O2 Saturation 83 % (95-98) L 05/03/18 13:05 Sodium 133 mEq/L (136-145) L 05/03/18 00:45 BUN 45 mg/dL (8-23) H 05/03/18 00:45 BUN/Creatinine Ratio 59 (6-26) H 05/03/18 00:45 Glucose 119 mg/dL (70-105) H 05/03/18 00:45 POC Glucose 117 mg/dL (70-99) H 05/03/18 11:52 B-Natriuretic Peptide 103 pg/mL (Less than 100) H 05/03/18 00:45 - Microbiology Findings Microbiology Findings: Microbiology, Last 48 Hours 05/03/18 01:04 Blood Culture - Preliminary Peripheral Venipuncture Culture is incubating and being continuously monitored for growth. Final report to follow. 05/03/18 00:45 Blood Culture - Preliminary Peripheral Venipuncture Culture is incubating and being continuously monitored for growth. Final report to follow. - Clinical Findings Intake & Output: Intake & Output 05/02/18 05/03/18 05/03/18 23:59 07:59 15:59 Intake Total 170 / 170 Output Total 225 / 225 400 / 400 Balance -55 / -55 -400 / -400 Weight 102.829 kg Consult Discharge Plan - Plan Referrals: Дмитрий Lennon MD [Partnered Physician] - 05/16/18 8:55 am Maia Barksdale CNP [Advanced Practice Nurse] - (Office is only open on , Tuesday) Alli Kumar MD [Partnered Physician] - <Leonardo Cano - Last Filed: 05/05/18 13:52> Date of Encounter: 05/05/18 All Systems: The remainder of the systems were reviewed and are negative Physical Examination Vital Signs: Vital Signs, Last 4 Hours Temp Pulse Resp BP Pulse Ox 05/03/18 16:08 97.6 F 05/03/18 15:43 16 68/26 100 05/03/18 15:00 87 17 87/51 100 05/03/18 14:00 108 17 96/62 100 05/03/18 13:10 14 107/64 100 05/03/18 13:00 107 12 107/64 100 Ventilator Settings Ventilator Settings: Ventilator Settings, Last 8 Hours Ventilator Tidal Volume 450 Setting Ventilator Tidal Volume 400 Setting Ventilator Tidal Volume 400 Setting Ventilator Tidal Volume 450 Setting Ventilator Tidal Volume 450 Setting Ventilator Tidal Volume 400 Setting Ventilator Tidal Volume 400 Setting Ventilator Tidal Volume 400 Setting Ventilator Respiratory Rate 14 Setting Ventilator Respiratory Rate 12 Setting Ventilator Respiratory Rate 12 Setting Ventilator Respiratory Rate 14 Setting Ventilator Respiratory Rate 14 Setting Ventilator Respiratory Rate 12 Setting Ventilator Respiratory Rate 12 Setting Ventilator Respiratory Rate 12 Setting Actual Respiratory Rate 17 Actual Respiratory Rate 12 Actual Respiratory Rate 12 Actual Respiratory Rate 14 Actual Respiratory Rate 12 Actual Respiratory Rate 12 Actual Respiratory Rate 12 Positive End Expiratory 5 Pressure Positive End Expiratory 5 Pressure Positive End Expiratory 5 Pressure Positive End Expiratory 5 Pressure Positive End Expiratory 8 Pressure Positive End Expiratory 5 Pressure Positive End Expiratory 5 Pressure Positive End Expiratory 5 Pressure Peak Inspiratory Airway 29 Pressure Peak Inspiratory Airway 33 Pressure Peak Inspiratory Airway 38 Pressure Results - Laboratory Findings CBC and BMP: 05/05/18 03:33 05/05/18 03:33 ABG ABG pH 7.27 pH Units (7.32-7.45) L 05/03/18 13:05 ABG pCO2 58 mmHg (35-45) H 05/03/18 13:05 ABG pO2 55 mmHg (85-104) L 05/03/18 13:05 ABG O2 Saturation 83 % (95-98) L 05/03/18 13:05 Abnormal lab findings: Abnormal lab results WBC 20.0 K/mcL (4.3-11.1) H 05/03/18 00:45 RBC 3.20 M/mcL (3.82-4.97) L 05/03/18 00:45 Hgb 10.2 g/dL (11.5-15.4) L 05/03/18 00:45 Hct 31.7 % (35.3-44.9) L 05/03/18 00:45 RDW 15.6 % (11.5-14.5) H 05/03/18 00:45 Neutrophils # 18.6 K/mcL (1.6-8.9) H 05/03/18 00:45 Lymphocytes # 0.4 K/mcL (0.6-4.6) L 05/03/18 00:45 ABG pH 7.27 pH Units (7.32-7.45) L 05/03/18 13:05 ABG pCO2 58 mmHg (35-45) H 05/03/18 13:05 ABG pO2 55 mmHg (85-104) L 05/03/18 13:05 ABG Total CO2 28 mEq/L (20-26) H 05/03/18 13:05 ABG O2 Saturation 83 % (95-98) L 05/03/18 13:05 Sodium 133 mEq/L (136-145) L 05/03/18 00:45 BUN 45 mg/dL (8-23) H 05/03/18 00:45 BUN/Creatinine Ratio 59 (6-26) H 05/03/18 00:45 Glucose 119 mg/dL (70-105) H 05/03/18 00:45 POC Glucose 117 mg/dL (70-99) H 05/03/18 11:52 B-Natriuretic Peptide 103 pg/mL (Less than 100) H 05/03/18 00:45 - Microbiology Findings Microbiology Findings: Microbiology, Last 48 Hours 05/03/18 01:04 Blood Culture - Preliminary Peripheral Venipuncture Culture is incubating and being continuously monitored for growth. Final report to follow. 05/03/18 00:45 Blood Culture - Preliminary Peripheral Venipuncture Culture is incubating and being continuously monitored for growth. Final report to follow. - Clinical Findings Intake & Output: Intake & Output 05/03/18 05/03/18 05/03/18 07:59 15:59 23:59 Intake Total 170 / 170 Output Total 225 / 225 1097 / 1097 Balance -55 / -55 -1097 / -1097 Weight 102.829 kg - Attending Attestation I examined this patient and my medical decision-making was reviewed with the Resident Physician. I agree with the documented findings, disposition and treatment plan as described except to the extent set forth below. Patient seen and examined. I was called by the charge nurse because patient's oxygen saturation is deteriorating in the 70s this since patient came from the surgery and patient had chest tube after surgery. Labs, radiology, chart personally reviewed. 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 Pulmonary: Respiratory therapist was at the bedside and bagging the patient due to her severe hypoxia and I suspected there could be a tension pneumothorax and immediately had the chest tube chambers to suction and lowered PEEP on the v entilator with changing tidal volume that had immediate response and improvement in oxygen saturation and this was communicated with the primary team. Chest tubes needs to remain on suctions and immediate improvement on the peak airway pressure and was able to adjust PEEP and FIO2 on the ventlator. Patient with chylothorax and labs pending. Patient will need special diet and dietary is following up. Cardiovascular: stable after intervention and discussed with the family. GI: Nutrition per dietary and GI prophylaxis per routine. They suspect patient might need TPN Heme: DVT prophylaxis per routine ID: Continue antibiotics and plan to de-escalation Renal; urine out put and renal funtion reviewed Endorcine: blood glucose is monitored Lines: all lines checked and no evidence of infections Skin: skin care to prevent pressure ulcers per nursing routine care I spent 45 min of Critical Care time with this patient. It involved decision making of high complexity to assess, manipulate, and support vital organ system failure and/or to prevent further life threatening deterioration of the chula ent's condition. The time involved in the performance of separately reportable procedures was not counted toward critical care time.
[2018-05-03] MEDS: FentaNYL (PF) 1,000 MCG in 0.9 % Sodium Chloride 80 ML IVC SCH (14:07)
[2018-05-03] MEDS: Dexmedetomidine HCl 400 MCG/100 ML MLS IVC SCH ×2 (14:09→20:19)
[2018-05-03] MEDS: Artificial Tears SOLN 15 ML BOTTLE BOTH EYES SCH ×3 (14:22→23:54)
[2018-05-03] MEDS: Piperacillin/Tazobactam 3.375 GM in 0.9 % Sodium Chloride Mini Bag 100 ML IVPB SCH ×2 (14:39→23:51)
--- NOTE | 2018-05-03 15:41 | Electrocardiograph Report ---
[place] [id number] Test Date: 2018-05-03 Pat Name: Dawn Lobo Department: EXAM19 Room: [facility] Gender: F Bird Tender: : 1950 Requested By: Krysta Segura Order Number: [id number] Reading MD: [place] Measurements Intervals [place] Rate: 109 P: 51 MS: 129 QRS: -29 QRSD: 75 T: 6 QT: 316 QTc: 426 Interpretive Statements Sinus tachycardia Borderline left axis deviation Poor R wave progression in precordial leads Low voltage in precordial leads V6 not suitable for interpretation Electronically Signed On 05-03-2018 15:39:34 EST by [place]
[2018-05-03] MEDS: Pantoprazole 40 MG VIAL IVP SCH (17:23)
[2018-05-03] MEDS: Chlorhexidine Rinse 15 ML MOUTHWASH MM SCH (20:19)
[2018-05-03] MEDS ORDERED: Albumin 25% 25gram/100mL 25 GM/100 ML IV.SOLN ONE (21:19)
[2018-05-03] MEDS: Albumin 25% 25gram/100mL 25 GM/100 ML IV.SOLN IVC SCH ×2 (21:25→21:34)
--- NOTE | 2018-05-03 23:34 | Procedure Note ---
Date of procedure: 05/03/18 Pre-op diagnosis: hypotensive Post-op diagnosis: same Procedure: Timeout was performed, consent was obtained, the patient was placed in supine position and the area was prepped and draped in a sterile fashion. The area over the right IJ was anesthetized using 3cc's of 1% lidocaine. Using the sonosite, the IJ was identified, and a cook needle was used to cannulate the vein. Dark, non-pulsatile blood was seen. Using the Seldinger technique, a guidewire was passed through the needle and the needle was withdrawn. A small incision was made and a dilator sheath was then passed over the guidewire and then removed. The catheter was then placed as the guidewire was removed. The catheter was then sutured in place. All 3 ports had good return, and flushed with normal saline easily. The patient tolerated the procedure well. A post-procedure chest x-ray is pending. Surgeon: Deon Serna Was there an certified physician's assistant present: Yes X Ray Equipment Servicer: Tamara Silver Estimated blood loss (cc): 3 Specimen: none Pathology: none sent Condition: critical Disposition: ICU
[2018-05-04] MEDS: Norepinephrine 4 MG in D5% in Water 250 ML IVC SCH ×2 (00:20→20:24)
[2018-05-04] MEDS: 0.9 % Sodium Chloride 1,000 ML IVC SCH ×3 (02:24→19:00)
[2018-05-04] MEDS: Artificial Tears SOLN 15 ML BOTTLE BOTH EYES SCH ×3 (03:20→12:34)
[2018-05-04] MEDS: Ipratropium/Albuterol Neb 3 ML IH SCH ×7 (03:59→23:18)
[2018-05-04 04:30] LABS: BUN/Creatinine Ratio 56 (6-26); Blood Urea Nitrogen 45 mg/dL (8-23); Calcium 8.4 mg/dL (8.6-10.3); Carbon Dioxide 24 mEq/L (23-29); Chloride 105 mEq/L (98-107); Glucose 169 mg/dL (70-105); Osmolality,Calculated 299 (280-300); Potassium 4.6 mEq/L (3.5-5.1); Sodium 137 mEq/L (136-145); eGFR For Non-African Americans > 60 (> 60)
[2018-05-04 04:39] LABS: ABG Base Excess 1 mEq/L (-2 to 3); ABG HCO3 25 mEq/L (21-27); ABG Oxygen Saturation 97 % (95-98); ABG PCO2 35 mmHg (35-45); ABG PH 7.46 pH Units (7.32-7.45); ABG PO2 87 mmHg (85-104); ABG TCO2 26 mEq/L (20-26); Blood Gas PEEP 5 cm H2O; Blood Gas Respiration Rate 14; Blood Gas VT 450 cc
[2018-05-04 04:49] LABS: Basophils % 0.1 %; Hematocrit 21.1 % (35.3-44.9); Immature Granulocytes % 0.8 % (0-4); Lymphocytes # 0.4 K/mcL (0.6-4.6); Lymphocytes % 2.9 %; Mean Corpuscular HGB Conc 31.8 g/dL (31.6-35.5); Mean Corpuscular Hemoglobin 31.8 pg (28.0-33.3); Mean Platelet Volume 10.7 fL (9.4-12.4); Monocytes # 0.6 K/mcL (0.0-1.3); Monocytes % 4.7 %; Platelet Count 110 K/mcL (140-400); Red Blood Count 2.11 M/mcL (3.82-4.97); Red Cell Distribution Width 15.4 % (11.5-14.5); Segmented Neutrophils % 91.5 %
[2018-05-04 05:52] LABS: Hemoglobin 6.7 g/dL (11.5-15.4)
[2018-05-04] MEDS: Pantoprazole 40 MG VIAL IVP SCH ×2 (06:44→18:09)
--- NOTE | 2018-05-04 07:36 | Pulmonology Progress Note ---
<Lety García - Last Filed: 05/04/18 14:00> Date of Encounter: 05/04/18 Time of Encounter: 07:36 Assessment and Plan (1) Acute respiratory failure with hypoxemia Current Visit: Yes Status: Acute Acute respiratory failure with hypoxemia -likely due to s/p OR for bronchoscopy with aspiration, right thoracotomy decrotication but may be contributed to by possible hospital acquired pneumonia -05/03/[address] demonstrating loculated right pleural effusion with tiny left pleural effusion. Bilateral airspace disease suggesting atelectasis or pneumonia. s/p esophagectomy with gastric ulcer. 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 Kumar. -S/p transhiatal esophagectomy and jejunostomy on [id number]. Hospital course was complicated by bilateral hemothoraces requiring bilateral chest tubes, pneum onia, acute blood loss anemia. She was discharged on 05/02/2018. -05/03/[address] demonstrating loculated right pleural effusion with tiny left pleural effusion. Bilateral airspace disease suggesting atelectasis or pneumonia. s/p esophagectomy with gastric ulcer. -05/03/2018 Chest x-ray demonstrating persistent bilateral pulmonary opacities -output from chest tubes 385cc Plan: -continue with [address] on right-sided chest -continue fentanyl PRN pain -nutrition managing TPN -cardiothoracic surgery following -chylothorax fluid cultures pending (3) Sepsis Current Visit: Yes Status: Acute Sepsis unlikely as the patient has been afebrile and WBC has significantly decreased from 20 to 13.1. Patient initially meeting sepsis criteria with SIRS criteria: tachycardia 107, WBC 20 -most likely secondary to right-sided loculated chylothorax and possible hospital acquired pneumonia -afebrile, hemodynamically stable -05/03/[address] demonstrating loculated right pleural effusion with tiny left pleural effusion. Bilateral airspace disease suggesting atelectasis or pneumonia. s/p esophagectomy with gastric ulcer. -05/03/2018 Chest x-ray demonstrating persistent bilateral pulmonary opacities -blood cultures negative to date Plan: -stopped vancomycin day 2 -continue Zosyn day 2 -sputum culture sent -chylothorax fluid sent to lab for culture Qualifiers: Qualified Code(s): A41.9 - Sepsis, unspecified organism (4) Pneumonia Current Visit: Yes Status: Acute Imaging concerning for possible pneumonia which would be hospital acquired due to recent hospitalization -05/04/2018 chest x-ray demonstrating stable cardiopulmonary status including diffuse airspace opacities, pulmonary edema, bibasilar opacities, bilateral effusions, no discrete pneumothorax -05/03/[address] demonstrating loculated right pleural effusion with tiny left pleural effusion. Bilateral airspace disease suggesting atelectasis or pneumonia. s/p esophagectomy with gastric ulcer. -05/03/2018 Chest x-ray demonstrating persistent bilateral pulmonary opacities Plan: -stopped vancomycin day 2 -continue Zosyn day 2 -sputum culture sent -duonebs prn Qualifiers: Pneumonia type: due to unspecified organism Laterality: right Lung location: unspecified part of lung Qualified Code(s): J18.9 - Pneumonia, unspecified organism (5) Loculated pleural effusion Current Visit: Yes Status: Acute 05/03/[address] demonstrating loculated right pleural effusion with tiny left pleural effusion. Bilateral airspace disease suggesting atelectasis or pneumoni a. s/p esophagectomy with gastric ulcer. -Plan as above (6) Anemia Current Visit: No Status: Acute Anemia, hemoglobin at admission 10.2 -hemoglobin 6.7 > 8.0 after transfusion -unsure of source of acute of blood loss, may be from recent surgeries. Improved hemoglobin since last admission. -No obvious active bleeding -today patient required one unit PRBC due to decreased hemoglobin to 6.7 -will continue to monitor hemoglobin q6h Qualifiers: Anemia type: unspecified type Qualified Code(s): D64.9 - Anemia, unspecified (7) Tension pneumothorax Current Visit: Yes Status: Acute Resolved. Suspicion for tension pneumothorax. On 05/03/2018 after returning from surgery (bronchoscopy with aspiration of the tracheobronchial tree x 2, right thoracotomy decrotication, and chemical pleurodesis) respiratory therapy noted the patient had severe hypoxia despite being on the ventilator and she was then bag masked. There was suspicion of tension pneumothorax so the chest tubes were set up to suction and PEEP and tidal volume lowered on ventilator. The patient had an immediate improvement in oxygenation. -Chest x-ray on 05/04/2018 demonstrated no pneumothorax (8) Edema Current Visit: Yes Status: Acute Patient has heart failure with preserved ejection fraction, mild LV diastolic dysfunction Patient presented with new lower extremity edema. No history of heart failure. -May be dependent edema, secondary to fluids, -BNP 103 -TTE 05/03/2018: EF 55 to 60%, mild left ventricular diastolic dysfunction, no significant valvular dysfunction. -Will be cautious with IV fluids Qualifiers: Edema type: localized Qualified Code(s): R60.0 - Localized edema (9) Hypertension Current Visit: Yes Status: Acute History of hypertension taking lisinopril. Blood pressure is his low -holding home medication due to low blood pressure Qualifiers: Hypertension type: essential hypertension Qualified Code(s): I10 - Essential (primary) hypertension (10) History of esophagectomy Current Visit: No Status: Acute history of esophageal adenocarcinoma who is status post transhiatal esophagecto my and jejunostomy on [id number] (11) DVT prophylaxis Current Visit: No Status: Acute SCD Subjective Principal diagnosis: Acute respiratory failure with hypoxemia Interval history: 67yo female with past medical history of esophageal adenocarcinoma who is status post transhiatal esophagectomy and jejunostomy on [id number]. Hospital course was complicated by bilateral hemothoraces requiring bilateral chest tubes, pneumonia, acute blood loss anemia. She was discharged on 05/02/2018. She presented back to the ED on 05/03/2018 complaining of dyspnea. On chest CT she was found to have a loculated right pleural effusion with tiny left pleural effusion. On 05/03/2018 she had bronchoscopy with aspiration of the tracheobronchial tree x 2, right thoracotomy decrotication, and chemical pleurodesis by the cardiothoracic surgeon Dr. Kumar. Pulmonology/critical care was consulted today due to the patient remaining intubated on mechanical ventilation after returning from the OR. After surgery respiratory therapy noted the patient had severe hypoxia despite being on the ventilator and she was then bag masked. There was suspicion of tension pneumothorax so the chest tubes were set up to suction and PEEP and tidal volume lowered on ventilator. The patient had an immediate improvement in oxygenation. Today, the patient was successfully extubated. She reported pain on her right side where the chest tubes are in place. She denied any fever or chills. She is in no acute distress. Objective PUL Vital signs: Last Vital Signs Temp 97.9 F 05/04/18 03:00 Pulse 66 05/04/18 05:00 Resp 26 05/04/18 06:04 BP 86/45 05/04/18 05:00 Pulse Ox 94 05/04/18 06:04 General appearance: no acute distress, alert Eyes: nonicteric ENT: oropharynx moist Neck: supple, other (Right IJ) Effort: normal Auscultation: right: rales, bilateral: other (Course breath sounds bilaterally) Cardiovascular: regular rate and rhythm Gastrointestinal: normoactive bowel sounds, soft Integumentary: normal, rash Extremities: no cyanosis, pulses normal, edema (Bilateral 1+) Musculoskeletal: no deformities normal mental status, non-focal exam mood appropriate, affect normal Ventilator Settings Ventilator Settings: Ventilator Settings, Last 8 Hours Ventilator Tidal Volume 450 Setting Ventilator Tidal Volume 450 Setting Ventilator Tidal Volume 450 Setting Ventilator Tidal Volume 450 Setting Ventilator Tidal Volume 450 Setting Ventilator Tidal Volume 450 Setting Ventilator Tidal Volume 450 Setting Ventilator Tidal Volume 450 Setting Ventilator Tidal Volume 450 Setting Ventilator Tidal Volume 450 Setting Ventilator Respiratory Rate 14 Setting Ventilator Respiratory Rate 14 Setting Ventilator Respiratory Rate 14 Setting Ventilator Respiratory Rate 14 Setting Ventilator Respiratory Rate 14 Setting Ventilator Respiratory Rate 14 Setting Ventilator Respiratory Rate 14 Setting Ventilator Respiratory Rate 14 Setting Ventilator Respiratory Rate 14 Setting Ventilator Respiratory Rate 14 Setting Actual Respiratory Rate 26 Actual Respiratory Rate 22 Actual Respiratory Rate 24 Actual Respiratory Rate 16 Actual Respiratory Rate 17 Actual Respiratory Rate 19 Actual Respiratory Rate 20 Actual Respiratory Rate 19 Positive End Expiratory 5 Pressure Positive End Expiratory 5 Pressure Positive End Expiratory 5 Pressure Positive End Expiratory 5 Pressure Positive End Expiratory 5 Pressure Positive End Expiratory 5 Pressure Positive End Expiratory 5 Pressure Positive End Expiratory 5 Pressure Positive End Expiratory 5 Pressure Positive End Expiratory 5 Pressure Peak Inspiratory Airway 31 Pressure Peak Inspiratory Airway 25 Pressure Peak Inspiratory Airway 28 Pressure Peak Inspiratory Airway 18 Pressure Peak Inspiratory Airway 24 Pressure Peak Inspiratory Airway 25 Pressure Peak Inspiratory Airway 27 Pressure Peak Inspiratory Airway 26 Pressure Results - Laboratory Findings CBC and BMP: 05/04/18 12:56 05/04/18 04:04 ABG ABG pH 7.46 pH Units (7.32-7.45) H 05/04/18 04:37 ABG pCO2 35 mmHg (35-45) 05/04/18 04:37 ABG pO2 87 mmHg (85-104) 05/04/18 04:37 ABG O2 Saturation 97 % (95-98) 05/04/18 04:37 Abnormal lab findings: Abnormal lab results WBC 13.1 K/mcL (4.3-11.1) H 05/04/18 04:00 RBC 2.11 M/mcL (3.82-4.97) L 05/04/18 04:00 Hgb 6.7 g/dL (11.5-15.4) L D 05/04/18 04:00 Hct 21.1 % (35.3-44.9) L 05/04/18 04:00 RDW 15.4 % (11.5-14.5) H 05/04/18 04:00 Plt Count 110 K/mcL (140-400) L 05/04/18 04:00 Neutrophils # 12.0 K/mcL (1.6-8.9) H 05/04/18 04:00 Lymphocytes # 0.4 K/mcL (0.6-4.6) L 05/04/18 04:00 ABG pH 7.46 pH Units (7.32-7.45) H 05/04/18 04:37 BUN 45 mg/dL (8-23) H 05/04/18 04:04 BUN/Creatinine Ratio 56 (6-26) H 05/04/18 04:04 Glucose 169 mg/dL (70-105) H 05/04/18 04:04 POC Glucose 117 mg/dL (70-99) H 05/03/18 11:52 Calcium 8.4 mg/dL (8.6-10.3) L 05/04/18 04:04 B-Natriuretic Peptide 103 pg/mL (Less than 100) H 05/03/18 00:45 - Microbiology Findings Microbiology Findings: Microbiology, Last 48 Hours 05/03/18 10:20 Respiratory Culture - Preliminary Other-Specify in Comments 05/03/18 10:38 Body Fluid Culture - Preliminary Pleural Fluid 05/03/18 01:04 Blood Culture - Preliminary Peripheral Venipuncture Culture is incubating and being continuously monitored for growth. Final report to follow. 05/03/18 00:45 Blood Culture - Preliminary Peripheral Venipuncture Culture is incubating and being continuously monitored for growth. Final report to follow. - Clinical Findings Intake & Output: Intake & Output 05/03/18 05/03/18 05/04/18 15:59 23:59 07:59 Intake Total 2351.1 / 2351.1 1462.9 / 1462.9 Output Total 1097 / 1097 608 / 608 226 / 226 Balance -1097 / -1097 1743.1 / 1743.1 1236.9 / 1236.9 Weight 80.6 kg Consult Discharge Plan - Plan Referrals: Дмитрий Lennon MD [Partnered Physician] - 05/16/18 8:55 am Maia Barksdale CNP [Advanced Practice Nurse] - (Office is only open on , Tuesday) Alli Kumar MD [Partnered Physician] - <Leonardo Cano - Last Filed: 05/05/18 13:41> Date of Encounter: 05/05/18 Objective PUL Vital signs: Last Vital Signs Temp 98.3 F 05/04/18 09:54 Pulse 115 05/04/18 09:54 Resp 22 05/04/18 09:54 BP 104/53 05/04/18 09:54 Pulse Ox 95 05/04/18 09:54 Ventilator Settings Ventilator Settings: Ventilator Settings, Last 8 Hours Ventilator Tidal Volume 450 Setting Ventilator Tidal Volume 450 Setting Ventilator Tidal Volume 450 Setting Ventilator Tidal Volume 450 Setting Ventilator Tidal Volume 450 Setting Ventilator Tidal Volume 450 Setting Ventilator Respiratory Rate 14 Setting Ventilator Respiratory Rate 14 Setting Ventilator Respiratory Rate 14 Setting Ventilator Respiratory Rate 14 Setting Ventilator Respiratory Rate 14 Setting Ventilator Respiratory Rate 14 Setting Actual Respiratory Rate 27 Actual Respiratory Rate 26 Actual Respiratory Rate 22 Actual Respiratory Rate 24 Actual Respiratory Rate 16 Positive End Expiratory 5 Pressure Positive End Expiratory 5 Pressure Positive End Expiratory 5 Pressure Positive End Expiratory 5 Pressure Positive End Expiratory 5 Pressure Positive End Expiratory 5 Pressure Positive End Expiratory 5 Pressure Peak Inspiratory Airway 14 Pressure Peak Inspiratory Airway 31 Pressure Peak Inspiratory Airway 25 Pressure Peak Inspiratory Airway 28 Pressure Peak Inspiratory Airway 18 Pressure Results - Laboratory Findings CBC and BMP: 05/05/18 03:33 05/05/18 03:33 ABG ABG pH 7.46 pH Units (7.32-7.45) H 05/04/18 04:37 ABG pCO2 35 mmHg (35-45) 05/04/18 04:37 ABG pO2 87 mmHg (85-104) 05/04/18 04:37 ABG O2 Saturation 97 % (95-98) 05/04/18 04:37 Abnormal lab findings: Abnormal lab results WBC 13.1 K/mcL (4.3-11.1) H 05/04/18 04:00 RBC 2.11 M/mcL (3.82-4.97) L 05/04/18 04:00 Hgb 6.7 g/dL (11.5-15.4) L D 05/04/18 04:00 Hct 21.1 % (35.3-44.9) L 05/04/18 04:00 RDW 15.4 % (11.5-14.5) H 05/04/18 04:00 Plt Count 110 K/mcL (140-400) L 05/04/18 04:00 Neutrophils # 12.0 K/mcL (1.6-8.9) H 05/04/18 04:00 Lymphocytes # 0.4 K/mcL (0.6-4.6) L 05/04/18 04:00 ABG pH 7.46 pH Units (7.32-7.45) H 05/04/18 04:37 BUN 45 mg/dL (8-23) H 05/04/18 04:04 BUN/Creatinine Ratio 56 (6-26) H 05/04/18 04:04 Glucose 169 mg/dL (70-105) H 05/04/18 04:04 POC Glucose 117 mg/dL (70-99) H 05/03/18 11:52 Calcium 8.4 mg/dL (8.6-10.3) L 05/04/18 04:04 B-Natriuretic Peptide 103 pg/mL (Less than 100) H 05/03/18 00:45 - Microbiology Findings Microbiology Findings: Microbiology, Last 48 Hours 05/03/18 10:20 Respiratory Culture - Preliminary Other-Specify in Comments 05/03/18 10:38 Body Fluid Culture - Preliminary Pleural Fluid 05/03/18 01:04 Blood Culture - Preliminary Peripheral Venipuncture Culture is incubating and being continuously monitored for growth. Final report to follow. 05/03/18 00:45 Blood Culture - Preliminary Peripheral Venipuncture Culture is incubating and being continuously monitored for growth. Final report to follow. - Clinical Findings Intake & Output: Intake & Output 05/03/18 05/04/18 05/04/18 23:59 07:59 15:59 Intake Total 2351.1 / 2351.1 1462.9 / 1462.9 0 / 0 Output Total 608 / 608 226 / 226 430 / 430 Balance 1743.1 / 1743.1 1236.9 / 1236.9 -430 / -430 Weight 80.6 kg - Attending Attestation I examined this patient and my medical decision-making was reviewed with the Resident Physician. I agree with the documented findings, disposition and treatment plan as described except to the extent set forth below. Patient seen and examined. Labs, radiology, chart personally reviewed. Agree with resident's history and physical, assessment, plan with following comments: [employer]: Patient follows commands, Pulmonary: Acceptable oxygenation and ventilation. Patient tolerating SBT and extubated with complications. Discussed with Dr. Kumar and Dr. Lennon. Patient has chest tubes that managed by Dr. Kumar. Patient with chylothorax and labs pending. Cardiovascular: hypotension which could be multifactorial. I'm hoping blood transfusion with help and will need to keep MAP above 65 mmHg. Patient needs low dose vasopressor. I don't feel this is sepsis, but could be from hypovolemia. GI: Nutrition per dietary and GI prophylaxis per routine. Patient will be on TPN Heme: DVT prophylaxis per routine. Acut anemia, not sure the source, could be post-operative and blood loss. Patient will be transfused 1 PRBC and discussed with surgery team. I believe this will help her hypotension and may need more than 1 PRBC. ID: Continue antibiotics and plan to de-escalation Renal; urine out put and renal funtion reviewed Endorcine: blood glucose is monitored Lines: all lines checked and no evidence of infections Skin: skin care to prevent pressure ulcers per nursing routine care I spent 35 min of Critical Care time with this patient. It involved decision making of high complexity to assess, manipulate, and support vital organ system failure and/or to prevent further life threatening deterioration of the patient's condition. The time involved in the performance of separately reportable procedures was not counted toward critical care time
[2018-05-04] MEDS ORDERED: Aminoglycoside Consult 1 EACH MC ONE (08:22)
[2018-05-04] MEDS: Piperacillin/Tazobactam 3.375 GM in 0.9 % Sodium Chloride Mini Bag 100 ML IVPB SCH ×3 (09:09→23:41)
--- NOTE | 2018-05-04 09:15 | Cardiothoracic Progress Note ---
Date of Encounter: 05/04/18 Time of Encounter: 09:12 - Assessment and plan (1) Acute respiratory failure with hypoxemia Current Visit: Yes Status: Acute The assessment and plan as outlined above was discussed with the patient and/or family members who expressed understanding and agreement. All questions were answered. cpap trial for probable extubation this morning. 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 All questions were answered. will need tpn and perhaps octreotide for the next 2 weeks. continue chest tubes to suction - Subjective Interval history: on cpap Vital Signs, Last 4 Hours Pulse Resp BP Pulse Ox 05/04/18 07:42 27 98/48 100 05/04/18 06:04 26 94 05/04/18 06:00 70 84/45 100 [place]gy[place] Flow Rate Oxygen Flow Rate (LPM) 3 Clinical Data, last 8 Hours Output, Chest Tube Drainage 10 Amount [Right Mid-Axillary Chest #1] Output, Chest Tube Drainage 6 Amount [Right Mid-Axillary Chest #2] Weight 05/02/18 05/03/18 05/04/18 23:59 23:59 23:59 Weight 80.6 kg - Physical Examination General: Conversant, No Apparent Distress HEENT: Atraumatic Cardiac: Reg Rate and Rhythm, Normal S1 and S2 Chest tubes: Other (thin serosanguinous drainage ) Lungs: Normal Breath Sounds Neuro: Alert and responsive, Cranial nerves intact Vascular: Normal capillary refill Musculoskeletal: Other (5/5 strength ) Extremities: No Clubbing, No Cyanosis, Normal Pulses - Labs 05/04/18 04:00 05/04/18 04:04 Lab Results, Last 24 hours 05/04/18 05/04/18 04:00 04:04 WBC 13.1 H Hgb 6.7 L D Hct 21.1 L Plt Count 110 L Sodium 137 Potassium 4.6 Chloride 105 Carbon Dioxide 24 BUN 45 H Creatinine 0.80 Glucose 169 H Calcium 8.4 L - Imaging Chest Xray: image reviewed Consult Discharge Plan - Plan Referrals: Дмитрий Lennon MD [Partnered Physician] - 05/16/18 8:55 am Maia Barksdale, HEALTHCARE ADMINISTRATOR [Advanced Practice Nurse] - (Office is only open on , Tuesday) Alli Kumar MD [Partnered Physician] -
[2018-05-04] MEDS: Chlorhexidine Rinse 15 ML MOUTHWASH MM SCH (09:22)
[2018-05-04] MEDS ORDERED: 0.9 % Sodium Chloride 250 ML ONE (09:37)
--- NOTE | 2018-05-04 10:34 | Event Note ---
Date of Encounter: 05/04/18 Time of Encounter: 07:00 Surgical incisions (04/21/2018) s/p transhiatal esophagectomy and jejunostomy area c/di. [place] to remain in place until aprox 05/12/2018. Pathlogy remains pending outside consultation. Cares per primary team
[2018-05-04] MEDS: FentaNYL (PF) 1,000 MCG in 0.9 % Sodium Chloride 80 ML IVC SCH (12:24)
[2018-05-04 13:12] LABS: Hematocrit 25.2 % (35.3-44.9)
[2018-05-04] MEDS ORDERED: OXYCODONE Oral CONC 10 MG/0.5 ML ORAL.SYG SL PRN ×3 (14:59→21:36)
[2018-05-04 19:48] LABS: Hematocrit 24.1 % (35.3-44.9); Hemoglobin 7.7 g/dL (11.5-15.4)
[2018-05-04] MEDS: OXYCODONE Oral CONC 10 MG/0.5 ML ORAL.SYG SL PRN (21:52)
[2018-05-05] MEDS: 0.9 % Sodium Chloride 1,000 ML IVC SCH (02:22)
[2018-05-05] MEDS: Ipratropium/Albuterol Neb 3 ML IH SCH ×5 (03:21→19:40)
[2018-05-05] MEDS: OXYCODONE Oral CONC 10 MG/0.5 ML ORAL.SYG SL PRN ×4 (03:30→22:25)
[2018-05-05 03:43] LABS: Basophils % 0.1 %; Hematocrit 25.2 % (35.3-44.9); Hemoglobin 7.9 g/dL (11.5-15.4); Immature Granulocytes % 0.9 % (0-4); Lymphocytes # 0.4 K/mcL (0.6-4.6); Lymphocytes % 3.9 %; Mean Corpuscular HGB Conc 31.3 g/dL (31.6-35.5); Mean Corpuscular Hemoglobin 31.1 pg (28.0-33.3); Mean Corpuscular Volume 99.2 fL (83.0-100.0); Mean Platelet Volume 10.1 fL (9.4-12.4); Monocytes # 0.9 K/mcL (0.0-1.3); Monocytes % 7.8 %; Neutrophils # 9.8 K/mcL (1.6-8.9); Platelet Count 123 K/mcL (140-400); Red Blood Count 2.54 M/mcL (3.82-4.97); Red Cell Distribution Width 16.3 % (11.5-14.5); Segmented Neutrophils % 87.3 %
[2018-05-05 04:03] LABS: BUN/Creatinine Ratio 49 (6-26); Blood Urea Nitrogen 30 mg/dL (8-23); Calcium 8.1 mg/dL (8.6-10.3); Carbon Dioxide 25 mEq/L (23-29); Chloride 109 mEq/L (98-107); Glucose 91 mg/dL (70-105); Osmolality,Calculated 294 (280-300); Potassium 4.1 mEq/L (3.5-5.1); Sodium 139 mEq/L (136-145); eGFR For Non-African Americans > 60 (> 60)
[2018-05-05] MEDS: Pantoprazole 40 MG VIAL IVP SCH ×2 (05:18→18:07)
--- NOTE | 2018-05-05 07:11 | Pulmonology Progress Note ---
<LolisBeni W - Last Filed: 05/05/18 09:06> Date of Encounter: 05/05/18 Objective PUL Vital signs: Last Vital Signs Temp 98.1 F 05/05/18 08:00 Pulse 92 05/05/18 07:00 Resp 18 05/05/18 07:46 BP 127/64 05/05/18 07:00 Pulse Ox 97 05/05/18 07:46 Results - Laboratory Findings CBC and BMP: 05/05/18 03:33 05/05/18 03:33 ABG ABG pH 7.46 pH Units (7.32-7.45) H 05/04/18 04:37 ABG pCO2 35 mmHg (35-45) 05/04/18 04:37 ABG pO2 87 mmHg (85-104) 05/04/18 04:37 ABG O2 Saturation 97 % (95-98) 05/04/18 04:37 Abnormal lab findings: Abnormal lab results WBC 11.2 K/mcL (4.3-11.1) H 05/05/18 03:33 RBC 2.54 M/mcL (3.82-4.97) L 05/05/18 03:33 Hgb 7.9 g/dL (11.5-15.4) L 05/05/18 03:33 Hct 25.2 % (35.3-44.9) L 05/05/18 03:33 MCHC 31.3 g/dL (31.6-35.5) L 05/05/18 03:33 RDW 16.3 % (11.5-14.5) H 05/05/18 03:33 Plt Count 123 K/mcL (140-400) L 05/05/18 03:33 Neutrophils # 9.8 K/mcL (1.6-8.9) H 05/05/18 03:33 Lymphocytes # 0.4 K/mcL (0.6-4.6) L 05/05/18 03:33 ABG pH 7.46 pH Units (7.32-7.45) H 05/04/18 04:37 Chloride 109 mEq/L (98-107) H 05/05/18 03:33 BUN 30 mg/dL (8-23) H 05/05/18 03:33 BUN/Creatinine Ratio 49 (6-26) H 05/05/18 03:33 Calcium 8.1 mg/dL (8.6-10.3) L 05/05/18 03:33 B-Natriuretic Peptide 103 pg/mL (Less than 100) H 05/03/18 00:45 - Microbiology Findings Microbiology Findings: Microbiology, Last 48 Hours 05/03/18 10:20 Respiratory Culture - Preliminary Other-Specify in Comments 05/03/18 10:38 Body Fluid Culture - Preliminary Pleural Fluid - Clinical Findings Intake & Output: Intake & Output 05/04/18 05/05/18 05/05/18 23:59 07:59 15:59 Intake Total 1323.1 / 1323.1 1475 / 1475 Output Total 970 / 970 360 / 360 235 / 235 Balance 353.1 / 353.1 1115 / 1115 -235 / -235 Weight 88.82 kg Consult Discharge Plan - Plan Referrals: Дмитрий Lennon MD [Partnered Physician] - 05/16/18 8:55 am Maia Barksdale CNP [Advanced Practice Nurse] - (Office is only open on , Tuesday) Alli Kumar MD [Partnered Physician] - - Attending Attestation I examined this patient and my medical decision-making was reviewed with the Resident Physician. I agree with the documented findings, disposition and treatment plan as described except to the extent set forth below. We independently had [id number] contact with the patient Patient seen and examined at bedside Labs, radiology, chart personally reviewed. Management was reviewed during multidisciplinary critical care rounds. Impression/Recs: Acute hypoxic respiratory failure Empyema Chylothorax Hutchinson be improving clinically stable for transfer out of ICU recommended de- escalation of antimicrobial coverage appreciate CT surgery managing chest tubes pulmonary will sign off Do not hesitate to call me with any questions or concerns Jay Danielle [phone] <Lety García - Last Filed: 05/05/18 10:55> Date of Encounter: 05/05/18 Time of Encounter: 07:11 Assessment and Plan (1) Acute respiratory failure with hypoxemia Current Visit: Yes Status: Acute Acute respiratory failure with hypoxemia -likely due to s/p OR for bronchoscopy with aspiration, right thoracotomy decrotication but may be contributed to by possible hospital acquired pneumonia -05/03/[address] demonstrating loculated right pleural effusion with tiny left pleural effusion. Bilateral airspace disease suggesting atelectasis or pneumonia. s/p esophagectomy with gastric ulcer. -05/03/2018 Chest x-ray demonstrating persistent bilateral pulmonary opacities -05/04/2018 ABG: pH 7.46, CO2 35, 02 87, HCO3 24 -05/03/2018 ABG: pH 7.27, CO2 58, 02 55, HCO3 25 respiratory acidosis -successfully extubated on 05/04/2018 Plan: -will plan to sign off at this patient at this time, spoke with the hospital is he will take over care. Patient will be transferred to [facility]. 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 Kumar. -S/p transhiatal esophagectomy and jejunostomy on 11810412. Hospital course was complicated by bilateral hemothoraces requiring bilateral chest tubes, pneumonia, acute blood loss anemia. She was discharged on 05/02/2018. -05/03/[address] demonstrating loculated right pleural effusion with tiny left pleural effusion. Bilateral airspace disease suggesting atelectasis or pneumonia. s/p esophagectomy with gastric ulcer. -05/03/2018 Chest x-ray demonstrating persistent bilateral pulmonary opacities -output from chest tubes 362 cc Plan: -continue with [address] on right-sided chest -continue sublingual oxycodone PRN pain -nutrition managing TPN -cardiothoracic surgery following -chylothorax fluid cultures pending (3) Sepsis Current Visit: Yes Status: Acute Sepsis unlikely as the patient has been afebrile and WBC has significantly decreased in hemodynamically stable. Patient initially meeting sepsis criteria with SIRS criteria: tachycardia 107, WBC 20 -most likely secondary to right-sided loculated chylothorax and possible hospital acquired pneumonia -afebrile, hemodynamically stable, WBC 11.2 -05/03/[address] demonstrating loculated right pleural effusion with tiny left pleural effusion. Bilateral airspace disease suggesting atelectasis or pneumonia. s/p esophagectomy with gastric ulcer. -05/03/2018 Chest x-ray demonstrating persistent bilateral pulmonary opacities -blood cultures negative to date Plan: -stopped vancomycin day 2 -continue Zosyn day 3 -sputum culture sent -chylothorax fluid sent to lab for culture Qualifiers: Qualified Code(s): A41.9 - Sepsis, unspecified organism (4) Pneumonia Current Visit: Yes Status: Acute Imaging concerning for possible pneumonia which would be hospital acquired due to recent hospitalization -05/04/2018 chest x-ray demonstrating stable cardiopulmonary status including diffuse airspace opacities, pulmonary edema, bibasilar opacities, bilateral effusions, no discrete pneumothorax -05/03/[address] demonstrating loculated right pleural effusion with tiny left pleural effusion. Bilateral airspace disease suggesting atelectasis or pneumonia. s/p esophagectomy with gastric ulcer. -05/03/2018 Chest x-ray demonstrating persistent bilateral pulmonary opacities Plan: -continue Zosyn day 3 for a total antibiotic duration of 10 days due to recent history of empyema -stopped vancomycin -sputum culture sent -duonebs prn Qualifiers: Pneumonia type: due to unspecified organism Laterality: right Lung location: unspecified part of lung Qualified Code(s): J18.9 - Pneumonia, unspecified organism (5) Loculated pleural effusion Current Visit: Yes Status: Acute 05/03/[address] demonstrating loculated right pleural effusion with tiny left pleural effusion. Bilateral airspace disease suggesting atelectasis or pneumonia. s/p esophagectomy with gastric ulcer. -Plan as above (6) Anemia Current Visit: No Status: Acute Anemia, hemoglobin at admission 10.2 -hemoglobin 6.7 > 8.0 after transfusion -unsure of source of acute of blood loss, may be from recent surgeries. Improved hemoglobin since last admission. -No obvious active bleeding -today patient required one unit PRBC due to decreased hemoglobin to 6.7 -will continue to monitor hemoglobin q6h Qualifiers: Anemia type: unspecified type Qualified Code(s): D64.9 - Anemia, unspecified (7) Tension pneumothorax Current Visit: Yes Status: Acute Resolved. Suspicion for tension pneumothorax. On 05/03/2018 after returning from surgery (bronchoscopy with aspiration of the tracheobronchial tree x 2, right thoracotomy decrotication, and chemical pleurodesis) respiratory therapy noted the patient had severe hypoxia despite being on the ventilator and she was then bag masked. There was suspicion of tension pneumothorax so the chest tubes were set up to suction and PEEP and tidal volume lowered on ventilator. The patient had an immediate improvement in oxygenation. -Chest x-ray on 05/04/2018 demonstrated no pneumothorax (8) Edema Current Visit: Yes Status: Acute Patient has heart failure with preserved ejection fraction, mild LV diastolic dysfunction Patient presented with new lower extremity edema. No history of heart failure. -May be dependent edema, secondary to fluids, -BNP 103 -TTE 05/03/2018: EF 55 to 60%, mild left ventricular diastolic dysfunction, no significant valvular dysfunction. -Will be cautious with IV fluids Qualifiers: Edema type: localized Qualified Code(s): R60.0 - Localized edema (9) Hypertension Current Visit: Yes Status: Acute History of hypertension taking lisinopril. Blood pressure is his low -holding home medication due to low blood pressure Qualifiers: Hypertension type: essential hypertension Qualified Code(s): I10 - Essential (primary) hypertension (10) History of esophagectomy Current Visit: No Status: Acute history of esophageal adenocarcinoma who is status post transhiatal esophagectomy and jejunostomy on 11810412 (11) DVT prophylaxis Current Visit: No Status: Acute SCD Subjective Principal diagnosis: Acute respiratory failure with hypoxemia Interval history: 67yo female with past medical history of esophageal adenocarcinoma who is status post transhiatal esophagectomy and jejunostomy on 11810412. Hospital course was complicated by bilateral hemothoraces requiring bilateral chest tubes, p neumonia, acute blood loss anemia. She was discharged on 05/02/2018. She presented back to the ED on 05/03/2018 complaining of dyspnea. On chest CT she was found to have a loculated right pleural effusion with tiny left pleural effusion. On 05/03/2018 she had bronchoscopy with aspiration of the trac heobronchial tree x 2, right thoracotomy decrotication, and chemical pleurodesis by the cardiothoracic surgeon Dr. Kumar. Pulmonology/critical care was consulted today due to the patient remaining intubated on mechanical ventilation after returning from the OR. After surgery respiratory therapy noted the patient had severe hypoxia despite being on the ventilator and she was then bag masked. There was suspicion of tension pneumothorax so the chest tubes were set up to suction and PEEP and tidal volume lowered on ventilator. The patient had an immediate improvement in oxygenation. Patient was successfully extubated on 05/04/2018. Today, the patient is alert and oriented times 3 in no acute distress. She denies pain from the chest tube sites. She denies fever, chills, shortness of breath, chest pain, abdominal pain, nausea. She admits to cough and being thirsty. She is requesting water. Will plan to sign off at this patient, and she may be transferred to a step down unit possibly 2 N or 2 NE. Objective PUL Vital signs: Last Vital Signs Temp 98.0 F 05/05/18 04:06 Pulse 92 05/05/18 07:00 Resp 16 05/05/18 07:00 BP 127/64 05/05/18 07:00 Pulse Ox 97 05/05/18 07:00 General appearance: no acute distress, alert Eyes: nonicteric ENT: oropharynx moist Neck: supple Effort: normal Auscultation: bilateral: other (Course breath sounds bilaterally) Cardiovascular: regular rate and rhythm Gastrointestinal: normoactive bowel sounds, soft, non-tender Integumentary: normal Extremities: no cyanosis, pulses normal, edema (Bilateral pedal) Musculoskeletal: no deformities normal mental status, non-focal exam mood appropriate, affect normal Results - Laboratory Findings CBC and BMP: 05/05/18 03:33 05/05/18 03:33 ABG ABG pH 7.46 pH Units (7.32-7.45) H 05/04/18 04:37 ABG pCO2 35 mmHg (35-45) 05/04/18 04:37 ABG pO2 87 mmHg (85-104) 05/04/18 04:37 ABG O2 Saturation 97 % (95-98) 05/04/18 04:37 Abnormal lab findings: Abnormal lab results WBC 11.2 K/mcL (4.3-11.1) H 05/05/18 03:33 RBC 2.54 M/mcL (3.82-4.97) L 05/05/18 03:33 Hgb 7.9 g/dL (11.5-15.4) L 05/05/18 03:33 Hct 25.2 % (35.3-44.9) L 05/05/18 03:33 MCHC 31.3 g/dL (31.6-35.5) L 05/05/18 03:33 RDW 16.3 % (11.5-14.5) H 05/05/18 03:33 Plt Count 123 K/mcL (140-400) L 05/05/18 03:33 Neutrophils # 9.8 K/mcL (1.6-8.9) H 05/05/18 03:33 Lymphocytes # 0.4 K/mcL (0.6-4.6) L 05/05/18 03:33 ABG pH 7.46 pH Units (7.32-7.45) H 05/04/18 04:37 Chloride 109 mEq/L (98-107) H 05/05/18 03:33 BUN 30 mg/dL (8-23) H 05/05/18 03:33 BUN/Creatinine Ratio 49 (6-26) H 05/05/18 03:33 Calcium 8.1 mg/dL (8.6-10.3) L 05/05/18 03:33 B-Natriuretic Peptide 103 pg/mL (Less than 100) H 05/03/18 00:45 - Microbiology Findings Microbiology Findings: Microbiology, Last 48 Hours 05/03/18 10:20 Respiratory Culture - Preliminary Other-Specify in Comments 05/03/18 10:38 Body Fluid Culture - Preliminary Pleural Fluid - Clinical Findings Intake & Output: Intake & Output 05/04/18 05/04/18 05/05/18 15:59 23:59 07:59 Intake Total 1421.9 / 1421.9 1323.1 / 1323.1 1475 / 1475 Output Total 805 / 805 970 / 970 360 / 360 Balance 616.9 / 616.9 353.1 / 353.1 1115 / 1115 Weight 88.82 kg
--- NOTE | 2018-05-05 07:20 | Pulmonology Progress Note ---
Date of Encounter: 05/05/18 Time of Encounter: 07:19 Assessment and Plan (1) Acute respiratory failure with hypoxemia Current Visit: Yes Status: Acute Acute respiratory failure with hypoxemia -likely due to s/p OR for bronchoscopy with aspiration, right thoracotomy decrotication but may be contributed to by possible hospital acquired pneumonia -05/03/[address] demonstrating loculated right pleural effusion with tiny left pleural effusion. Bilateral airspace disease suggesting atelectasis or pneumonia. s/p esophagectomy with gastric ulcer. 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 Kumar. -S/p transhiatal esophagectomy and jejunostomy on 11810412. Hospital course was complicated by bilateral hemothoraces requiring bilateral chest tubes, pneumonia, acute blood loss anemia. She was discharged on 05/02/2018. -05/03/[address] demonstrating loculated right pleural effusion with tiny left pleural effusion. Bilateral airspace disease suggesting atelectasis or pneumonia. s/p esophagectomy with gastric ulcer. -05/03/2018 Chest x-ray demonstrating persistent bilateral pulmonary opacities -output from chest tubes 385cc Plan: -continue with [address] on right-sided chest -continue fentanyl PRN pain -nutrition managing TPN -cardiothoracic surgery following -chylothorax fluid cultures pending (3) Sepsis Current Visit: Yes Status: Acute Sepsis unlikely as the patient has been afebrile and WBC has significantly decreased from 20 to 13.1. Patient initially meeting sepsis criteria with SIRS criteria: tachycardia 107, WBC 20 -most likely secondary to right-sided loculated chylothorax and possible hospital acquired pneumonia -afebrile, hemodynamically stable -05/03/[address] demonstrating loculated right pleural effusion with tiny left pleural effusion. Bilateral airspace disease suggesting atelectasis or pneumonia. s/p esophagectomy with gastric ulcer. -05/03/2018 Chest x-ray demonstrating persistent bilateral pulmonary opacities -blood cultures negative to date Plan: -stopped vancomycin day 2 -continue Zosyn day 2 -sputum culture sent -chylothorax fluid sent to lab for culture Qualifiers: Qualified Code(s): A41.9 - Sepsis, unspecified organism (4) Pneumonia Current Visit: Yes Status: Acute Imaging concerning for possible pneumonia which would be hospital acquired due to recent hospitalization -05/04/2018 chest x-ray demonstrating stable cardiopulmonary status including diffuse airspace opacities, pulmonary edema, bibasilar opacities, bilateral effusions, no discrete pneumothorax -05/03/[address] demonstrating loculated right pleural effusion with tiny left pleural effusion. Bilateral airspace disease suggesting atelectasis or pneumonia. s/p esophagectomy with gastric ulcer. -05/03/2018 Chest x-ray demonstrating persistent bilateral pulmonary opacities Plan: -stopped vancomycin day 2 -continue Zosyn day 2 -sputum culture sent -duonebs prn Qualifiers: Pneumonia type: due to unspecified organism Laterality: right Lung location: unspecified part of lung Qualified Code(s): J18.9 - Pneumonia, unspecified organism (5) Loculated pleural effusion Current Visit: Yes Status: Acute 05/03/[address] demonstrating loculated right pleural effusion with tiny left pleural effusion. Bilateral airspace disease suggesting atelectasis or pneumonia. s/p esophagectomy with gastric ulcer. -Plan as above (6) Anemia Current Visit: No Status: Acute Anemia, hemoglobin at admission 10.2 -hemoglobin 6.7 > 8.0 after transfusion -unsure of source of acute of blood loss, may be from recent surgeries. Improved hemoglobin since last admission. -No obvious active bleeding -today patient required one unit PRBC due to decreased hemoglobin to 6.7 -will continue to monitor hemoglobin q6h Qualifiers: Anemia type: unspecified type Qualified Code(s): D64.9 - Anemia, unspecified (7) Tension pneumothorax Current Visit: Yes Status: Acute Resolved. Suspicion for tension pneumothorax. On 05/03/2018 after returning from surgery (bronchoscopy with aspiration of the tracheobronchial tree x 2, right thoracotomy decrotication, and chemical pleurodesis) respiratory therapy noted the patient had severe hypoxia despite be ing on the ventilator and she was then bag masked. There was suspicion of tension pneumothorax so the chest tubes were set up to suction and PEEP and tidal volume lowered on ventilator. The patient had an immediate improvement in oxygenation. -Chest x-ray on 05/04/2018 demonstrated no pneumothorax (8) Edema Current Visit: Yes Status: Acute Patient has heart failure with preserved ejection fraction, mild LV diastolic dysfunction Patient presented with new lower extremity edema. No history of heart failure. -May be dependent edema, secondary to fluids, -BNP 103 -TTE 05/03/2018: EF 55 to 60%, mild left ventricular diastolic dysfunction, no significant valvular dysfunction. -Will be cautious with IV fluids Qualifiers: Edema type: localized Qualified Code(s): R60.0 - Localized edema (9) Hypertension Current Visit: Yes Status: Acute History of hypertension taking lisinopril. Blood pressure is his low -holding home medication due to low blood pressure Qualifiers: Hypertension type: essential hypertension Qualified Code(s): I10 - Ess ential (primary) hypertension (10) History of esophagectomy Current Visit: No Status: Acute history of esophageal adenocarcinoma who is status post transhiatal esophagectomy and jejunostomy on 11810412 (11) DVT prophylaxis Current Visit: No Status: Acute SCD Subjective Principal diagnosis: Acute respiratory failure with hypoxemia Interval history: 67yo female with past medical history of esophageal adenocarcinoma who is status post transhiatal esophagectomy and jejunostomy on 11810412. Hospital course was complicated by bilateral hemothoraces requiring bilateral chest tubes, pneumonia, acute blood loss anemia. She was discharged on 05/02/2018. She presented back to the ED on 05/03/2018 complaining of dyspnea. On chest CT she was found to have a loculated right pleural effusion with tiny left pleural effusion. On 05/03/2018 she had bronchoscopy with aspiration of the tracheobr onchial tree x 2, right thoracotomy decrotication, and chemical pleurodesis by the cardiothoracic surgeon Dr. Kumar. Pulmonology/critical care was consulted today due to the patient remaining intubated on mechanical ventilation after returning from the OR. After surgery respiratory therapy noted the patient had severe hypoxia despite being on the ventilator and she was then bag masked. There was suspicion of tension pneumothorax so the chest tubes were set up to suction and PEEP and tidal volume lowered on ventilator. The patient had an immediate improvement in oxygenation. Today, the patient was successfully extubated. She reported pain on her right side where the chest tubes are in place. She denied any fever or chills. She is in no acute distress. Objective PUL Vital signs: Last Vital Signs Temp 98.0 F 05/05/18 04:06 Pulse 92 05/05/18 07:00 Resp 16 05/05/18 07:00 BP 127/64 05/05/18 07:00 Pulse Ox 97 05/05/18 07:00 Results - Laboratory Findings CBC and BMP: 05/05/18 03:33 05/05/18 03:33 ABG ABG pH 7.46 pH Units (7.32-7.45) H 05/04/18 04:37 ABG pCO2 35 mmHg (35-45) 05/04/18 04:37 ABG pO2 87 mmHg (85-104) 05/04/18 04:37 ABG O2 Saturation 97 % (95-98) 05/04/18 04:37 Abnormal lab findings: Abnormal lab results WBC 11.2 K/mcL (4.3-11.1) H 05/05/18 03:33 RBC 2.54 M/mcL (3.82-4.97) L 05/05/18 03:33 Hgb 7.9 g/dL (11.5-15.4) L 05/05/18 03:33 Hct 25.2 % (35.3-44.9) L 05/05/18 03:33 MCHC 31.3 g/dL (31.6-35.5) L 05/05/18 03:33 RDW 16.3 % (11.5-14.5) H 05/05/18 03:33 Plt Count 123 K/mcL (140-400) L 05/05/18 03:33 Neutrophils # 9.8 K/mcL (1.6-8.9) H 05/05/18 03:33 Lymphocytes # 0.4 K/mcL (0.6-4.6) L 05/05/18 03:33 ABG pH 7.46 pH Units (7.32-7.45) H 05/04/18 04:37 Chloride 109 mEq/L (98-107) H 05/05/18 03:33 BUN 30 mg/dL (8-23) H 05/05/18 03:33 BUN/Creatinine Ratio 49 (6-26) H 05/05/18 03:33 Calcium 8.1 mg/dL (8.6-10.3) L 05/05/18 03:33 B-Natriuretic Peptide 103 pg/mL (Less than 100) H 05/03/18 00:45 - Microbiology Findings Microbiology Findings: Microbiology, Last 48 Hours 05/03/18 10:20 Respiratory Culture - Preliminary Other-Specify in Comments 05/03/18 10:38 Body Fluid Culture - Preliminary Pleural Fluid - Clinical Findings Intake & Output: Intake & Output 05/04/18 05/04/18 05/05/18 15:59 23:59 07:59 Intake Total 1421.9 / 1421.9 1323.1 / 1323.1 1475 / 1475 Output Total 805 / 805 970 / 970 360 / 360 Balance 616.9 / 616.9 353.1 / 353.1 1115 / 1115 Weight 88.82 kg Consult Discharge Plan - Plan Referrals: Дмитрий Lennon MD [Partnered Physician] - 05/16/18 8:55 am Maia Barksdale CNP [Advanced Practice Nurse] - (Office is only open on , Tuesday) Alli Kumar MD [Partnered Physician] -
[2018-05-05] MEDS: Piperacillin/Tazobactam 3.375 GM in 0.9 % Sodium Chloride Mini Bag 100 ML IVPB SCH ×2 (07:43→16:31)
[2018-05-05] MEDS ORDERED: 0.9 % Sodium Chloride 1,000 ML IVC SCH (09:53)
[2018-05-05] MEDS ORDERED: Naloxone 0.4 MG/ML INJ IVP PRN (11:21)
[2018-05-05] MEDS ORDERED: D10% in Water 500 ML IVC PRN (11:25)
[2018-05-05] MEDS ORDERED: Clinimix E 5%-15% SOLUTION 2,000 ML with MVI, adult with vitamin K 10 ML IVC SCH (17:00)
[2018-05-05 20:45] LABS: Fluid Source for Cholesterol PLEURAL FLUID; Fluid Source for Triglycerides PLEURAL FLUID
[2018-05-06] MEDS: Ipratropium/Albuterol Neb 3 ML IH SCH ×6 (00:05→20:45)
[2018-05-06] MEDS: Piperacillin/Tazobactam 3.375 GM in 0.9 % Sodium Chloride Mini Bag 100 ML IVPB SCH ×3 (00:16→17:50)
[2018-05-06] MEDS: OXYCODONE Oral CONC 10 MG/0.5 ML ORAL.SYG SL PRN ×5 (02:28→22:48)
[2018-05-06 03:48] LABS: Basophils % 0.1 %; Eosinophils % 0.3 %; Hematocrit 26.4 % (35.3-44.9); Hemoglobin 8.2 g/dL (11.5-15.4); Lymphocytes # 0.4 K/mcL (0.6-4.6); Lymphocytes % 4.1 %; Mean Corpuscular HGB Conc 31.1 g/dL (31.6-35.5); Mean Corpuscular Hemoglobin 31.3 pg (28.0-33.3); Mean Corpuscular Volume 100.8 fL (83.0-100.0); Mean Platelet Volume 9.7 fL (9.4-12.4); Monocytes # 0.6 K/mcL (0.0-1.3); Monocytes % 6.8 %; Neutrophils # 7.6 K/mcL (1.6-8.9); Platelet Count 129 K/mcL (140-400); Red Blood Count 2.62 M/mcL (3.82-4.97); Red Cell Distribution Width 16.2 % (11.5-14.5); Segmented Neutrophils % 87.7 %
[2018-05-06 04:00] LABS: BUN/Creatinine Ratio 46 (6-26); Blood Urea Nitrogen 23 mg/dL (8-23); Calcium 8.1 mg/dL (8.6-10.3); Carbon Dioxide 24 mEq/L (23-29); Chloride 107 mEq/L (98-107); Glucose 143 mg/dL (70-105); Magnesium 1.9 mg/dL (1.6-2.6); Osmolality,Calculated 288 (280-300); Phosphorous 2.2 mg/dL (2.7-4.5); Potassium 3.7 mEq/L (3.5-5.1); Sodium 136 mEq/L (136-145); Triglycerides 102 mg/dL (< 150); eGFR For Non-African Americans > 60 (> 60)
--- NOTE | 2018-05-06 05:00 | Cardiothoracic Progress Note ---
Date of Encounter: 05/06/18 Time of Encounter: 04:58 - Assessment and plan (1) History of esophagectomy Current Visit: No Status: Acute The assessment and plan as outlined above was discussed with the patient and/or family members who expressed understanding and agreement. All questions were answered. We will leave the chest tubes for now. She is on TPN and diet modification. - Subjective Interval history: The patient has no complaints. Vital Signs, Last 4 Hours Temp Pulse Resp BP Pulse Ox 05/06/18 04:06 16 100 05/06/18 04:00 90 16 125/62 98 05/06/18 03:43 98.5 F 05/06/18 02:00 93 18 97 Oxgyen Flow Rate Oxygen Flow Rate (LPM) 3 Clinical Data, last 8 Hours Output, Chest Tube Drainage 20 Amount [Right Mid-Axillary Chest #1] Output, Chest Tube Drainage 0 Amount [Right Mid-Axillary Chest #1] Output, Chest Tube Drainage 0 Amount [Right Mid-Axillary Chest #2] Output, Chest Tube Drainage 0 Amount [Right Mid-Axillary Chest #2] Weight 05/04/18 05/05/18 05/06/18 23:59 23:59 23:59 Weight 88.82 kg 106.4 kg Lungs are clear to percussion and auscultation. Chest tube drainage is minimal. - Labs 05/06/18 03:29 05/06/18 03:29 Lab Results, Last 24 hours 05/06/18 05/06/18 03:29 03:29 WBC 8.6 Hgb 8.2 L Hct 26.4 L Plt Count 129 L Sodium 136 Potassium 3.7 Chloride 107 Carbon Dioxide 24 BUN 23 Creatinine 0.50 L Glucose 143 H Calcium 8.1 L Magnesium 1.9 Consult Discharge Plan - Plan Referrals: Дмитрий Lennon MD [Partnered Physician] - 05/16/18 8:55 am Maia Barksdale CNP [Advanced Practice Nurse] - (Office is only open on , Tuesday) Alli Kumar MD [Partnered Physician] -
[2018-05-06] MEDS: Pantoprazole 40 MG VIAL IVP SCH ×2 (05:20→17:52)
[2018-05-06 07:39] LABS: Cholesterol,Body Fluid 20 mg/dL; Triglycerides,Body Fluid 285 mg/dL
[2018-05-06] MEDS ORDERED: Clinimix E 5%-20% SOLUTION 2,000 ML with MVI, adult with vitamin K 10 ML IVC SCH (17:00)
[2018-05-07] MEDS: Piperacillin/Tazobactam 3.375 GM in 0.9 % Sodium Chloride Mini Bag 100 ML IVPB SCH ×4 (00:07→23:49)
[2018-05-07] MEDS: Ipratropium/Albuterol Neb 3 ML IH SCH ×7 (00:23→23:39)
--- NOTE | 2018-05-07 00:27 | Internal Med Progress Note ---
Hospitalist Progress Note - Encounter Date of Encounter: 05/06/18 Time of Encounter: 19:00 - Subjective Interval History: SUBJECTIVE: 67yo female with past medical history of esophageal adenocarcinoma who is status post transhiatal esophagectomy and jejunostomy on [id number]. Hospital course was complicated by bilateral hemothoraces requiring bilateral chest tubes, acute blood loss anemia and pneumonia. She was discharged on 05/02/2018. She presented back to the ED on 05/03/2018 complaining of dyspnea. On chest CT she was found to have a loculated right pleural effusion with tiny left pleural effusion. On 05/03/2018 she had bronchoscopy with aspiration of the tracheobronchial tree x 2, right thoracotomy decrotication, and chemical pleurodesis by the cardiothoracic surgeon Dr. Kumar. After returning from the OR the patient was on ventilator for some time. There was suspicion of tension pneumothorax, so the chest tubes were set up to suction and PEEP and tidal volume lowered on ventilator. The patient had an immediate improvement in oxygenation. Patient was successfully extubated on 05/04/2018. She continues to be extubated. She is using supplemental oxygen at 4.5 L/min. She continues to have right-sided chest tubes (3). Thoracic surgery is following this patient. The pulmonary service has signed off. The chest pain is under fair control. OBJECTIVE: Skin: Free of rash and discoloration. ENMT: Oral/pharyngeal mucosa is normal in appearance. Eyes: Sclera is white. There is no discharge from eyes. Respiratory: Normal breath sounds; no crackles or wheezes. There are 3 chest tubes attached to the right side of her chest. CV: Heart is regular; no gallop or murmur. GI: Abdomen is soft and not tender. There is no palpable mass or visceromegaly. Neuro: There is no focal deficits. ADDITIONAL DATA: Chest x-ray from today shows unchanged bilateral pleural effusions and bibasilar pulmonary opacities. There is no evidence of a pneumothorax. Hemoglobin is 8.2; 7.9 yesterday. Normal WBC. Normal electrolytes. Creatinine is 0.50. ASSESSMENT AND PLAN: Pneumonia/bilateral pleural effusion. 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 Status post esophagectomy for treatment of esophageal cancer. Acute respiratory failure with hypoxia. xxx. To continue IV Zosyn. Thoracic surgery is managing the patients right- sided chest tubes. She gets supplemental oxygen and nebulizer treatments with DuoNeb. She gets when necessary oxycodone to control her pain. The patient gets TPN nutrition. She is also on clear liquids dietas tolerated. Stress ulcer prophylaxis. She gets IV Protonix. - Exam Vitals: Temp Pulse Resp BP Pulse Ox 98.2 F 92 17 124/59 99 05/06/18 20:00 05/07/18 00:00 05/07/18 00:00 05/07/18 00:00 05/07/18 00:00 Exam: xx - Assessment and Plan (1) Pneumonia Current Visit: Yes Status: Acute (2) Pleural effusion Current Visit: Yes Status: Acute (3) Sepsis Current Visit: Yes Status: Resolved (4) Chylothorax on right Current Visit: Yes Status: Acute (5) History of esophagectomy Current Visit: No Status: Acute (6) Acute respiratory failure with hypoxia Current Visit: Yes Status: Acute - Time Spent with Patient Total time spent is greater than 50% in coordination of care (as documented) at patient's floor/unit and/or counseling patient: 25 - 35 minutes Plan of Care Discussed with: patient Internal Medicine: Result - Labs CBC & Chem 7: 05/06/18 03:29 05/06/18 03:29 Labs: Short CBC 05/06/18 Range/Units 03:29 WBC 8.6 (4.3-11.1) K/mcL Hgb 8.2 L (11.5-15.4) g/dL Hct 26.4 L (35.3-44.9) % Plt Count 129 L (140-400) K/mcL Neutrophils # 7.6 (1.6-8.9) K/mcL BMP 05/06/18 03:29 Sodium 136 Potassium 3.7 Chloride 107 Carbon Dioxide 24 BUN 23 Creatinine 0.50 L Glucose 143 H Calcium 8.1 L - ABG Interpretation ABG results: ABG ABG pH 7.46 pH Units (7.32-7.45) H 05/04/18 04:37 ABG pCO2 35 mmHg (35-45) 05/04/18 04:37 ABG pO2 87 mmHg (85-104) 05/04/18 04:37 ABG O2 Saturation 97 % (95-98) 05/04/18 04:37 - Impressions Impressions Chest X-Ray 05/06/18 08:00 IMPRESSION: 1. No significant interval change since previous examination. 2. Unchanged bilateral pleural effusions and bibasilar pulmonary opacities. No evidence of a pneumothorax. 3. Support hardware, as detailed above. D/ / Roque Horton MD / Roque Horton MD Interpreting Provider: Roque Horton MD Consult Discharge Plan - Plan Referrals: Дмитрий Lennon MD [Partnered Physician] - 05/16/18 8:55 am Maia Barksdale CNP [Advanced Practice Nurse] - (Office is only open on , Tuesday) Alli Kumar MD [Partnered Physician] - (1) Pneumonia Qualifiers: Pneumonia type: due to unspecified organism Laterality: right Lung location: unspecified part of lung Qualified Code(s): J18.9 - Pneumonia, unspecified organism (3) Sepsis Qualifiers: Qualified Code(s): A41.9 - Sepsis, unspecified organism
[2018-05-07] MEDS: OXYCODONE Oral CONC 10 MG/0.5 ML ORAL.SYG SL PRN ×5 (02:49→23:48)
[2018-05-07 03:50] LABS: Basophils % 0.1 %; Eosinophils # 0.1 K/mcL (0.0-0.6); Hemoglobin 8.1 g/dL (11.5-15.4); Immature Granulocytes % 0.7 % (0-4); Lymphocytes # 0.4 K/mcL (0.6-4.6); Lymphocytes % 5.2 %; Mean Corpuscular HGB Conc 31.2 g/dL (31.6-35.5); Mean Corpuscular Volume 99.6 fL (83.0-100.0); Mean Platelet Volume 9.4 fL (9.4-12.4); Monocytes # 0.5 K/mcL (0.0-1.3); Monocytes % 7.4 %; Neutrophils # 5.9 K/mcL (1.6-8.9); Platelet Count 111 K/mcL (140-400); Red Blood Count 2.61 M/mcL (3.82-4.97); Red Cell Distribution Width 15.8 % (11.5-14.5); Segmented Neutrophils % 85.6 %
[2018-05-07 04:08] LABS: BUN/Creatinine Ratio 46 (6-26); Blood Urea Nitrogen 18 mg/dL (8-23); Calcium 7.7 mg/dL (8.6-10.3); Carbon Dioxide 26 mEq/L (23-29); Chloride 104 mEq/L (98-107); Glucose 147 mg/dL (70-105); Magnesium 1.7 mg/dL (1.6-2.6); Osmolality,Calculated 283 (280-300); Phosphorous 2.3 mg/dL (2.7-4.5); Potassium 3.7 mEq/L (3.5-5.1); Sodium 134 mEq/L (136-145); eGFR For Non-African Americans > 60 (> 60)
[2018-05-07] MEDS: Pantoprazole 40 MG VIAL IVP SCH ×2 (06:16→17:58)
--- NOTE | 2018-05-07 10:03 | Cardiothoracic Progress Note ---
Date of Encounter: 05/07/18 Time of Encounter: 10:01 - Assessment and plan (1) History of esophagectomy Current Visit: No Status: Acute The patient will be on prolonged TPN and diet modification. - Subjective Interval history: The patient is receiving a breathing treatment and has no complaints. Vital Signs, Last 4 Hours Temp Resp Pulse Ox 05/07/18 08:30 16 100 05/07/18 07:55 97.4 F L Oxgyen Flow Rate Oxygen Flow Rate (LPM) 2 Clinical Data, last 8 Hours Output, Chest Tube Drainage 20 Amount [Right Mid-Axillary Chest #1] Output, Chest Tube Drainage 0 Amount [Right Mid-Axillary Chest #1] Output, Chest Tube Drainage 0 Amount [Right Mid-Axillary Chest #2] Output, Urine Amount 200 Output, Urine Amount 150 Weight 05/05/18 05/06/18 05/07/18 23:59 23:59 23:59 Weight 106.4 kg 106.5 kg Lungs are clear to percussion and auscultation. Heart is in a regular rate and rhythm. Chest tube drainage is minimal. - Labs 05/07/18 03:31 05/07/18 03:31 Lab Results, Last 24 hours 05/07/18 05/07/18 03:31 03:31 WBC 6.9 Hgb 8.1 L Hct 26.0 L Plt Count 111 L Sodium 134 L Potassium 3.7 Chloride 104 Carbon Dioxide 26 BUN 18 Creatinine 0.39 L Glucose 147 H Calcium 7.7 L Magnesium 1.7 Consult Discharge Plan - Plan Referrals: Дмитрий Lennon MD [Partnered Physician] - 05/16/18 8:55 am Maia Barksdale CNP [Advanced Practice Nurse] - (Office is only open on , Tuesday) Alli Kumar MD [Partnered Physician] -
[2018-05-07] MEDS: Clinimix E 5%-20% SOLUTION 2,000 ML with MVI, adult with vitamin K 10 ML IVC SCH (17:57)
--- NOTE | 2018-05-07 21:02 | Internal Med Progress Note ---
Hospitalist Progress Note - Encounter Date of Encounter: 05/07/18 Time of Encounter: 19:00 - Subjective Interval History: SUBJECTIVE: The patient feels pretty good today. The pain resulting from her recent surgery is under control. Denies chest pain. Denies difficulty breathing; on 2 L/min nasal cannula oxygen. Denies coughing and wheezing. Denies abdominal pain, nausea and vomiting. She makes good amounts of urine. She is developing redness and some discharge in the area of her surgical wound located below the left rib cageanteriorly. Not associated with fever or chills. 67yo female with past medical history of esophageal adenocarcinoma who is status post transhiatal esophagectomy and jejunostomy on [id number]. Hospital course was complicated by bilateral hemothoraces requiring bilateral chest tubes, acute blood loss anemia and pneumonia. She was discharged on 05/02/2018. She presented back to the ED on 05/03/2018 complaining of dyspnea. On chest CT she was found to have a loculated right pleural effusion with tiny left pleural effusion. On 05/03/2018 she had bronchoscopy with aspiration of the tracheobronchial tree x 2, right thoracotomy decrotication, and chemical pleurodesis by the cardiothoracic surgeon Dr. Kumar. After returning from the OR the patient was on ventilator for some time. There was suspicion of tension pneumothorax, so the chest tubes were set up to suction and PEEP and tidal volume lowered on ventilator. The patient had an immediate improvement in oxygenation. Patient was successfully extubated on 05/04/2018. She continues to be extubated. She is using supplemental oxygen at 4.5 L/min. She continues to have right-sided chest tubes (3). Thoracic surgery is following this patient. The pulmonary service has signed off. OBJECTIVE: Skin: Free of rash and discoloration. There is a small area of redness in the area of surgical wound located below the left rib cageanteriorly. It is assoc iated with some drainage from the woundserous fluids. ENMT: Oral/pharyngeal mucosa is normal in appearance. Eyes: Sclera is white. There is no discharge from eyes. Respiratory: Normal breath sounds; no crackles or wheezes. There are 3 chest tubes attached to the right side of her chest. CV: Heart is regular; no gallop or murmur. GI: Abdomen is soft and not tender. There is no palpable mass or visceromegaly. Neuro: There is no focal deficits. ADDITIONAL DATA: Chest x-ray from yesterday shows unchanged bilateral pleural effusions and bibasilar pulmonary opacities. There is no evidence of a pneumothorax. Hemoglobin is 8.1 (8.2 yesterday) with normal WBC. Platelet count is 111,000; 129,000 yesterday. Normal electrolytes. Creatinine is 0.39. ASSESSMENT AND PLAN: Pneumonia/bilateral pleural effusion. 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 Status post esophagectomy for treatment of esophageal cancer. Acute respiratory failure with hypoxia. xxx. To continue IV Zosyn. Thoracic surgery is managing the patients right- sided chest tubes. She gets supplemental oxygen and nebulizer treatments with DuoNeb. She gets when necessary oxycodone to control her pain. The patient gets TPN nutrition. She is also on clear liquids dietas tolerated. Stress ulcer prophylaxis. She gets IV Protonix. We will discuss with the surgery further management (including developing infection of one of her surgical wounds). - Exam Vitals: Temp Pulse Resp BP Pulse Ox 99.0 F 100 21 140/72 98 05/07/18 19:16 05/07/18 19:16 05/07/18 20:25 05/07/18 19:16 05/07/18 20:25 Exam: xx - Assessment and Plan (1) Pneumonia Current Visit: Yes Status: Acute (2) Pleural effusion Current Visit: Yes Status: Acute (3) Sepsis Current Visit: Yes Status: Resolved (4) Chylothorax on right Current Visit: Yes Status: Acute (5) History of esophagectomy Current Visit: No Status: Acute (6) Acute respiratory failure with hypoxia Current Visit: Yes Status: Acute - Time Spent with Patient Total time spent is greater than 50% in coordination of care (as documented) at patient's floor/unit and/or counseling patient: 25 - 35 minutes Plan of Care Discussed with: patient Internal Medicine: Result - Labs CBC & Chem 7: 05/07/18 03:31 05/07/18 03:31 Labs: Short CBC 05/07/18 Range/Units 03:31 WBC 6.9 (4.3-11.1) K/mcL Hgb 8.1 L (11.5-15.4) g/dL Hct 26.0 L (35.3-44.9) % Plt Count 111 L (140-400) K/mcL Neutrophils # 5.9 (1.6-8.9) K/mcL BMP 05/07/18 03:31 Sodium 134 L Potassium 3.7 Chloride 104 Carbon Dioxide 26 BUN 18 Creatinine 0.39 L Glucose 147 H Calcium 7.7 L - ABG Interpretation ABG results: ABG ABG pH 7.46 pH Units (7.32-7.45) H 05/04/18 04:37 ABG pCO2 35 mmHg (35-45) 05/04/18 04:37 ABG pO2 87 mmHg (85-104) 05/04/18 04:37 ABG O2 Saturation 97 % (95-98) 05/04/18 04:37 Consult Discharge Plan - Plan Referrals: Дмитрий Lennon MD [Partnered Physician] - 05/16/18 8:55 am Maia Barksdale CNP [Advanced Practice Nurse] - (Office is only open on , Tuesday) Alli Kumar MD [Partnered Physician] - (1) Pneumonia Qualifiers: Pneumonia type: due to unspecified organism Laterality: right Lung location: unspecified part of lung Qualified Code(s): J18.9 - Pneumonia, unspecified organism (3) Sepsis Qualifiers: Qualified Code(s): A41.9 - Sepsis, unspecified organism
[2018-05-08] MEDS: OXYCODONE Oral CONC 10 MG/0.5 ML ORAL.SYG SL PRN ×5 (03:23→23:14)
[2018-05-08] MEDS: Ipratropium/Albuterol Neb 3 ML IH SCH ×6 (03:26→23:20)
[2018-05-08 04:19] LABS: BUN/Creatinine Ratio 38 (6-26); Blood Urea Nitrogen 15 mg/dL (8-23); Calcium 7.9 mg/dL (8.6-10.3); Carbon Dioxide 29 mEq/L (23-29); Chloride 102 mEq/L (98-107); Glucose 132 mg/dL (70-105); Magnesium 1.7 mg/dL (1.6-2.6); Osmolality,Calculated 281 (280-300); Phosphorous 2.5 mg/dL (2.7-4.5); Potassium 3.6 mEq/L (3.5-5.1); Sodium 134 mEq/L (136-145); eGFR For Non-African Americans > 60 (> 60)
[2018-05-08] MEDS: Pantoprazole 40 MG VIAL IVP SCH ×2 (06:46→17:26)
[2018-05-08] MEDS: Piperacillin/Tazobactam 3.375 GM in 0.9 % Sodium Chloride Mini Bag 100 ML IVPB SCH ×3 (07:47→23:15)
--- NOTE | 2018-05-08 14:34 | Cardiothoracic Progress Note ---
Date of Encounter: 05/08/18 Time of Encounter: 14:33 - Assessment and plan (1) Acute respiratory failure with hypoxemia Current Visit: Yes Status: Acute The assessment and plan as outlined above was discussed with the patient and/or family members who expressed understanding and agreement. All questions were answered. 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 All questions were answered. chest tubes not on suction despite orders. will plan soft diet at the end of the week, tuesday - Subjective Interval history: feels great Vital Signs, Last 4 Hours Temp Pulse Resp BP Pulse Ox 05/08/18 11:14 20 100 05/08/18 11:13 98.1 F 91 131/72 90 Oxgyen Flow Rate Oxygen Flow Rate (LPM) 4 Clinical Data, last 8 Hours Output, Chest Tube Drainage 5 Amount [Right Mid-Axillary Chest #1] Output, Chest Tube Drainage 0 Amount [Right Mid-Axillary Chest #1] Output, Chest Tube Drainage 5 Amount [Right Mid-Axillary Chest #2] Output, Chest Tube Drainage 0 Amount [Right Mid-Axillary Chest #2] Output, Urine Amount 150 Output, Urine Amount 300 Output, Urine Amount 250 Output, Urine Amount 1,000 Weight 05/06/18 05/07/18 05/08/18 23:59 23:59 23:59 Weight 106.4 kg 106.5 kg 100.6 kg - Physical Examination General: Conversant, No Apparent Distress, Well developed, Well nourished HEENT: Atraumatic, Normocephaly, Trachea midline Cardiac: Reg Rate and Rhythm, Normal S1 and S2, No Murmur Incision: No signs of infection, Dry/intact dressing Chest tubes: Minimal drainage Lungs: Normal Breath Sounds Neuro: Alert and responsive, No focal deficits noted, Cranial nerves intact Vascular: Normal capillary refill Abdomen: Soft, Non-tender Extremities: Other (edema ) - Labs 05/07/18 03:31 05/08/18 03:30 Lab Results, Last 24 hours 05/08/18 03:30 Sodium 134 L Potassium 3.6 Chloride 102 Carbon Dioxide 29 BUN 15 Creatinine 0.40 L Glucose 132 H Calcium 7.9 L Magnesium 1.7 Consult Discharge Plan - Plan Referrals: Дмитрий Lennon MD [Partnered Physician] - 05/16/18 8:55 am Maia Barksdale CNP [Advanced Practice Nurse] - (Office is only open on , Tuesday) Alli Kumar MD [Partnered Physician] - 06/05/18 9:35 am
[2018-05-08] MEDS ORDERED: Clinimix E 5%-20% SOLUTION 2,000 ML with MVI, adult with vitamin K 10 ML IVC SCH (17:00)
[2018-05-08] MEDS: Clinimix E 5%-20% SOLUTION 2,000 ML with MVI, adult with vitamin K 10 ML IVC SCH (17:14)
[2018-05-09] MEDS: OXYCODONE Oral CONC 10 MG/0.5 ML ORAL.SYG SL PRN ×4 (03:35→23:24)
[2018-05-09 04:02] LABS: BUN/Creatinine Ratio 39 (6-26); Blood Urea Nitrogen 15 mg/dL (8-23); Calcium 8.2 mg/dL (8.6-10.3); Carbon Dioxide 31 mEq/L (23-29); Chloride 102 mEq/L (98-107); Glucose 154 mg/dL (70-105); Magnesium 1.7 mg/dL (1.6-2.6); Osmolality,Calculated 284 (280-300); Phosphorous 2.7 mg/dL (2.7-4.5); Potassium 3.6 mEq/L (3.5-5.1); Sodium 135 mEq/L (136-145); eGFR For Non-African Americans > 60 (> 60)
--- NOTE | 2018-05-09 04:02 | Internal Med Progress Note ---
Hospitalist Progress Note - Encounter Date of Encounter: 05/08/18 Time of Encounter: 19:00 - Subjective Interval History: SUBJECTIVE: The patient continues on TPN and clear liquids diet. She has her pain from surgical wounds under control. She is moved from ICU. On 3 L/min nasal cannula oxygen. Pulse ox is 95%. OBJECTIVE: Skin: Free of rash and discoloration. There is a small area of redness in the area of surgical wound located below the left rib cageanteriorly. It is associated with some drainage of serous fluid. ENMT: Oral/pharyngeal mucosa is normal in appearance. Eyes: Sclera is white. There is no discharge from eyes. Respiratory: Normal breath sounds; no crackles or wheezes. There are 3 chest tubes attached to the right side of her chest. CV: Heart is regular; no gallop or murmur. GI: Abdomen is soft and not tender. There is no palpable mass or visceromegaly. Neuro: There is no focal deficits. ADDITIONAL DATA: Normal electrolytes. Creatinine is 0.40. Fasting glucose is 132. ASSESSMENT AND PLAN: Pneumonia/bilateral pleural effusion. 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 Status post esophagectomy for treatment of esophageal cancer. Acute respiratory failure with hypoxia. xxx. To continue IV Zosyn. Thoracic surgery is managing the patients right- sided chest tubes. She gets supplemental oxygen and nebulizer treatments with DuoNeb. She gets when necessary oxycodone to control her pain. The patient gets TPN nutrition. She is also on clear liquids dietas tolerated. Dr. Lennon, general surgery evaluated the patient and her surgical wounds today morning. Stress ulcer prophylaxis. She gets IV Protonix. - Exam Vitals: Temp Pulse Resp BP Pulse Ox 98.4 F 93 18 154/73 98 05/09/18 03:26 05/09/18 03:26 05/09/18 03:26 05/09/18 03:26 05/09/18 03:26 Exam: xx - Assessment and Plan (1) Pneumonia Current Visit: Yes Status: Acute (2) Pleural effusion Current Visit: Yes Status: Acute (3) Sepsis Current Visit: Yes Status: Resolved (4) Chylothorax on right Current Visit: Yes Status: Acute (5) History of esophagectomy Current Visit: No Status: Acute (6) Acute respiratory failure with hypoxia Current Visit: Yes Status: Acute - Time Spent with Patient Total time spent is greater than 50% in coordination of care (as documented) at patient's floor/unit and/or counseling patient: 25 - 35 minutes Plan of Care Discussed with: patient Internal Medicine: Result - Labs CBC & Chem 7: 05/07/18 03:31 05/08/18 03:30 Labs: BMP 05/08/18 03:30 Sodium 134 L Potassium 3.6 Chloride 102 Carbon Dioxide 29 BUN 15 Creatinine 0.40 L Glucose 132 H Calcium 7.9 L - ABG Interpretation ABG results: ABG ABG pH 7.46 pH Units (7.32-7.45) H 05/04/18 04:37 ABG pCO2 35 mmHg (35-45) 05/04/18 04:37 ABG pO2 87 mmHg (85-104) 05/04/18 04:37 ABG O2 Saturation 97 % (95-98) 05/04/18 04:37 Consult Discharge Plan - Plan Referrals: Дмитрий Lennon MD [Partnered Physician] - 05/16/18 8:55 am Maia Barksdale, FADIA [Advanced Practice Nurse] - (Office is only open on , Tuesday) Alli Kumar MD [Partnered Physician] - 06/05/18 9:35 am (1) Pneumonia Qualifiers: Pneumonia type: due to unspecified organism Laterality: right Lung location: unspecified part of lung Qualified Code(s): J18.9 - Pneumonia, unspecified organism (3) Sepsis Qualifiers: Qualified Code(s): A41.9 - Sepsis, unspecified organism
[2018-05-09] MEDS: Ipratropium/Albuterol Neb 3 ML IH SCH ×6 (04:11→23:43)
[2018-05-09] MEDS: Pantoprazole 40 MG VIAL IVP SCH ×2 (05:43→16:57)
[2018-05-09] MEDS: Piperacillin/Tazobactam 3.375 GM in 0.9 % Sodium Chloride Mini Bag 100 ML IVPB SCH ×3 (07:46→23:25)
--- NOTE | 2018-05-09 09:41 | Cardiothoracic Progress Note ---
Date of Encounter: 05/09/18 Time of Encounter: 09:39 - Assessment and plan (1) Acute respiratory failure with hypoxemia Current Visit: Yes Status: Acute The assessment and plan as outlined above was discussed with the patient and/or family members who expressed understanding and agreement. All questions were answered. 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 All questions were answered. removed 1 chest tube and up drain. chest tubes not on suction despite orders. will plan soft diet at the end of the week, tuesday (3) Wound infection after surgery Current Visit: Yes Status: Acute The assessment and plan as outlined above was discussed with the patient and/or family members who expressed understanding and agreement. All questions were answered. dr. alejandro will come and evaluate the wound - Subjective Interval history: bloody gown Vital Signs, Last 4 Hours Temp Pulse Resp BP Pulse Ox 05/09/18 07:24 98.2 F 105 20 150/76 92 05/09/18 07:12 18 99 Oxgyen Flow Rate Oxygen Flow Rate (LPM) 2 Clinical Data, last 8 Hours Output, Chest Tube Drainage 20 Amount [Right Mid-Axillary Chest #1] Output, Chest Tube Drainage 20 Amount [Right Mid-Axillary Chest #1] Output, Chest Tube Drainage 20 Amount [Right Mid-Axillary Chest #2] Output, Chest Tube Drainage 0 Amount [Right Mid-Axillary Chest #2] Output, Urine Amount 200 Output, Urine Amount 200 Output, Urine Amount 300 Weight 05/07/18 05/08/18 05/09/18 23:59 23:59 23:59 Weight 106.5 kg 100.6 kg 98.9 kg - Physical Examination General: Conversant, No Apparent Distress HEENT: Atraumatic, Normocephaly Cardiac: Reg Rate and Rhythm, Normal S1 and S2 Incision: Other (chest incisions clean. abdominal incision with cellulitis and purulent drainage) Chest tubes: Minimal drainage Lungs: Normal Breath Sounds Neuro: Alert and responsive, No focal deficits noted, Cranial nerves intact - Labs 05/07/18 03:31 05/09/18 03:32 Lab Results, Last 24 hours 05/09/18 03:32 Sodium 135 L Potassium 3.6 Chloride 102 Carbon Dioxide 31 H BUN 15 Creatinine 0.38 L Glucose 154 H Calcium 8.2 L Magnesium 1.7 Consult Discharge Plan - Plan Referrals: Дмитрий Alejandro MD [Partnered Physician] - 05/16/18 8:55 am Maia Barksdale CNP [Advanced Practice Nurse] - (Office is only open on , Tuesday) Alli Kumar MD [Partnered Physician] - 06/05/18 9:35 am
--- NOTE | 2018-05-09 13:23 | Event Note ---
Date of Encounter: 05/09/18 Time of Encounter: 13:22 [place] from abdomen and network were removed. Steri-Strips placed. The left lateral abdomen incision was with erythema and drainage of hematoma fluid. This area was opened and packing was placed. The right lateral abdomen is also with an area of. Incisional erythema. This area was opened and serous fluid drained. Iodoform packing was placed. She will need daily wound care (see wound care orders).
[2018-05-09] MEDS ORDERED: Clinimix E 5%-20% SOLUTION 2,000 ML with MVI, adult with vitamin K 10 ML IVC SCH (17:00)
[2018-05-10] MEDS: Ipratropium/Albuterol Neb 3 ML IH SCH ×5 (03:03→20:39)
--- NOTE | 2018-05-10 03:32 | Internal Med Progress Note ---
Hospitalist Progress Note - Encounter Date of Encounter: 05/09/18 Time of Encounter: 19:00 - Subjective Interval History: SUBJECTIVE: The patient feels pretty good. Her pain is under control. Denies difficulty breathing; using supplemental oxygen at 2 L/min nasal cannula (her baseline he is now oxygen). She continues with TPN and clear liquids diet. Denies abdominal pain, nausea and vomiting. She makes good amounts of urine. OBJECTIVE: Skin: Free of rash and discoloration. The surgical wound located below the left rib cage (anteriorly) is looking better. The redness has decreased in intensity. She seems to have less discharge from that area. ENMT: Oral/pharyngeal mucosa is normal in appearance. Eyes: Sclera is white. There is no discharge from eyes. Respiratory: Normal breath sounds; no crackles or wheezes. There are 3 chest tubes attached to the right side of her chest. CV: Heart is regular; no gallop or murmur. GI: Abdomen is soft and not tender. There is no palpable mass or visceromegaly. Neuro: There is no focal deficits. ADDITIONAL DATA: Electrolytes are normal. Creatinine is 0.38. Fasting glucose by BMP is 154. CBC from 2 days ago showed hemoglobin of 8.1 with normal WBC/platelet count. ASSESSMENT AND PLAN: Pneumonia/bilateral pleural effusion. 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 Status post esophagectomy for treatment of esophageal cancer. Acute respiratory failure with hypoxia. xxx. On IV Zosyn. One of chest tubes has been removed today. It is managed by thoracic surgery. The patient will likely be advanced from clear liquids to more advanced diet on Tuesday Stress ulcer prophylaxis. I will substitute IV Protonix with oral tablets. - Exam Vitals: Temp Pulse Resp BP Pulse Ox 98.4 F 102 18 145/77 95 05/09/18 23:10 05/09/18 23:10 05/10/18 03:03 05/09/18 23:10 05/10/18 03:03 Exam: xx - Assessment and Plan (1) Pneumonia Current Visit: Yes Status: Acute (2) Pleural effusion Current Visit: Yes Status: Acute (3) Chylothorax on right Current Visit: Yes Status: Acute (4) History of esophagectomy Current Visit: No Status: Acute (5) Acute respiratory failure with hypoxia Current Visit: Yes Status: Acute - Time Spent with Patient Total time spent is greater than 50% in coordination of care (as documented) at patient's floor/unit and/or counseling patient: 25 - 35 minutes Plan of Care Discussed with: patient Internal Medicine: Result - Labs CBC & Chem 7: 05/07/18 03:31 05/09/18 03:32 Labs: BMP 05/09/18 03:32 Sodium 135 L Potassium 3.6 Chloride 102 Carbon Dioxide 31 H BUN 15 Creatinine 0.38 L Glucose 154 H Calcium 8.2 L - ABG Interpretation ABG results: ABG ABG pH 7.46 pH Units (7.32-7.45) H 05/04/18 04:37 ABG pCO2 35 mmHg (35-45) 05/04/18 04:37 ABG pO2 87 mmHg (85-104) 05/04/18 04:37 ABG O2 Saturation 97 % (95-98) 05/04/18 04:37 Consult Discharge Plan - Plan Referrals: Дмитрий Lennon MD [Partnered Physician] - 05/16/18 8:55 am Maia Barksdale, [employer] [Advanced Practice Nurse] - (Office is only open on on. , Tuesday) Alli Kumar MD [Partnered Physician] - 06/05/18 9:35 am __ (1) Pneumonia Qualifiers: Pneumonia type: due to unspecified organism Laterality: right Lung location: unspecified part of lung Qualified Code(s): J18.9 - Pneumonia, unspecified organism
[2018-05-10 04:20] LABS: BUN/Creatinine Ratio 37 (6-26); Blood Urea Nitrogen 15 mg/dL (8-23); Calcium 7.7 mg/dL (8.6-10.3); Carbon Dioxide 31 mEq/L (23-29); Chloride 100 mEq/L (98-107); Glucose 140 mg/dL (70-105); Magnesium 1.7 mg/dL (1.6-2.6); Osmolality,Calculated 283 (280-300); Phosphorous 2.7 mg/dL (2.7-4.5); Potassium 3.5 mEq/L (3.5-5.1); Sodium 135 mEq/L (136-145); eGFR For Non-African Americans > 60 (> 60)
[2018-05-10] MEDS: Pantoprazole 40 MG VIAL IVP SCH ×2 (06:20→16:43)
[2018-05-10] MEDS: OXYCODONE Oral CONC 10 MG/0.5 ML ORAL.SYG SL PRN ×4 (06:30→23:28)
[2018-05-10] MEDS: Piperacillin/Tazobactam 3.375 GM in 0.9 % Sodium Chloride Mini Bag 100 ML IVPB SCH ×3 (07:41→23:24)
--- NOTE | 2018-05-10 09:37 | Cardiothoracic Progress Note ---
Date of Encounter: 05/10/18 Time of Encounter: 09:35 - Assessment and plan (1) Acute respiratory failure with hypoxemia Current Visit: Yes Status: Acute The assessment and plan as outlined above was discussed with the patient and/or family members who expressed understanding and agreement. All questions were answered. 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 All questions were answered. replace k, po, mg. orders for ambulation. will plan soft diet at the end of the week, tuesday (3) Wound infection after surgery Current Visit: Yes Status: Acute The assessment and plan as outlined above was discussed with the patient and/or family members who expressed understanding and agreement. All questions were answered. dr. alejandro will come and evaluate the wound - Subjective Interval history: frequent urination Vital Signs, Last 4 Hours Temp Pulse Resp BP Pulse Ox 05/10/18 08:16 89 18 136/78 100 05/10/18 08:08 16 94 05/10/18 07:26 98.5 F 88 18 139/76 97 Oxgyen Flow Rate Oxygen Flow Rate (LPM) 9 Clinical Data, last 8 Hours Output, Chest Tube Drainage 50 Amount [Right Mid-Axillary Chest #1] Output, Urine Amount 300 Output, Urine Amount 250 Weight 05/08/18 05/09/18 05/10/18 23:59 23:59 23:59 Weight 100.6 kg 98.9 kg - Physical Examination General: Conversant, No Apparent Distress, Well developed HEENT: Atraumatic, Normocephaly, Trachea midline Cardiac: Reg Rate and Rhythm, Normal S1 and S2, No Murmur Incision: Dry/intact dressing Lungs: Normal Breath Sounds Neuro: Alert and responsive, No focal deficits noted, Cranial nerves intact, Motor nerves intact - Labs 05/07/18 03:31 05/10/18 03:45 Lab Results, Last 24 hours 05/10/18 03:45 Sodium 135 L Potassium 3.5 Chloride 100 Carbon Dioxide 31 H BUN 15 Creatinine 0.41 L Glucose 140 H Calcium 7.7 L Magnesium 1.7 - Imaging Chest Xray: image reviewed Consult Discharge Plan - Plan Referrals: Дмитрий Alejandro MD [Partnered Physician] - 05/16/18 8:55 am Maia Barksdale CNP [Advanced Practice Nurse] - (Office is only open on , Tuesday) Alli Kumar MD [Partnered Physician] - 06/05/18 9:35 am
--- NOTE | 2018-05-10 09:45 | Event Note ---
<Princess Villalba A - Last Filed: 05/10/18 09:43> Date of Encounter: 05/10/18 Time of Encounter: 09:00 Patient s/p #1 transhiatal esophagectomy #2 jejunostomy on 04/21/[address] Lennon for esophageal cancer. Patient seen yesterday for incision check. LUQ incision opened and non-infected hematoma drained. Wound packed with plain gauze. Moderate amount of serousang. drainage noted today. No surrounding erythema or induration noted. Area is non-tender. Continue with daily packing per orders. F/U as outpatient as scheduled on 05/16/18 at 8:55am with Dr. Lennon. <Дмитрий Lennon - Last Filed: 05/11/18 10:07> Date of Encounter: 05/11/18 The patient is seen and evaluated on morning rounds. The incisional hematoma is draining normally the drainage is falling off significantly. We are waiting for the pleurodesis of the right chest to be effective before attempting complex gut feedings A;luca Lennon MD FACS
[2018-05-10 11:17] LABS: Bilirubin,Urine Negative (Negative); Blood,Urine Negative (Negative); Color,Urine Yellow (Yellow); Glucose,Urine (UA) Normal (Normal); Ketones,Urine Negative (Negative); Leukocyte Esterase,Urine Negative (Negative); Nitrite,Urine Negative (Negative); PH,Urine 7.5 pH Units (5.0-8.0); Protein,Urine Negative (Neg-Trace); Specific Gravity,Urine 1.013 (1.010-1.025); Urobilinogen,Urine Normal (Normal)
[2018-05-10 11:27] LABS: Clarity,Urine Clear (Clear)
--- NOTE | 2018-05-10 15:05 | Internal Med Progress Note ---
Hospitalist Progress Note - Encounter Date of Encounter: 05/10/18 Time of Encounter: 11:45 - Subjective Interval History: Patient is lying down in bed. Comfortable. Pain in abdomen controlled. Denies any chest pain or palpitations. Shortness of breath is improving. No fever or chills reported overnight. No nausea or vomiting. - Exam Vitals: Temp Pulse Resp BP Pulse Ox 98.4 F 101 22 126/75 97 05/10/18 12:04 05/10/18 12:04 05/10/18 12:04 05/10/18 12:04 05/10/18 12:04 Exam: General: Patient is alert, mild distress, oriented x 3 ENT: Mucous membranes moist Respiratory: Decreased breath sounds at both bases Right-sided chest tubes in place Cardiovascular: Regular rate and rhythm. s1 and s2 normal No clicks, rubs, gallops, or murmurs. No pedal edema Abdomen: Abdomen is soft, mild tenderness at surgical site. Bowel sounds are present Musculoskeletal: Spontaneously moving all extremities Skin: warm, dry, intact. Neuro: Alert oriented x 3 normal cranial nerves, no focal deficits - Assessment and Plan (1) Acute respiratory failure with hypoxia Current Visit: Yes Status: Acute Assessment and Plan: Improving. Patient is currently on 2 L nasal cannula. (2) Pneumonia Current Visit: Yes Status: Acute Assessment and Plan: Patient is currently on Zosyn. Pleural fluid cultures have been negative. Blood cultures have also been negative. Clinically unable to determine organism causing pneumonia. (3) Pleural effusion Current Visit: Yes Status: Acute Assessment and Plan: Due to chylothorax on the right side. Status post right thoracotomy and decortication and chemical pleurodesis. Chest tubes in place. Plan to possibly remove chest tube later this week. Cardiothoracic surgery following. (4) History of esophagectomy Current Visit: Yes Status: Acute Assessment and Plan: Patient is status post transhiatal esophagectomy and jejunostomy done last month. 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 (6) Morbid obesity with BMI of 45.0-49.9, adult Current Visit: Yes Status: Chronic - Time Spent with Patient Total time spent is greater than 50% in coordination of care (as documented) at patient's floor/unit and/or counseling patient: Internal Medicine: Result - Labs CBC & Chem 7: 05/07/18 03:31 05/10/18 03:45 Labs: BMP 05/10/18 03:45 Sodium 135 L Potassium 3.5 Chloride 100 Carbon Dioxide 31 H BUN 15 Creatinine 0.41 L Glucose 140 H Calcium 7.7 L Urine 05/10/18 Range/Units 10:50 Urine Color Yellow (Yellow) Urine Clarity Clear (Clear) Urine pH 7.5 (5.0-8.0) pH Units Ur Specific [place] 1.013 (1.010-1.025) Urine Protein Negative (Neg-Trace) mg/dL Urine Glucose (UA) Normal (Normal) mg/dL - ABG Interpretation ABG results: ABG ABG pH 7.46 pH Units (7.32-7.45) H 05/04/18 04:37 ABG pCO2 35 mmHg (35-45) 05/04/18 04:37 ABG pO2 87 mmHg (85-104) 05/04/18 04:37 ABG O2 Saturation 97 % (95-98) 05/04/18 04:37 - Impressions Impressions Chest X-Ray 05/10/18 08:00 IMPRESSION: Slightly improved pleural effusions and airspace changes in the lower lungs. D/ / Bogdan Richard MD / Bogdan Richard MD Interpreting Provider: Bogdan Richard MD Consult Discharge Plan - Plan Referrals: Дмитрий Lennon MD [Partnered Physician] - 05/16/18 8:55 am Maia Barksdale, FADIA [Advanced Practice Nurse] - (Office is only open on , Tuesday) Alli Kumar MD [Partnered Physician] - 06/05/18 9:35 am ___ (2) Pneumonia Qualifiers: Pneumonia type: due to unspecified organism Laterality: right Lung location: unspecified part of lung Qualified Code(s): J18.9 - Pneumonia, unspecified organism
[2018-05-10] MEDS ORDERED: Clinimix E 5%-20% SOLUTION 2,000 ML with MVI, adult with vitamin K 10 ML IVC SCH (17:00)
[2018-05-11] MEDS: Ipratropium/Albuterol Neb 3 ML IH SCH ×6 (00:06→20:13)
[2018-05-11 03:37] LABS: BUN/Creatinine Ratio 34 (6-26); Blood Urea Nitrogen 16 mg/dL (8-23); Calcium 8.1 mg/dL (8.6-10.3); Carbon Dioxide 30 mEq/L (23-29); Chloride 100 mEq/L (98-107); Glucose 142 mg/dL (70-105); Osmolality,Calculated 284 (280-300); Phosphorous 2.7 mg/dL (2.7-4.5); Potassium 3.5 mEq/L (3.5-5.1); Sodium 135 mEq/L (136-145); eGFR For Non-African Americans > 60 (> 60)
[2018-05-11] MEDS: OXYCODONE Oral CONC 10 MG/0.5 ML ORAL.SYG SL PRN ×4 (04:39→20:09)
[2018-05-11] MEDS: *HR* Enoxaparin 40 MG/0.4 ML SYRINGE SQ SCH (05:43)
[2018-05-11] MEDS: Pantoprazole 40 MG VIAL IVP SCH ×2 (05:43→16:06)
[2018-05-11] MEDS: Piperacillin/Tazobactam 3.375 GM in 0.9 % Sodium Chloride Mini Bag 100 ML IVPB SCH ×2 (07:25→15:41)
--- NOTE | 2018-05-11 09:58 | Cardiothoracic Progress Note ---
Date of Encounter: 05/11/18 Time of Encounter: 09:56 - Assessment and plan (1) Acute respiratory failure with hypoxemia Current Visit: Yes Status: Acute The assessment and plan as outlined above was discussed with the patient and/or family members who expressed understanding and agreement. All questions were answered. 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 All questions were answered. replace k, po, mg. orders for ambulation. will plan soft diet at the end of the week, tuesday (3) Wound infection after surgery Current Visit: Yes Status: Acute The assessment and plan as outlined above was discussed with the patient and/or family members who expressed understanding and agreement. All questions were answered. dressings changes per gen surg - Subjective Interval history: none Vital Signs, Last 4 Hours Temp Pulse Resp BP Pulse Ox 05/11/18 08:03 18 94 05/11/18 07:52 98.3 F 81 16 125/86 95 Oxgyen Flow Rate Oxygen Flow Rate (LPM) 2 Clinical Data, last 8 Hours Output, Chest Tube Drainage 34 Amount [Right Mid-Axillary Chest #1] Output, Chest Tube Drainage 27 Amount [Right Mid-Axillary Chest #1] Output, Urine Amount 240 Output, Urine Amount 200 Output, Urine Amount 150 Weight 05/09/18 05/10/18 05/11/18 23:59 23:59 23:59 Weight 98.9 kg 96.2 kg - Physical Examination General: Conversant, No Apparent Distress HEENT: Atraumatic, Normocephaly Cardiac: Reg Rate and Rhythm, Normal S1 and S2 Incision: No signs of infection, Dry/intact dressing Chest tubes: Other (serous ) Lungs: Normal Breath Sounds Neuro: Alert and responsive, No focal deficits noted, Cranial nerves intact, Mo tor nerves intact Abdomen: Soft, Non-tender Extremities: Other (edema) - Labs 05/07/18 03:31 05/11/18 03:05 Lab Results, Last 24 hours 05/11/18 03:05 Sodium 135 L Potassium 3.5 Chloride 100 Carbon Dioxide 30 H BUN 16 Creatinine 0.47 L Glucose 142 H Calcium 8.1 L Magnesium 2.0 - Imaging Chest Xray: image reviewed Consult Discharge Plan - Plan Referrals: Дмитрий Lennon MD [Partnered Physician] - 05/16/18 8:55 am Maia Barksdale CNP [Advanced Practice Nurse] - (Office is only open on , Tuesday) Alli Kumar MD [Partnered Physician] - 06/05/18 9:35 am
--- NOTE | 2018-05-11 15:16 | Internal Med Progress Note ---
Hospitalist Progress Note - Encounter Date of Encounter: 05/11/18 Time of Encounter: 10:05 - Subjective Interval History: Patient is awake and alert. Lying down in bed. Comfortable. Denies any chest pain. No significant shortness of breath. No fever or chills reported overnight. - Exam Vitals: Temp Pulse Resp BP Pulse Ox 98.4 F 87 18 126/67 94 05/11/18 10:56 05/11/18 10:56 05/11/18 11:42 05/11/18 10:56 05/11/18 11:42 Exam: General: Patient is alert, no acute distress, oriented x 3 ENT: Mucous membranes moist Respiratory: Decreased breath sounds at both bases. Right-sided chest tubes in place. Cardiovascular: Regular rate and rhythm. s1 and s2 normal No clicks, rubs, gallops, or murmurs. Mild bilateral pedal edema Abdomen: Abdomen is soft, nontender. Bowel sounds are present Musculoskeletal: Spontaneously moving all extremities Skin: warm, dry, intact. Neuro: Alert oriented x 3 normal cranial nerves, no focal deficits - Assessment and Plan (1) Acute respiratory failure with hypoxia Current Visit: Yes Status: Acute Assessment and Plan: Improved. Patient currently on room air. (2) Pneumonia Current Visit: Yes Status: Acute Assessment and Plan: Complete course of Zosyn. Last dose tomorrow. (3) Pleural effusion Current Visit: Yes Status: Acute Assessment and Plan: Chest tube in place on the right side. Cardio thoracic surgery following. (4) History of esophagectomy Current Visit: Yes Status: Acute Assessment and Plan: Remains nothing by mouth and is on TPN. Plan to transition to soft diet tomorrow. 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 Chest x-ray shows stable bilateral pleural effusions. (6) Morbid obesity with BMI of 45.0-49.9, adult Current Visit: Yes Status: Chronic DVT Prophylaxis: On subcutaneous Lovenox - Time Spent with Patient Total time spent is greater than 50% in coordination of care (as documented) at patient's floor/unit and/or counseling patient: Internal Medicine: Result - Labs CBC & Chem 7: 05/07/18 03:31 05/11/18 03:05 Labs: BMP 05/11/18 03:05 Sodium 135 L Potassium 3.5 Chloride 100 Carbon Dioxide 30 H BUN 16 Creatinine 0.47 L Glucose 142 H Calcium 8.1 L - ABG Interpretation ABG results: ABG ABG pH 7.46 pH Units (7.32-7.45) H 05/04/18 04:37 ABG pCO2 35 mmHg (35-45) 05/04/18 04:37 ABG pO2 87 mmHg (85-104) 05/04/18 04:37 ABG O2 Saturation 97 % (95-98) 05/04/18 04:37 - Impressions Impressions Chest X-Ray 05/11/18 08:00 IMPRESSION: 1. Stable bilateral pleural effusions with associated bibasilar atelectasis, left side greater than right. D/ / 05/11/2018 08:37:54 Alexei Cope MD / [facility] Interpreting Provider: Alexei Cope MD Consult Discharge Plan - Plan Referrals: Дмитрий Lennon MD [Partnered Physician] - 05/16/18 8:55 am Lorin Jean Baptiste CNP [Partnered Physician] - 05/22/18 2:00 pm (Please take with you to your appointment the new patient packet the you will get in the mail filled out, If you don't receive the packet please show up 30 minutes early to fill out paper work. Take with you to your appointment you picture ID, Insurance card, a list of all medications including over the counter meds. This office does not give out controlled drugs. If you need to cancel please call [phone] 24 hours prior to your appointment) Alli Kumar MD [Partnered Physician] - 06/05/18 9:35 am (2) Pneumonia Qualifiers: Pneumonia type: due to unspecified organism Laterality: right Lung location: unspecified part of lung Qualified Code(s): J18.9 - Pneumonia, unspecified organism
[2018-05-11] MEDS ORDERED: Clinimix E 5%-20% SOLUTION 2,000 ML with MVI, adult with vitamin K 10 ML, Trace Eleme... IVC SCH (17:00)
[2018-05-12] MEDS: Ipratropium/Albuterol Neb 3 ML IH SCH ×7 (00:08→23:49)
[2018-05-12] MEDS: Piperacillin/Tazobactam 3.375 GM in 0.9 % Sodium Chloride Mini Bag 100 ML IVPB SCH ×3 (00:15→16:34)
[2018-05-12] MEDS: OXYCODONE Oral CONC 10 MG/0.5 ML ORAL.SYG SL PRN ×3 (00:16→19:00)
[2018-05-12 04:09] LABS: Basophils % 0.6 %; Eosinophils # 0.2 K/mcL (0.0-0.6); Eosinophils % 5.8 %; Hemoglobin 8.8 g/dL (11.5-15.4); Immature Granulocytes % 1.1 % (0-4); Lymphocytes # 0.4 K/mcL (0.6-4.6); Lymphocytes % 10.2 %; Mean Corpuscular HGB Conc 32.6 g/dL (31.6-35.5); Mean Corpuscular Hemoglobin 31.4 pg (28.0-33.3); Mean Corpuscular Volume 96.4 fL (83.0-100.0); Mean Platelet Volume 9.9 fL (9.4-12.4); Monocytes # 0.6 K/mcL (0.0-1.3); Monocytes % 15.4 %; Neutrophils # 2.4 K/mcL (1.6-8.9); Platelet Count 125 K/mcL (140-400); Red Cell Distribution Width 15.6 % (11.5-14.5); Segmented Neutrophils % 66.9 %
[2018-05-12 04:28] LABS: BUN/Creatinine Ratio 36 (6-26); Blood Urea Nitrogen 17 mg/dL (8-23); Calcium 7.9 mg/dL (8.6-10.3); Carbon Dioxide 29 mEq/L (23-29); Chloride 102 mEq/L (98-107); Glucose 137 mg/dL (70-105); Osmolality,Calculated 282 (280-300); Phosphorous 2.8 mg/dL (2.7-4.5); Potassium 3.6 mEq/L (3.5-5.1); Sodium 134 mEq/L (136-145); eGFR For Non-African Americans > 60 (> 60)
[2018-05-12] MEDS: Pantoprazole 40 MG VIAL IVP SCH ×2 (05:14→19:00)
[2018-05-12] MEDS: *HR* Enoxaparin 40 MG/0.4 ML SYRINGE SQ SCH (05:14)
--- NOTE | 2018-05-12 09:10 | Cardiothoracic Progress Note ---
Date of Encounter: 05/12/18 Time of Encounter: 09:09 - Assessment and plan (1) Acute respiratory failure with hypoxemia Current Visit: Yes Status: Acute The assessment and plan as outlined above was discussed with the patient and/or family members who expressed understanding and agreement. All questions were answered. 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 All questions were answered. replace k, po, mg. orders for ambulation. will plan soft diet at the end of the week, tuesday (3) Wound infection after surgery Current Visit: Yes Status: Acute The assessment and plan as outlined above was discussed with the patient and/or family members who expressed understanding and agreement. All questions were answered. dressings changes per gen surg - Subjective Interval history: none Vital Signs, Last 4 Hours Temp Pulse Resp BP Pulse Ox 05/12/18 07:43 16 96 05/12/18 07:14 97.6 F 88 18 130/71 96 Oxgyen Flow Rate Oxygen Flow Rate (LPM) 0 Clinical Data, last 8 Hours Output, Chest Tube Drainage 50 Amount [Right Mid-Axillary Chest #1] Output, Urine Amount 400 Output, Urine Amount 150 Output, Urine Amount 100 Output, Urine Amount 250 Output, Urine Amount 300 Weight 05/10/18 05/11/18 05/12/18 23:59 23:59 23:59 Weight 96.2 kg 92.1 kg - Physical Examination General: Conversant, No Apparent Distress HEENT: Atraumatic, Normocephaly Cardiac: Reg Rate and Rhythm, Normal S1 and S2 Incision: No signs of infection, Dry/intact dressing Chest tubes: Other (serous drainage ) Lungs: Normal Breath Sounds Neuro: Alert and responsive, Cranial nerves intact Abdomen: Soft, Non-tender, Other (bs present. ) Skin: Other (packing the abdominal incision ) - Labs 05/12/18 03:50 05/12/18 03:50 Lab Results, Last 24 hours 05/12/18 05/12/18 03:50 03:50 WBC 3.6 L Hgb 8.8 L Hct 27.0 L Plt Count 125 L Sodium 134 L Potassium 3.6 Chloride 102 Carbon Dioxide 29 BUN 17 Creatinine 0.47 L Glucose 137 H Calcium 7.9 L Magnesium 2.0 Consult Discharge Plan - Plan Referrals: Дмитрий Lennon MD [Partnered Physician] - 05/16/18 8:55 am Lorin Jean Baptiste CNP [Partnered Physician] - 05/22/18 2:00 pm (Please take with you to your appointment the new patient packet the you will get in the mail filled out, If you don't receive the packet please show up 30 minutes early to fill out paper work. Take with you to your appointment you picture ID, Insuranc e card, a list of all medications including over the counter meds. This office does not give out controlled drugs. If you need to cancel please call [phone] 24 hours prior to your appointment) Alli Kumar MD [Partnered Physician] - 06/05/18 9:35 am
--- NOTE | 2018-05-12 16:50 | Internal Med Progress Note ---
Hospitalist Progress Note - Encounter Date of Encounter: 05/12/18 Time of Encounter: 10:50 - Subjective Interval History: Patient was started on diet today. She is tolerating it well. Denies any new complaints. Does have some cough with deep breaths. Did have a bowel movement today. - Exam Vitals: Temp Pulse Resp BP Pulse Ox 98.4 F 91 16 126/70 96 05/12/18 16:05 05/12/18 16:05 05/12/18 16:40 05/12/18 16:05 05/12/18 16:40 Exam: General: Patient is alert, no acute distress, oriented x 3 Respiratory: Decreased breath sounds at both bases. Right-sided chest tubes in place. Cardiovascular: Regular rate and rhythm. s1 and s2 normal No clicks, rubs, gall ops, or murmurs. No pedal edema Abdomen: Abdomen is soft, nontender. Bowel sounds are present Musculoskeletal: Spontaneously moving all extremities Skin: warm, dry, intact. Neuro: Alert oriented x 3 normal cranial nerves, no focal deficits - Assessment and Plan (1) Acute respiratory failure with hypoxia Current Visit: Yes Status: Resolved Assessment and Plan: Now resolved. Patient is saturating well on room air. (2) Pneumonia Current Visit: Yes Status: Acute Assessment and Plan: Completed antibiotic course. (3) Pleural effusion Current Visit: Yes Status: Acute Assessment and Plan: with right-sided chest tube still in place. Cardio thoracic surgery following. Plan to remove chest tube tomorrow. (4) History of esophagectomy Current Visit: Yes Status: Acute Assessment and Plan: Started on diet today. Tolerating well so far. 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 Clinically doing better. (6) Morbid obesity with BMI of 45.0-49.9, adult Current Visit: Yes Status: Chronic DVT Prophylaxis: With Lovenox - Time Spent with Patient Total time spent is greater than 50% in coordination of care (as documented) at patient's floor/unit and/or counseling patient: Internal Medicine: Result - Labs CBC & Chem 7: 05/12/18 03:50 05/12/18 03:50 Labs: Short CBC 05/12/18 Range/Units 03:50 WBC 3.6 L (4.3-11.1) K/mcL Hgb 8.8 L (11.5-15.4) g/dL Hct 27.0 L (35.3-44.9) % Plt Count 125 L (140-400) K/mcL Neutrophils # 2.4 (1.6-8.9) K/mcL BMP 05/12/18 03:50 Sodium 134 L Potassium 3.6 Chloride 102 Carbon Dioxide 29 BUN 17 Creatinine 0.47 L Glucose 137 H Calcium 7.9 L - ABG Interpretation ABG results: ABG ABG pH 7.46 pH Units (7.32-7.45) H 05/04/18 04:37 ABG pCO2 35 mmHg (35-45) 05/04/18 04:37 ABG pO2 87 mmHg (85-104) 05/04/18 04:37 ABG O2 Saturation 97 % (95-98) 05/04/18 04:37 Consult Discharge Plan - Plan Referrals: Дмитрий Lennon MD [Partnered Physician] - 05/16/18 8:55 am Lorin Jean Baptiste CNP [Partnered Physician] - 05/22/18 2:00 pm (Please take with you to your appointment the new patient packet the you will get in the mail filled out, If you don't receive the packet please show up 30 minutes early to fill out paper work. Take with you to your appointment you picture ID, Insurance card, a list of all medications including over the counter meds. This office does not give out controlled drugs. If you need to cancel please call [phone] 24 hours prior to your appointment) Alli Kumar MD [Partnered Physician] - 06/05/18 9:35 am (2) Pneumonia Qualifiers: Pneumonia type: due to unspecified organism Laterality: right Lung location: unspecified part of lung Qualified Code(s): J18.9 - Pneumonia, unspecified organism
[2018-05-13] MEDS: Ipratropium/Albuterol Neb 3 ML IH SCH ×3 (03:46→11:47)
[2018-05-13] MEDS: *HR* Enoxaparin 40 MG/0.4 ML SYRINGE SQ SCH (04:54)
[2018-05-13] MEDS: Pantoprazole 40 MG VIAL IVP SCH (04:55)
[2018-05-13 07:03] VITALS: BP 117/86
--- NOTE | 2018-05-13 09:16 | Cardiothoracic Progress Note ---
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 All questions were answered. patient given gravy last night and eggs this morning. no evidence of leak. home today. (2) Wound infection after surgery Current Visit: Yes Status: Acute The assessment and plan as outlined above was discussed with the patient and/or family members who expressed understanding and agreement. All questions were answered. dressings changes per gen surg - Subjective Interval history: none Vital Signs, Last 4 Hours Temp Pulse Resp BP Pulse Ox 05/13/18 08:02 18 95 05/13/18 07:00 98.3 F 95 18 117/86 95 Oxgyen Flow Rate Oxygen Flow Rate (LPM) 0 Clinical Data, last 8 Hours Output, Chest Tube Drainage 40 Amount [Right Mid-Axillary Chest #1] Weight 05/11/18 05/12/18 05/13/18 23:59 23:59 23:59 Weight 96.2 kg 92.1 kg - Physical Examination General: Conversant, No Apparent Distress HEENT: Atraumatic, Normocephaly Cardiac: Reg Rate and Rhythm, Normal S1 and S2 Incision: No signs of infection Chest tubes: Minimal drainage Lungs: Normal Breath Sounds Neuro: Alert and responsive, Cranial nerves intact Abdomen: Soft, Non-tender - Labs 05/12/18 03:50 05/12/18 03:50 - Imaging Chest Xray: image reviewed Consult Discharge Plan - Plan Referrals: Дмитрий Lennon MD [Partnered Physician] - 05/16/18 8:55 am Lorin Jean Baptiste CNP [Partnered Physician] - 05/22/18 2:00 pm (Please take with you to your appointment the new patient packet the you will get in the mail filled out, If you don't receive the packet please show up 30 minutes early to fill out paper work. Take with you to your appointment you picture ID, Insurance card, a list of all medications including over the counter meds. This office does not give out controlled drugs. If you need to cancel please call [phone] 24 hours prior to your appointment) Alli Kumra MD [Partnered Physician] - 06/05/18 9:35 am
--- NOTE | 2018-05-13 13:30 | Discharge Summary ---
- NOTES TO OUTPATIENT PROVIDER Notes to Outpatient Provider: Patient with a history of esophageal cancer who recently underwent transhiatal esophagectomy and jejunostomy was hospitalized here with pneumonia and right-sided pleural effusion. She was treated with IV antibiotics and cardiothoracic surgery was consulted. Patient underwent chest replacement along with bronchoscopy and right thoracotomy decortication and pleurodesis and was treated in the ICU. She did require endotracheal intubation but was able to be extubated soon after. She continued to receive antibiotics for her pneumonia and has completed treatment course for it. Her chest tubes have been removed today and she has been cleared for discharge by cardiothoracic surgery. She is now tolerating oral diet and will follow up with general surgery for further management of her jejunostomy tube. Orders not resulted at time of discharge: Pending orders 05/03/18 05:59 Sputum Culture [Culture,Sputum with Gram Stain] [RM] Routine 05/14/18 08:00 Chest Xray, 1 view [XR chest 1V] [XR] DAILY Date of Encounter: 05/13/18 Time of Encounter: 13:27 - Discharge Diagnosis (1) Acute respiratory failure with hypoxia Priority: Primary Status: Resolved (2) Pneumonia Priority: Secondary Status: Acute Qualifiers: Pneumonia type: due to unspecified organism Laterality: right Lung location: unspecified part of lung Qualified Code(s): J18.9 - Pneumonia, unspecified organism (3) Pleural effusion Priority: Secondary Status: Acute (4) History of esophagectomy Priority: Secondary Status: Acute (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 Lobo is a 67 year old female Patient with a history of esophageal cancer who recently underwent transhiatal esophagectomy and jejunostomy was hospitalized here with pneumonia and right-sided pleural effusion. She was treated with IV antibiotics and cardiothoracic surgery was consulted. Patient underwent chest replacement along with bronchoscopy and right thoracotomy decortication and pleurodesis and was treated in the ICU. She did require endotracheal intubation but was able to be extubated soon after. She continued to receive antibiotics for her pneumonia and has completed treatment course for it. Her chest tubes have been removed today and she has been cleared for discharge by cardiothoracic surgery. She is now tolerating oral diet and will follow up with general surgery for further management of her jejunostomy tube. Discharge discussed with: patient, nurse - Time Spent with Patient Total time spent providing and/or coordinating discharge services: Greater than 30 minutes (45 min) - Discharge Medications Prescriptions: Oxycodone HCl/Acetaminophen [Percocet 5-325 mg Tablet] 1 each PO Q8H PRN 5 Days #10 tablet PRN Reason: Moderate to severe pain Home Medications: Omeprazole [PriLOSEC] 20 mg PO BIDAC 12/12/17 [History] Lisinopril-HCTZ 10-12.5 [Prinzide 10-12.5] 1 tab PO DAILY 04/21/18 [History] Docusate Sodium [Colace] 100 mg PO BID PRN #30 capsule 05/02/18 [Rx] Ondansetron ODT [Zofran ODT] 4 mg SL Q4HR PRN #15 tab.rapdis 05/02/18 [Rx] Oxycodone HCl/Acetaminophen [Percocet 5-325 mg Tablet] 1 each PO Q8H PRN 5 Days #10 tablet 05/13/18 [Rx] Allergies/Adverse Reactions: Allergy/AdvReac Type Severity Reaction Status Date / Time No Known Allergies Allergy Verified 04/13/18 09:45 Date of admission: 05/03/18 04:37 Primary care physician: PCP NONE Consults: 05/03/18 04:30 Consult to Cardiothoracic Surgery [CONS] Routine Consulting Provider: Cardiothoracic Surgery Kaylee Reason for Consult: Loculated pleural effusions concerning for empyema in the setting of possible pneumonia Call Completed: Yes 05/03/18 04:36 Consult to [facility] [CONS] Routine Reason for SW Consult: Home Health 05/03/18 12:17 Consult to Critical Care [CONS] Routine Consulting Provider: [facility] Reason for Consult: ventilator and critical care Call Completed: Yes Consult to Surgery [CONS] Routine Consulting Provider: Surgery [facility] Reason for Consult: chylothorax Call Completed: Yes 05/03/18 15:41 Consult to Nurse Navigator [CONS] Routine Comment: Pneumonia 05/05/18 09:50 Consult to Nutrition [CONS] Routine Comment: Consulting Provider: NUTRITION Reason for Dietary Consult: TPN Start and Manage Discharging clinician: Ismael Blankenship Anticipated date of discharge: 05/13/18 - Constitutional Vitals: Temp Pulse Resp BP Pulse Ox 98.3 F 89 16 117/86 98 05/13/18 07:00 05/13/18 09:00 05/13/18 11:49 05/13/18 07:00 05/13/18 11:49 General appearance: Present: cooperative, A&O X 3, pleasant, no acute distress, answers questions appropriately Exam: . - Neck Neck exam general surgery: Present: supple, trachea midline. Absent: lymphad enopathy - Respiratory Respiratory exam: Present: decreased breath sounds (at right base). Absent: accessory muscle use, rales, rhonchi, wheezes - Cardiovascular Cardiovascular exam: Present: RRR, +S1, +S2. Absent: diastolic murmur, gallop, rubs, systolic murmur - GI/Abdominal GI/Abdominal exam: Present: normal bowel sounds, soft, no peritoneal signs. Absent: distended, tenderness - Patient Status Disposition: Home Health Service Condition: Fair Functional capacity at discharge: uses cane/walker Overall status at discharge: patient is progressing back to baseline - Discharge Instructions Instructions: Acute Respiratory Distress Syndrome (DC) Follow Up With: Дмитрий Lennon MD [Partnered Physician] - 05/16/18 8:55 am Lorin Jean Baptiste CNP [Partnered Physician] - 05/22/18 2:00 pm (Please take with you to your appointment the new patient packet the you will get in the mail filled out, If you don't receive the packet please show up 30 minutes early to fill out paper work. Take with you to your appointment you picture ID, Insurance card, a list of all medications including over the counter meds. This office does not give out controlled drugs. If you need to cancel please call [phone] 24 hours prior to your appointment) Alli Kumar MD [Partnered Physician] - 06/05/18 9:35 am - Diet and Activity Activity: as per physical therapy, increase activity as tolerated Diet: low fat, low cholesterol, low salt diet
--- NOTE | 2018-05-13 13:38 | Physician Discharge Referral ---
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 For more information, call the [place] Tobacco Quit Line at 3-403-ICFJ-NOW. - Diet/Nutrition Diet/Nutrition Orders: Cardiac - Activity Activity Orders: Walker - Services Needed Following services are medically necessary services: Nursing, Physical Therapy, Occupational Therapy - Transfer Medications Prescriptions: Oxycodone HCl/Acetaminophen [Percocet 5-325 mg Tablet] 1 each PO Q8H PRN 5 Days #10 tablet PRN Reason: Moderate to severe pain Home Medications: Omeprazole [PriLOSEC] 20 mg PO BIDAC 12/12/17 [History] Lisinopril-HCTZ 10-12.5 [Prinzide 10-12.5] 1 tab PO DAILY 04/21/18 [History] Docusate Sodium [Colace] 100 mg PO BID PRN #30 capsule 05/02/18 [Rx] Ondansetron ODT [Zofran ODT] 4 mg SL Q4HR PRN #15 tab.rapdis 05/02/18 [Rx] Oxycodone HCl/Acetaminophen [Percocet 5-325 mg Tablet] 1 each PO Q8H PRN 5 Days #10 tablet 05/13/18 [Rx] Allergies/Adverse Reactions: Allergy/AdvReac Type Severity Reaction Status Date / Time No Known Allergies Allergy Verified 04/13/18 09:45 Certification: Further, I certify that my clinical findings support that this patient is homebound (i.e. absences from home require considerable and taxing effort and are for medical reasons or [employer] services or infrequently or short duration when for other reasons) because: Homebound Reason: Patient requires assistance of a person or device to safely leave home Attestation: My signature below is to certify that this patient is under my care and that I, or nurse practitioner, or a physician's technician assistant working with me, has a [id number] encounter with this patient.
[2018-05-13] MEDS: OXYCODONE Oral CONC 10 MG/0.5 ML ORAL.SYG SL PRN (14:05)
== END 2018-05-13 15:45 | disposition home health service (06) | DRG 853 ==
LOC: 2NNU 00:26 → EMEROOARM 00:26 → 2NNU 03:44 → SUATTDRO 04:37 → ICNU 12:17 → 2NNU 05-07 17:42
PROVIDERS: ADMIT Internal Medicine; ATTEND Internal Medicine